=== PATIENT | female | born 1975 | race Caucasian/White ===

== ENCOUNTER → 2017-10-05 08:18 | Outpatient (CLI) | payer OTHER, SELFPAY ==
[2017-10-05 08:41] LABS: Basophils % 0.5 % (0.1-2.0); Eosinophils # 0.3 K/mm3 (0.0-0.4); Eosinophils % 3.7 % (0.1-12.0); Hematocrit 45.1 % (37.0-47.0); Hemoglobin 15.1 g/dL (12.2-16.2); Lymphocytes # 2.3 K/mm3 (0.7-4.5); Lymphocytes % 30.4 K/mm3 (10-50); Mean Corpuscular HGB Conc 33.4 g/dL (31.8-35.4); Mean Corpuscular Hemoglobin 30.3 pg (27.0-31.2); Mean Corpuscular Volume 90.8 fl (81-99); Mean Platelet Volume 7.3 fl (7.4-10.4); Monocytes # 0.3 K/mm3 (0.1-1.0); Neutrophils # 4.7 K/mm3 (1.8-7.8); Neutrophils % 61.3 % (37.0-80.0); Platelet Count 217 K/mm3 (142-424); Red Blood Count 4.97 M/mm3 (4.20-5.40); Red Cell Distribution Width 13.8 % (11.5-17.5); White Blood Count 7.6 K/mm3 (4.8-10.8)
[2017-10-05 09:25] LABS: Alanine Aminotransferase 24 U/L (12-78); Albumin Level 3.2 gm/dL (3.4-5.0); Alkaline Phosphatase 91 U/L (46-116); Anion Gap 8.2 mEq/L (5-15); Aspartate Amino Transferase 11 U/L (15-37); Bilirubin,Direct 0.1 mg/dL (0.0-0.2); Bilirubin,Indirect 0.3 mg/dL (0.0-0.9); Bilirubin,Total 0.4 mg/dL (0.2-1.0); Blood Urea Nitrogen 17 mg/dL (7-18); Calcium 8.4 mg/dL (8.5-10.1); Carbon Dioxide 30 mmol/L (21.0-32.0); Chloride 106 mmol/L (98-107); Chol/HDL Ratio 4.4 (1-3.5); Cholesterol 192 mg/dL (140-200); Creatinine,Serum 0.77 mg/dL (0.55-1.02); Estimated Glomerular Filt Rate 82 ml/min (>60); Free T4 (Free Thyroxine) 0.92 ng/dl (0.76-1.46); GFR (African American) 99 ML/MIN (>60); Glucose 83 mg/dL (74-106); HDL Cholesterol 44 mg/dL (29-89); LDL Cholesterol 134 mg/dL (0-130); Potassium 4.2 mmoL/L (3.5-5.1); Sodium 140 mmol/L (136-145); Thyroid Stimulating Hormone 6.02 uIU/ml (0.358-3.740); Total Protein,Serum 6.4 gm/dL (6.4-8.2); Triglycerides 72 mg/dL (30-200); VLDL Cholesterol 14 mg/dL (0-40)
== END ==
PROVIDERS: PCP Physician Assistant; Visit Provider Internal Medicine
DX: I25.10 Atherosclerotic heart disease of native coronary artery without angina pectoris (principal); R06.02 Shortness of breath; R07.9 Chest pain, unspecified
CPT/HCPCS: 36415; 80048; 80061; 80076; 84439; 84443; 85025

== ENCOUNTER → 2017-10-17 10:40 | Outpatient (CLI) | payer OTHER, SELFPAY ==
--- NOTE | 2017-10-17 10:42 | CA_ITS ---
PROCEDURE: 2-D M-mode and color Doppler study INDICATIONS FOR THE TEST: Chest pain + COPD Heart Murmur Tobacco Smoking+ Palpitations Fatigue+ Syncope Edema+ Hypertension+Diabetes Mellitus+ Rheumatic Fever SOB+DAVIDSON Obesity+Hyperlipidemia Family History HD Additional History PATIENT INFORMATION HEIGHT: 66 WEIGHT:352 GENDER: Female B/P:133/67 2-D/M-MODE INTERPRETATION: 2-D MEASUREMENTS OBSERVED VALUES IN CMS Right Ventricular Dimension (RVDd) 1.8 Interventricular Septum (Thickness)(IVsd) 1.1 Left Ventricular Internal Dimensions(LVIDd) 5.6 Left Ventricular Posterior Wall (Thickness)(LVPWd) 1.0 Aortic Root 3.1 Aortic Cusp Separation 2.0 Left Atrial Dimensions (LAD) 4.1 2D 1. Left atrium is mildly enlarged, left ventricle is normal size, there is mild concentric left ventricular hypertrophy, visually estimated ejection fraction 55% with no obvious regional wall motion abnormality. 2. The right atrium and right ventricle are mildly enlarged with normal contractility. 3. The aortic valve is minimally thickened and fibrosed. 4. The mitral and tricuspid valvular grossly normal. 5. The pulmonic valve is poorly visualized. 6. No significant pericardial effusion noted. DOPPLER INTERROGATION: Doppler interrogation of the aortic, mitral and tricuspid valvular presence of mild mitral and tricuspid regurgitation, calculated right ventricular systolic pressure is 37 mmHg consistent with mild pulmonary hypertension, grade 1 diastolic dysfunction seen with tissue Doppler evidence of raised left atrial pressure. CONCLUSION: 1. Mild biatrial enlargement, normal left ventricular size, mild concentric left ventricular hypertrophy, visually estimated ejection fraction 55% with no obvious regional wall motion abnormality, grade 1 diastolic dysfunction seen with tissue Doppler evidence of raised left atrial pressure. 2. Mildly enlarged right ventricle with normal contractility. 3. Mild mitral and tricuspid regurgitation, calculated right ventricular systolic pressure is 37 mmHg consistent with mild pulmonary hypertension. 4. No significant pericardial effusion noted.
--- NOTE | 2017-10-17 10:42 | NM_ITS ---
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 Resting blood pressure is 122/62. Stress blood pressure 119/65. FINDINGS: Ejection fraction is calculated to be 56. Stress images reveal mildly decreased activity in the anterior wall moderate to severely decreased activity in the inferior wall rest images reveal worsening activity in both the inferior and anterior wall. Gated images calculated ejection fraction of 56% with normal wall motion IMPRESSION: Abnormal high risk Myoview with reverse redistribution in both the anterior and inferior wall. Normal ejection fraction normal wall motion
--- NOTE | 2017-10-17 12:24 | HMH.ITSHM ---
ATORVASTATIN BISOPROLOL ASA NITRO
== END ==
PROVIDERS: PCP Physician Assistant; Visit Provider Internal Medicine
DX: I25.10 Atherosclerotic heart disease of native coronary artery without angina pectoris (principal); R06.02 Shortness of breath; R07.9 Chest pain, unspecified
CPT/HCPCS: 78452; 93017; 93306; 93325; A9502; J2785

== ENCOUNTER → 2018-04-05 11:16 | Outpatient (CLI) | payer OTHER, SELFPAY ==
--- NOTE | 2018-04-05 11:23 | XR_ITS ---
XR tibia fibula RT 2V CLINICAL INDICATION: ITS.REASON: RT KNEE AND ANKLE PAIN ORDERING PHYSICIAN: Hodan Villalba PATIENT AGE: 43 years Comparison: None FINDINGS: There are moderate osteoarthritic changes of the knee greater at the medial compartment. There is a bone plate overlying the distal fibula with a healed fracture of the distal fibula with good alignment. The bone plate has an unremarkable appearance. There are mild osteoarthritic changes of the ankle. IMPRESSION: Prior ORIF distal healed distal fibular fracture with good alignment.
--- NOTE | 2018-04-05 11:23 | XR_ITS ---
XR ankle RT min 3V HISTORY: ITS.REASON: RT KNEE AND ANKLE PAIN ORDERING PHYSICIAN: Hodan Villalba PATIENT AGE: 43 years Comparison: 04/24/2017 FINDINGS: There is a healed distal fibular fracture with a bone plate present. There has been interval removal of the distal most screw within the bone plate which also enters the distal tibia and there has been removal of the 2 screws within the medial malleoli region. There is good alignment with no acute fracture or dislocation. There is a rounded calcific density distal to the tip of the lateral malleolus consistent with an old fracture or accessory center of ossification. The ankle mortise is preserved and the talar dome has an unremarkable appearance. IMPRESSION: Good alignment status post ORIF distal fibula and removal of a distal bone plate screw and medial malleoli screws compared to the previous exam
--- NOTE | 2018-04-05 11:23 | XR_ITS ---
XR knee RT 3V HISTORY: ITS.REASON: RT KNEE AND ANKLE PAIN ORDERING PHYSICIAN: Hodan Villalba PATIENT AGE: 43 years COMPARISON: None FINDINGS: There are moderate tricompartmental osteoarthritic changes greatest at the medial compartment. Osteophytes are present at both medial lateral compartment and patellofemoral joint. No fracture or dislocation. No lytic or blastic change. IMPRESSION: Moderate osteoarthritis of the right knee greatest at the medial compartment
== END ==
PROVIDERS: PCP Nurse Practitioner Family; Visit Provider Nurse Practitioner Family
DX: M25.561 Pain in right knee (principal); M25.571 Pain in right ankle and joints of right foot; M79.661 Pain in right lower leg
CPT/HCPCS: 73562; 73590; 73610

== ENCOUNTER 2018-04-12 16:50 | Outpatient (RCR) | payer OTHER, SELFPAY | END 2018-05-15 12:12 | disposition home or self-care (01) | LOC: PT.CARL 16:50 | PROVIDERS: Visit Provider Nurse Practitioner Family | DX: M25.561 Pain in right knee (principal) | CPT/HCPCS: 97010; 97014; 97033; 97110; 97163; G0283 ==

== ENCOUNTER → 2018-05-17 09:45 | Outpatient (CLI) | payer OTHER, SELFPAY ==
--- NOTE | 2018-05-17 09:49 | XR_ITS ---
XR knee RT 4V HISTORY: Chronic knee pain ITS.REASON: Ap, Lateral, [place], [place] weight bearing ORDERING PHYSICIAN: Val Arroyo MD PATIENT AGE: 43 years COMPARISON: None COMPARISON: 04/05/2018 FINDINGS: There are moderate to severe osteoarthritic changes of the medial compartment and mild osteoarthritis of the lateral compartment and patellofemoral joint. No fracture or dislocation evident. Spurring is present in medial lateral compartments and at the intercondylar region and an interspinous area of the tibia. No fracture or dislocation. No lytic or blastic change. No significant change from 04/05/2018 given the difference in technique. IMPRESSION: Moderate to severe osteoarthritis of the right knee
== END ==
PROVIDERS: PCP Physician Assistant; Visit Provider Orthopaedic Surgery
DX: M25.561 Pain in right knee (principal)
CPT/HCPCS: 73564

== ENCOUNTER → 2018-10-25 07:50 | Outpatient (CLI) | payer OTHER, SELFPAY ==
[2018-10-25 08:35] LABS: Basophils % 0.4 % (0.1-2.0); Eosinophils # 0.2 K/mm3 (0.0-0.4); Eosinophils % 2.5 % (0.1-12.0); Hematocrit 47.2 % (37.0-47.0); Hemoglobin 15.7 g/dL (12.2-16.2); Lymphocytes # 2.4 K/mm3 (0.7-4.5); Lymphocytes % 29.5 % (10-50); Mean Corpuscular HGB Conc 33.2 g/dL (31.8-35.4); Mean Corpuscular Hemoglobin 30.1 pg (27.0-31.2); Mean Corpuscular Volume 90.7 fl (81-99); Mean Platelet Volume 7.2 fl (7.4-10.4); Monocytes # 0.5 K/mm3 (0.1-1.0); Monocytes % 6.2 % (1.7-9.3); Neutrophils # 4.9 K/mm3 (1.8-7.8); Neutrophils % 61.4 % (37.0-80.0); Platelet Count 253 K/mm3 (142-424); Red Cell Distribution Width 13.4 % (11.5-17.5)
[2018-10-25 11:01] LABS: Alanine Aminotransferase 24 U/L (12-78); Albumin Level 3.3 gm/dL (3.4-5.0); Alkaline Phosphatase 84 U/L (46-116); Anion Gap 9.6 mEq/L (5-15); Aspartate Amino Transferase 16 U/L (15-37); Bilirubin,Direct 0.1 mg/dL (0.0-0.2); Bilirubin,Indirect 0.5 mg/dL (0.0-0.9); Bilirubin,Total 0.6 mg/dL (0.2-1.0); Blood Urea Nitrogen 12 mg/dL (7-18); Calcium 8.8 mg/dL (8.5-10.1); Carbon Dioxide 33 mmol/L (21.0-32.0); Chloride 103 mmol/L (98-107); Chol/HDL Ratio 4.6 (1-3.5); Cholesterol 167 mg/dL (140-200); Creatinine,Serum 0.78 mg/dL (0.55-1.02); Estimated Glomerular Filt Rate 81 ml/min (>60); GFR (African American) 98 ML/MIN (>60); Glucose 78 mg/dL (74-106); HDL Cholesterol 36 mg/dL (29-89); LDL Cholesterol 112 mg/dL (0-130); Potassium 4.6 mmoL/L (3.5-5.1); Sodium 141 mmol/L (136-145); Thyroid Stimulating Hormone 5.91 uIU/ml (0.358-3.740); Total Protein,Serum 6.5 gm/dL (6.4-8.2); Triglycerides 95 mg/dL (30-200); Triiodothryronine (T3) Uptake 33 % (31-39); VLDL Cholesterol 19 mg/dL (0-40)
== END ==
PROVIDERS: Visit Provider Physician Assistant
DX: E78.49 Other hyperlipidemia (principal); I10 Essential (primary) hypertension; I73.9 Peripheral vascular disease, unspecified; R07.9 Chest pain, unspecified; R60.9 Edema, unspecified; Z72.0 Tobacco use; I70.1 Atherosclerosis of renal artery; G47.33 Obstructive sleep apnea (adult) (pediatric); I27.20 Pulmonary hypertension, unspecified; I51.89 Other ill-defined heart diseases
CPT/HCPCS: 36415; 80048; 80061; 80076; 84436; 84443; 84479; 85025

== ENCOUNTER 2019-06-27 09:57 | Emergency (ER) | payer OTHER, SELFPAY ==
[2019-06-27 10:06] VITALS: BP 117/85; PULSE 85; RESP 16; TEMP 36.5; O2SAT 98; BMI 57.7
[2019-06-27 10:10] VITALS: BMI 57.7
--- NOTE | 2019-06-27 10:10 | XR_ITS ---
PROCEDURE: XR CHEST 2V CLINICAL HISTORY: weakness Smoker COMPARISON: CXR CHEST(2 VIEWS-NOT PORTABLE) from 10/12/2013 CXR CHEST(2 VIEWS-NOT PORTABLE) from 08/14/2014 CXR2V XR chest 2V from 11/02/2017 FINDINGS: The cardiomediastinal silhouette and pulmonary vascularity are within normal limits. The lungs are clear without infiltrates, suspicious nodules, or pleural effusions. No acute bony abnormalities. IMPRESSION: No acute findings. Dictated by: Dilshad Singh MD 06/27/2019 11:07 Electronically signed by Dilshad Singh MD in [place] 06/27/2019 11:07
[2019-06-27 10:21] LABS: Basophils # 0.2 K/mm3 (0-0.2); Basophils % 1.8 % (0.1-2.0); Eosinophils # 0.3 K/mm3 (0.0-0.4); Eosinophils % 3.7 % (0.1-12.0); Hematocrit 43.5 % (37.0-47.0); Hemoglobin 14.3 g/dL (12.2-16.2); Lymphocytes # 2.8 K/mm3 (0.7-4.5); Lymphocytes % 31.3 % (10-50); Mean Corpuscular HGB Conc 32.8 g/dL (31.8-35.4); Mean Corpuscular Hemoglobin 30.1 pg (27.0-31.2); Mean Platelet Volume 7.8 fl (7.4-10.4); Monocytes # 0.3 K/mm3 (0.1-1.0); Monocytes % 3.5 % (1.7-9.3); Neutrophils # 5.4 K/mm3 (1.8-7.8); Neutrophils % 59.8 % (37.0-80.0); Platelet Count 231 K/mm3 (142-424); Red Blood Count 4.73 M/mm3 (4.20-5.40)
[2019-06-27 10:39] LABS: Microscopic, Urine URINE MICROSCOPIC (MICROSCOPIC)
[2019-06-27 10:40] LABS: Anion Gap 5.9 mEq/L (5-15); Blood Urea Nitrogen 15 mg/dl (7-17); Calcium 8.7 mg/dl (8.4-10.2); Carbon Dioxide 31 mmol/L (22.0-30.0); Chloride 102 mmol/L (98-107); Creatinine Clearance Estimated 96 mL/min (50-200); Estimated Glomerular Filt Rate 91 ml/min (>60); GFR (African American) 110 ML/MIN (>60); Glucose 136 mg/dl (74-100); Potassium 3.9 mmoL/L (3.5-5.1); Sodium 135 mmol/L (136-145)
--- NOTE | 2019-06-27 10:45 | ECG_ITS ---
APPROVED REPORT Exam: Resting ECG HR:78 bpm ECG Measurements Heart Rate 78 AXES DC 156 P 70 QRSd 102 QRS 24 QT 390 T 57 QTc 444 <Conclusion> Normal sinus rhythm Incomplete right bundle branch block Borderline ECG Electronically signed by : Tc Israel, 06/28/2019 21:41:13
[2019-06-27 10:54] LABS: Troponin I < 0.01 ng/ml (0.00-0.034)
[2019-06-27 10:55] LABS: Appearance,Urine CLEAR (Clear); Bilirubin,Urine Negative (Negative); Blood, Urine Negative (Negative); Color,Urine DK YELLOW (Yellow); Glucose,Urine (UA) Negative (Negative); Ketones,Urine Negative (Negative); Leukocyte Esterase,Urine TRACE (Negative); Nitrate,Urine Negative (Negative); PH,Urine 5.5 (5.0-8.5); Protein,Urine Negative (Negative); Specific Gravity, Urine >= 1.030 (1.005-1.030); Urobilinogen,Urine 0.2 EU/dl (0.2)
[2019-06-27 11:02] LABS: Bacteria,Urine 1+ /lpf
--- NOTE | 2019-06-27 11:27 | HMH.EDDIZZ ---
ED Disposition Clinical Impression: UTI (urinary tract infection), Dizziness Disposition: Home, Self-Care Condition on Discharge: Good Instructions: Dizziness, Nonvertigo Prescriptions: Sulfamethoxazole/Trimethoprim [Bactrim DS tablet] 1 each PO BID 10 Days #20 tab Transmission Status: Pending to [id number] Meclizine HCl [Meclizine 25mg Tab] 25 mg PO TID 10 Days #30 tab Transmission Status: Pending to [id number] Referrals: Sharee Patrick APRN [Primary Care Provider] - - Critical Care Critical Care Time: No Attestation: On 06/27/19, the high probability of a clinically significant, sudden or life threatening deterioration of the following system(s) required my full and direct attention, intervention and personal management. The time I documented below is in addition to time spent performing reported procedures but includes the following listed in this critical care notation. Medical Decision Making - Medical Records Medical records reviewed: Yes: I reviewed the patient's medical records. - Jimmie Inquiry Pt receiving controlled substance: No Vital Signs: 06/27/19 10:06 Temperature 97.7 F Temperature Source Oral Pulse Rate [Left Radial] 85 Respiratory Rate 16 Blood Pressure [Right Arm] 117/85 Blood Pressure Mean [Right Arm] 95 Blood Pressure Position [Right Arm] Sitting 02 Sat by Pulse Oximetry 98 Oxygen Delivery Method Room Air - Lab Data Lab results reviewed: Yes: I reviewed the patient's lab results. Lab Results 06/27/19 10:12: WBC 9.0, RBC 4.73, Hgb 14.3, Hct 43.5, MCV 92.0, MCH 30.1, MCHC 32.8, RDW 14.0, Plt Count 231, MPV 7.8, Neut % (Auto) 59.8, Lymph % (Auto) 31.3, Merrick % (Auto) 3.5, Eos % (Auto) 3.7, Baso % (Auto) 1.8, Neut # (Auto) 5.4, Lymph # (Auto) 2.8, Merrick # (Auto) 0.3, Eos # (Auto) 0.3, Baso # (Auto) 0.2 06/27/19 10:20: Sodium 135 L, Potassium 3.9, Chloride 102, Carbon Dioxide 31 H, Anion Gap 5.9, BUN 15, Creatinine 0.70, Estimated Creat Clear 96, Estimated GFR 91, Est GFR ( Amer) 110, Glucose 136 H, Calcium 8.7, Troponin I < 0.01 06/27/19 10:25: Urine Color Dk yellow, Urine Appearance Clear, Urine pH 5.5, Ur Specific Clementon >= 1.030, Urine Protein Negative, Urine Glucose (UA) Negative, Urine Ketones Negative, Urine Blood Negative, Urine Nitrate Negative, Urine Bilirubin Negative, Urine Urobilinogen 0.2, Ur Leukocyte Esterase Trace, Urine RBC 5-10, Urine WBC 10-20, Ur Squamous Epith Cells 5-10, Urine Bacteria 1+ Result diagrams: 06/27/19 10:12 06/27/19 10:20 Orders (Tests/Meds): ED MEDICATIONS Generic Name Dose Route Start Last Admin Trade Name Freq PRN Reason Stop Dose Admin Sodium Chloride 1,000 mls @ 999 mls/hr 06/27/19 11:15 06/27/19 11:11 Sod Chlor 0.9% 1000ml Bag IV 06/27/19 12:15 999 mls/hr .Q1H1M TERRY Administration ORDERS Category Date Time Status Troponin I Q3H Lab 06/27/19 13:15 Ordered Troponin I Q3H Lab 06/27/19 16:15 Ordered Urine Culture Stat Micro 06/27/19 10:25 Received Dizzy HPI - General Chief Complaint: Dizziness Stated Complaint: lightheaded,dizzy,no energy Time Seen by Provider: 06/27/19 11:27 Mode of Arrival: Ambulatory Source of Information: Patient Limitations: No Limitations Description of Symptoms (Recalled from ER Triage Doc. by RN): to ed per pvt car with c/o dizziness, lightheaded and fatique starting this am. pt states took BS and reading was 158. pt denies any chest pain, sob, fever, cough or extremity weakness. - History of Present Illness HPI Narrative: 44-year-old female presents the ED with fatigue and dysuria. Patient denies any fever or shortness of breath or cough. She states this started today. MD complaint: dizziness, lightheadedness Onset (ago): hour(s) Timing: sudden onset Description: room spinning History of similar episodes: Yes History of trauma: No Severity: mild Relieving factors: nothing Exacerbating factors: nothing - Related Data Home Medications
[2019-06-27 11:46] VITALS: BP 115/74; PULSE 87; RESP 16; TEMP 36.6; O2SAT 98
== END 2019-06-27 11:47 | disposition home or self-care (01) ==
PROVIDERS: Emergency Provider Family Medicine; PCP Nurse Practitioner Family
DX: N39.0 Urinary tract infection, site not specified (principal); E03.9 Hypothyroidism, unspecified; I25.10 Atherosclerotic heart disease of native coronary artery without angina pectoris; F41.8 Other specified anxiety disorders; E11.9 Type 2 diabetes mellitus without complications; I10 Essential (primary) hypertension; Z90.49 Acquired absence of other specified parts of digestive tract
CPT/HCPCS: 71046; 80048; 81001; 84484; 85025; 87086; 93005; 96365; 99284

== ENCOUNTER 2019-07-18 09:54 | Emergency (ER) | payer OTHER, SELFPAY ==
[2019-07-18 10:02] VITALS: BP 136/75; PULSE 86; RESP 18; TEMP 36.5; O2SAT 99; BMI 59.7
--- NOTE | 2019-07-18 10:14 | XR_ITS ---
PROCEDURE: XR KNEE LT 3V CLINICAL INDICATION: pain, no injury COMPARISON: [id number] XR knee RT 3V from 04/05/2018 [id number] XR knee RT 4V from 05/17/2018 XR KNEE RT 3V from 03/12/2019 XR KNEE LT 3V from 03/12/2019 FINDINGS: There are tricompartmental osteoarthritic changes. This is most severe at the medial compartment. No acute fracture or dislocation. No lytic or blastic change. IMPRESSION: Moderate to severe osteoarthritic change probably overall not significantly changed considering some difference in technique Dictated by: Dilshad Singh MD 07/18/2019 10:47 Electronically signed by Dilshad Singh MD in [place] 07/18/2019 10:47
--- NOTE | 2019-07-18 10:14 | XR_ITS ---
PROCEDURE: XR ANKLE LT MIN 3V CLINICAL INDICATION: pain, no injury COMPARISON: No exams were available for comparison FINDINGS: No fracture, dislocation, lytic change, or blastic change evident. No significant degenerative change There is moderate soft tissue swelling along the lateral aspect of the ankle. There is some faint soft tissue calcification medially and laterally. The talar dome has an unremarkable appearance and the ankle mortise is preserved. IMPRESSION: Soft tissue swelling otherwise negative Dictated by: Dilshad Singh MD 07/18/2019 10:52 Electronically signed by Dilshad Singh MD in [place] 07/18/2019 10:52
--- NOTE | 2019-07-18 10:25 | HMH.EDGENADL ---
ED Disposition Clinical Impression: Knee pain Qualifiers: Chronicity: acute Laterality: left Qualified Code(s): M25.562 - Pain in left knee Disposition: Home, Self-Care Condition on Discharge: Good Instructions: DI for Acute Pain -- Adult Additional Instructions: see pcp for follow up Prescriptions: predniSONE [Prednisone 20mg Tab] 20 mg PO BID #10 tab Transmission Status: Pending to [facility] Referrals: Sharee Patrick APRN [Primary Care Provider] - - Critical Care Critical Care Time: No Attestation: On , the high probability of a clinically significant, sudden or life threatening deterioration of the following system(s) required my full and direct attention, intervention and personal management. The time I documented below is in addition to time spent performing reported procedures but includes the following listed in this critical care notation. Medical Decision Making - Medical Records Medical records reviewed: Yes: I reviewed the patient's medical records. - Jimmie Inquiry Pt receiving controlled substance: No Vital Signs: 07/18/19 10:02 Temperature 97.7 F Temperature Source Oral Pulse Rate [Left Radial] 86 Respiratory Rate 18 Blood Pressure [Left Arm] 136/75 Blood Pressure Mean [Left Arm] 95 Blood Pressure Source [Left Arm] Automatic Cuff Blood Pressure Position [Left Arm] Sitting 02 Sat by Pulse Oximetry 99 Oxygen Delivery Method Room Air - Lab Data Lab results reviewed: Yes: I reviewed the patient's lab results. Orders (Tests/Meds): ORDERS Category Date Time Status XR ankle LT min 3V Stat Exams 07/18/19 10:14 Taken XR knee LT 3V Stat Exams 07/18/19 10:14 Taken - Radiology Data #1 Image(s): Knee, Ankle Image Reviewed: Yes I reviewed the patient's radiology image Preliminary Findings: Abnormal, No Fracture Seen General Adult HPI - General Chief complaint: PAIN Stated complaint: left knee pain Time Seen by Provider: 07/18/19 10:25 Mode of Arrival: Wheelchair Source of Information: Patient, Medical Record Limitations: No Limitations Description of Symptoms (Recalled from ER Triage Doc. by RN): Pt c/o pain in L knee radiating down to L ankle. Pt also reports tightness in L calf. Pt states no known injury. Pt reports has chronic pain in kathleen knees but pain in LLE has worsened over the past week. - History of Present Illness HPI narrative: ongoing daily pain tim lt knee - feels unstable - has seen ortho - no trauma Onset (ago): day(s) Location: lower extremity Severity: moderate Associated symptoms: denies other symptoms Treatments prior to arrival: none - Related Data Home Medications Medication Instructions Recorded Confirmed gabapentin 800 mg tablet 800 mg PO TID tab MDD PAIN 11/01/17 07/18/19 hydrocodone 5 mg-acetaminophen 325 1 tab PO TID PRN 11/01/17 07/18/19 mg tablet tramadol 50 mg tablet 50 mg PO TID 11/01/17 07/18/19 levothyroxine 100 mcg tablet 100 mcg PO DAILY tab 02/05/19 07/18/19 methocarbamol 750 mg tablet 750 mg PO TID tab 07/13/19 07/18/19 Previous Rx's Medication Instructions Recorded amlodipine 5 mg tablet 5 mg PO DAILY #30 tab 07/13/19 atorvastatin 20 mg tablet 20 mg PO DAILY #30 tab 07/13/19 bisoprolol fumarate 10 mg tablet 10 mg PO DAILY #30 tab 07/13/19 losartan 50 mg tablet 50 mg PO DAILY #30 tab 07/13/19 torsemide 100 mg tablet 50 mg PO DAILY #30 tab 07/13/19 predniSONE [Prednisone 20mg 20 mg PO BID #10 tab 07/18/19 Tab] Allergies Allergy/AdvReac Type Severity Reaction Status Date / Time isosorbide AdvReac Mild Verified 07/13/19 11:10 [facility] History - Hepatitis A Screen Drug use history?: No High risk sexual behaviors?: No History of sexually transmitted infection?: No Currently employed?: No Childcare worker?: No Do you have indoor plumbing?: Yes Do you have electricity?: Yes Attestation statement:: This patient has been screened for Hepatitis A risk factors. I have r
[2019-07-18 11:08] VITALS: BP 112/69; PULSE 78; RESP 16; TEMP 36.6; O2SAT 98
== END 2019-07-18 11:10 | disposition home or self-care (01) ==
PROVIDERS: Emergency Provider Emergency Medicine; PCP Nurse Practitioner Family
DX: M25.562 Pain in left knee (principal); F41.8 Other specified anxiety disorders; I25.10 Atherosclerotic heart disease of native coronary artery without angina pectoris; E78.5 Hyperlipidemia, unspecified; I10 Essential (primary) hypertension; Z90.49 Acquired absence of other specified parts of digestive tract; F17.210 Nicotine dependence, cigarettes, uncomplicated
CPT/HCPCS: 73562; 73610; 99282

== ENCOUNTER → 2019-08-03 14:11 | Outpatient (CLI) | payer OTHER, SELFPAY | PROVIDERS: PCP Nurse Practitioner Family; Visit Provider Internal Medicine Cardiovascular Disease | DX: G47.33 Obstructive sleep apnea (adult) (pediatric) (principal) | CPT/HCPCS: G0399 ==

== ENCOUNTER 2020-10-11 15:56 | Emergency (ER) | payer BC, OTHER, SELFPAY ==
[2020-10-11 17:00] VITALS: BP 138/99; PULSE 73; RESP 18; TEMP 36.9; O2SAT 97; BMI 62.9
[2020-10-11 17:24] VITALS: BP 138/99; PULSE 73; RESP 18; TEMP 36.9; O2SAT 97
--- NOTE | 2020-10-11 17:38 | HMH.EDUTC ---
[facility] Disposition Clinical Impression: Exposure to COVID-19 virus Disposition: Home, Self-Care Condition on Discharge: Good Instructions: DI for COVID-19 (Suspected or Confirmed ), Preventing the Spread of Coronavirus Discharge Instructions Additional Instructions: *Monitor Temp, Over the counter Motrin or Tylenol as directed/as needed Tylenol every 4 hours and Motrin every 6 hours (as long as your family doctor has told you that you can take it) for fever or pain. and straight to ER if unable to lower temp less than 101.0 after medication given Follow up IMMEDIATELY for new or worsening symptoms or no Noticeable improvement over the next 48-72 hours. 911 for difficulty breathing or swallowing You were tested for today for COVID19 your test result should be back in the next 24-48 hours, You was given written instructions for [facility] portal you can see your results there when they come back you may check it often to see if they are done You was given a handout with instructions for Self Quarantine and Self isolation for while you wait on test results and what to do if they are positive If you are positive the Health Dept will be contacting you also Make sure to take your Vitamins Vit. C Vit D and Zinc if you can take them Referrals: Sharee Patrick APRN [Primary Care Provider] - As needed Forms: Work/School Release Time of Disposition: 17:47 Medical Decision Making - Jimmie Inquiry Pt receiving controlled substance: No Jimmie was queried for this patient: No Vital Signs: 10/11/20 17:00 10/11/20 17:24 Temperature 98.5 F 98.5 F Temperature Source Oral Pulse Rate 73 Pulse Rate [Right Brachial] 73 Respiratory Rate 18 18 Blood Pressure 138/99 H Blood Pressure [Right Arm] 138/99 H Blood Pressure Mean [Right Arm] 112 Blood Pressure Source [Right Arm] Automatic Cuff Blood Pressure Position [Right Arm] Sitting 02 Sat by Pulse Oximetry 97 Oxygen Delivery Method Room Air Orders (Tests/Meds): ORDERS Category Date Time Status Covid-19 Nasal PCR ([facility]) Routine Lab 10/11/20 17:46 Ordered [facility] HPI - General Stated complaint: covid TEST Time Seen by Provider: 10/11/20 17:38 Mode of Arrival: Ambulatory Source of Information: Patient Limitations: No Limitations Description of Symptoms (Recalled from Triage Doc. by RN): COVID TEST D/T EXPOSURE. C/O SOA AND HEADACHE HEENT Symptoms (Recalled from RN notes): No Resp Symptoms (Recalled from RN notes): Yes Skin Symptoms (Recalled from RN notes): No MS Symptoms (Recalled from RN notes): No Functional Status (Recalled from RN notes): WNL - History of Present Illness Provider Complaint: Patient states that her tested positive for COVID earlier today and she has been having headache and cough and thought it may have been where she smokes States that at time she has SOA but she does that all the time so never thought about COVID - Related Data Home Medications Medication Instructions Recorded Confirmed gabapentin 800 mg tablet 800 mg PO TID tab MDD PAIN 11/01/17 09/05/19 hydrocodone 5 mg-acetaminophen 325 1 tab PO TID PRN 11/01/17 09/05/19 mg tablet tramadol 50 mg tablet 50 mg PO TID 11/01/17 09/05/19 levothyroxine 100 mcg tablet 100 mcg PO DAILY tab 02/05/19 09/05/19 methocarbamol 750 mg tablet 750 mg PO TID tab 07/13/19 09/05/19 aspirin 81 mg tablet,delayed 81 mg PO DAILY 09/05/19 09/05/19 release Previous Rx's Medication Instructions Recorded atorvastatin 20 mg tablet 20 mg PO DAILY #30 tab 01/11/20 bisoprolol fumarate 10 mg tablet 10 mg PO DAILY #30 tab 01/11/20 spironolactone 100 mg tablet 100 mg PO DAILY #30 tab 01/11/20 omeprazole 40 mg capsule,delayed 40 mg PO QDAY #30 cap 04/18/20 release bupropion HCl 150 mg tablet,12 hr 150 mg PO BID #87 tab 07/11/20 sustained-release losartan 100 mg tablet 100 mg PO DAILY #30 tab 07/11/20 nicotine See Rx Instructions TRANSDERMA 07/11/20 21mg/24hr-14mg/24hr-7mg/24hr daily .COMP
--- NOTE | 2020-10-12 15:25 | PC.NURSE ---
PATIENT NOTIFIED OF POSITIVE COVID TEST AT THIS TIME
== END 2020-10-11 17:56 | disposition home or self-care (01) ==
PROVIDERS: Emergency Provider Nurse Practitioner; PCP Nurse Practitioner Family
DX: U07.1 COVID-19 (principal)
CPT/HCPCS: 99202; G0463; U0003

== ENCOUNTER 2020-10-16 11:23 | Emergency (ER) | payer BC, OTHER, SELFPAY ==
[2020-10-16 11:25] VITALS: BP 152/98; PULSE 88; RESP 20; TEMP 37.1; O2SAT 90; BMI 61.0
[2020-10-16 11:26] VITALS: O2SAT 92
--- NOTE | 2020-10-16 11:55 | XR_ITS ---
PROCEDURE: XR CHEST PORTABLE CLINICAL HISTORY: short of breath COMPARISON: CR CXR CHEST(2 VIEWS-NOT PORTABLE) from 08/14/2014 CR CXR2V XR chest 2V from 11/02/2017 CR XR CHEST 2V from 06/27/2019 FINDINGS: The cardiomediastinal silhouette and pulmonary vascularity are within normal limits. The lungs are clear without infiltrates, suspicious nodules, or pleural effusions. No acute bony abnormalities. IMPRESSION: No acute findings. Dictated by: Dilshad Singh MD 10/16/2020 12:42 Dilshad Singh MD in [place] 10/16/2020 12:42
--- NOTE | 2020-10-16 12:05 | HMH.EDGENADL ---
ED Disposition Clinical Impression: COVID-19 Disposition: Home, Self-Care Condition on Discharge: Fair Instructions: DI for COVID-19 (Suspected or Confirmed ) Additional Instructions: You have been evaluated for COVID-19. Please take Tylenol for pain and fever. Stay hydrated. Monitor your pulse ox at home. Return to the emergency department if your oxygen saturation drops below 92%. Return to the emergency department for any new or worsening symptoms. Prescriptions: predniSONE [Prednisone 20mg Tab] 20 mg PO DAILY #5 tab Transmission Status: Pending to [id number] Referrals: Sharee Patrick APRN [Primary Care Provider] - Time of Disposition: 14:15 - Critical Care Critical Care Time: No Attestation: On 10/16/20, the high probability of a clinically significant, sudden or life threatening deterioration of the following system(s) required my full and direct attention, intervention and personal management. The time I documented below is in addition to time spent performing reported procedures but includes the following listed in this critical care notation. Medical Decision Making - Medical Records Medical records reviewed: Yes: I reviewed the patient's medical records. - Jimmie Inquiry Pt receiving controlled substance: No Vital Signs: 10/16/20 11:25 10/16/20 11:26 10/16/20 12:54 Temperature 98.8 F Temperature Source Oral Pulse Rate 68 Pulse Rate [Left Radial] 88 Respiratory Rate 20 18 Blood Pressure 135/88 Blood Pressure [Right Arm] 152/98 H Blood Pressure Mean [Right Arm] 116 Blood Pressure Source [Right Arm] Automatic Cuff Blood Pressure Position [Right Arm] Sitting 02 Sat by Pulse Oximetry 90 L 92 L 95 Oxygen Delivery Method Room Air Nasal Cannula Room Air Oxygen Flow Rate (LPM) 3 10/16/20 14:12 Temperature Temperature Source Pulse Rate Pulse Rate [Left Radial] Respiratory Rate 22 Blood Pressure Blood Pressure [Right Arm] Blood Pressure Mean [Right Arm] Blood Pressure Source [Right Arm] Blood Pressure Position [Right Arm] 02 Sat by Pulse Oximetry 95 Oxygen Delivery Method Room Air Oxygen Flow Rate (LPM) - Lab Data Lab Results 10/16/20 11:50: WBC 3.8 L, RBC 4.69, Hgb 14.4, Hct 43.2, MCV 92.2, MCH 30.6, MCHC 33.2, RDW 14.7, Plt Count 158, MPV 8.4, Neut % (Auto) 53.7, Lymph % (Auto) 38.8, [place] % (Auto) 4.9, Eos % (Auto) 1.6, Baso % (Auto) 0.9, Neut # (Auto) 2.1, Lymph # (Auto) 1.5, [place] # (Auto) 0.2, Eos # (Auto) 0.1, Baso # (Auto) 0.0 10/16/20 11:50: Sodium 141, Potassium 3.7, Chloride 107, Carbon Dioxide 26, Anion Gap 11.7, BUN 5 L, Creatinine 0.70, Estimated Creat Clear 99, Estimated GFR 90, Est GFR ( Amer) 109, Glucose 92, Calcium 8.1 L, Total Bilirubin 0.5, AST 79 H, ALT 65, Alkaline Phosphatase 95, Total Protein 6.6, Albumin 3.5, Globulin 3.1, Albumin/Globulin Ratio 1.1 10/16/20 11:56: VBG pH 7.39, VBG pCO2 38.3, VBG pO2 80.7 H, VBG HCO3 22.6 L, VBG Total CO2 23.8, VBG O2 Saturation 95.7 H, VBG Base Excess -2.4 Result diagrams: 10/16/20 11:50 10/16/20 11:50 Orders (Tests/Meds): ED MEDICATIONS Discontinued Medications Generic Name Dose Route Start Last Admin Trade Name Freq PRN Reason Stop Dose Admin Dexamethasone Sodium Phosphate 8 mg 10/16/20 11:56 10/16/20 12:10 Dexamethasone 4mg/Ml 1ml Vial IV 10/16/20 11:57 8 mg ONCE ONE Administration Medical Decision Narrative: In summary this is a 45-year-old female presenting to the emergency department with body aches and worsening shortness of breath, after diagnosis of COVID-19. Patient clinically stable on arrival. Initial oxygen saturation is 89% on room air. She does not use home oxygen. Placed on 2 L by nasal cannula. Given 8mg dexamethasone. Will obtain CBC, CMP, chest x-ray Initial laboratory results are reassuring. No leukocytosis. No renal insufficiency. Chest x-ray shows no focal or multifocal pneumonia. On reassessment patient is adis
[2020-10-16 12:18] LABS: Basophils % 0.9 % (0.1-2.0); Eosinophils # 0.1 K/mm3 (0.0-0.4); Eosinophils % 1.6 % (0.1-12.0); Hematocrit 43.2 % (37.0-47.0); Hemoglobin 14.4 g/dL (12.2-16.2); Lymphocytes # 1.5 K/mm3 (0.7-4.5); Lymphocytes % 38.8 % (10-50); Mean Corpuscular HGB Conc 33.2 g/dL (31.8-35.4); Mean Corpuscular Hemoglobin 30.6 pg (27.0-31.2); Mean Corpuscular Volume 92.2 fl (81-99); Mean Platelet Volume 8.4 fl (7.4-10.4); Monocytes # 0.2 K/mm3 (0.1-1.0); Monocytes % 4.9 % (1.7-9.3); Neutrophils # 2.1 K/mm3 (1.8-7.8); Neutrophils % 53.7 % (37.0-80.0); Platelet Count 158 K/mm3 (142-424); Red Blood Count 4.69 M/mm3 (4.20-5.40); Red Cell Distribution Width 14.7 % (11.5-17.5); White Blood Count 3.8 K/mm3 (4.8-10.8)
[2020-10-16 12:23] LABS: VBG Base Excess -2.4 mmol/L (-2.4-2.3); VBG HCO3 22.6 mmol/L (23-30); VBG Oxygen Saturation 95.7 % (50-70); VBG PCO2 38.3 mmol/L (35-51); VBG PH 7.39 mmol/L (7.31-7.41); VBG PO2 80.7 mmol/L (28-40); VBG Total CO2 23.8 mmol/L (23-27)
[2020-10-16 12:28] LABS: Chloride 107 mmol/L (98-107); Potassium 3.7 mmoL/L (3.5-5.1); Sodium 141 mmol/L (136-145)
[2020-10-16 12:31] LABS: Alanine Aminotransferase 65 U/L (12-78); Albumin Level 3.5 g/dl (3.5-5.0); Albumin/Globulin Ratio 1.1 (1.1-1.8); Alkaline Phosphatase 95 U/L (38-126); Anion Gap 11.7 mEq/L (5-15); Aspartate Amino Transferase 79 U/L (14-36); Bilirubin,Total 0.5 mg/dl (0.2-1.3); Blood Urea Nitrogen 5 mg/dl (7-17); Carbon Dioxide 26 mmol/L (22.0-30.0); Creatinine Clearance Estimated 99 mL/min (50-200); Estimated Glomerular Filt Rate 90 ml/min (>60); GFR (African American) 109 ML/MIN (>60); Globulin 3.1 g/dL (1.3-3.2); Total Protein,Serum 6.6 g/dl (6.3-8.2)
[2020-10-16 12:32] LABS: Calcium 8.1 mg/dl (8.4-10.2); Glucose 92 mg/dl (74-100)
[2020-10-16 12:54] VITALS: BP 135/88; PULSE 68; RESP 18; O2SAT 95
[2020-10-16 14:12] VITALS: RESP 22; O2SAT 95
--- NOTE | 2020-10-16 14:12 | PC.NURSE ---
contacted care management to get home oxygen set up for pt, spoke with rachele coats, states she will get it arranged for pt.
--- NOTE | 2020-10-16 14:29 | SW/DCPLANNER ---
SET UP PATIENT WITH HOME 02 IN ED PRIOR TO DISCHARGING HOME.. PATIENT REQUESTED [facility] SINCE SHE ALREADY HAS A CPAP WITH THEM... IT WILL BE DELIVERED TO THE ER...
--- NOTE | 2020-10-16 16:06 | PC.NURSE ---
notified warehouse order selector of admission
[2020-10-16 16:59] VITALS: BP 135/88; PULSE 87; RESP 20; TEMP 37.1; O2SAT 95
== END 2020-10-16 17:45 | disposition home or self-care (01) ==
PROVIDERS: Emergency Provider Emergency Medicine; PCP Nurse Practitioner Family
DX: U07.1 COVID-19 (principal); R06.02 Shortness of breath; R05 Cough; F41.8 Other specified anxiety disorders; K21.9 Gastro-esophageal reflux disease without esophagitis; I10 Essential (primary) hypertension; E03.9 Hypothyroidism, unspecified; F17.210 Nicotine dependence, cigarettes, uncomplicated
CPT/HCPCS: 71045; 80053; 82803; 85025; 96374; 99283

== ENCOUNTER → 2020-12-09 13:34 | Outpatient (CLI) | payer OTHER, SELFPAY ==
--- NOTE | 2020-12-09 13:38 | CA_ITS ---
APPROVED REPORT EXAM: Comprehensive 2D, Doppler, and color-flow Echocardiogram Branch Employment Coordinator: Raina Brannon RT(R) Ht: 5 ft 6 in Wt: 384lbs BSA: 2.64 BP: 135/81 mmHg Indications: SOA, smoker, edema, HTN, hyperlipidemia, PHTN, CAPRI, Hx of COVID, asthma, GERD, CAD, home O2 2D Dimensions LVOT 2.43 cm (M/F) 1.5-2.5 LA Volume 20.60 mL LA Volume Index 7.80 mL/m2 (M/F) 16-34 M-Mode Dimensions RVDd 2.60 cm (0.9-2.6) LA Diam 2.78 cm (1.9-4.0) LVDd 5.45 cm (3.5-5.7) Ao Diam 3.11 cm (2.0-3.7) LVDs 4.12 cm (3.5-5.7) IVSd 0.80 cm (0.6-1.1) PWd 0.72 cm (0.6-1.1) EF (Teich) 48.00% FS 24.40% EDV (Teich) 144.40 mL ESV (Teich) 75.10 mL LV Diastology E Decel Time 173.00 (160-240 msec) E/A Ratio 0.9 MED E' 12.40 (< 7 cm/sec) E'/MED E' Ratio 5.77 (>14) LAT E' 11.00 (<10 cm/sec) E/LAT E' Ratio 6.51 (>14) Mitral Valve MV E Max Farhan. 72.00 (40-130 cm/s) MV A Velocity 78.00 (40-130 cm/s) E/A Ratio 0.92 MV Decel. Time 173.00 (160-240 ms) MV PHT 51.00 ms Tricuspid Valve TR P. Velocity 306.00 cm/s RAP Estimate 10.00 mmHg RVSP 47.50 mmHg Left Ventricle Left atrium is mildly enlarged, left ventricle is normal size, mild concentric left ventricular hypertrophy, visually estimated ejection fraction 55% with no regional wall motion abnormality, diastolic parameters are inconclusive. Right Ventricle Right atrium and right ventricle are mildly enlarged with normal contractility. Aortic Valve Aortic valve is minimally thickened and fibrosed, there is no aortic stenosis or aortic insufficiency. Mitral Valve Mitral valve is grossly normal, there is trace mitral regurgitation. Tricuspid Valve Tricuspid grossly normal, there is trace tricuspid regurgitation, calculated right ventricular systolic pressure 47 mmHg. Pulmonic Valve Pulmonic valve is poorly visualized. Great Vessels Aortic root is normal size. Inferior vena cava is normal size with normal inspiratory collapse. Pericardium No significant pericardial effusion noted. Conclusion 1. Mild biatrial enlargement, normal left ventricular size, mild concentric left ventricular hypertrophy, visually estimated ejection fraction 55% with no regional wall motion abnormality, diastolic parameters are inconclusive. 2. Mildly enlarged right ventricle with normal contractility. 3. Trace mitral and tricuspid regurgitation, calculated right ventricular systolic pressure 47 mmHg. 4. No significant pericardial effusion noted. 5. Inferior vena cava is normal size with normal inspiratory collapse. Electronically signed by : Nitesh Rubalcava MD 12/09/2020 20:01:31
== END ==
PROVIDERS: PCP Nurse Practitioner Family; Visit Provider Nurse Practitioner Family
DX: R06.02 Shortness of breath (principal)
CPT/HCPCS: 93306

== ENCOUNTER → 2021-03-19 12:01 | Outpatient (CLI) | payer OTHER, SELFPAY ==
[2021-03-19 13:27] LABS: Basophils # 0.1 K/mm3 (0-0.2); Eosinophils # 0.3 K/mm3 (0.0-0.4); Eosinophils % 2.6 % (0.1-12.0); Hematocrit 47.1 % (37.0-47.0); Hemoglobin 15.6 g/dL (12.2-16.2); Lymphocytes # 3.5 K/mm3 (0.7-4.5); Mean Corpuscular HGB Conc 33.2 g/dL (31.8-35.4); Mean Corpuscular Hemoglobin 30.3 pg (27.0-31.2); Mean Corpuscular Volume 91.3 fl (81-99); Mean Platelet Volume 8.1 fl (7.4-10.4); Monocytes # 0.6 K/mm3 (0.1-1.0); Monocytes % 4.8 % (1.7-9.3); Neutrophils # 6.9 K/mm3 (1.8-7.8); Neutrophils % 60.6 % (37.0-80.0); Platelet Count 304 K/mm3 (142-424); Red Blood Count 5.16 M/mm3 (4.20-5.40); Red Cell Distribution Width 14.6 % (11.5-17.5); White Blood Count 11.4 K/mm3 (4.8-10.8)
[2021-03-19 14:47] LABS: Alanine Aminotransferase 30 U/L (12-78); Alkaline Phosphatase 94 U/L (38-126); Anion Gap 12.2 mEq/L (5-15); Aspartate Amino Transferase 30 U/L (14-36); Bilirubin,Direct 0.1 mg/dl (0.0-0.4); Bilirubin,Indirect 0.8 mg/dL (0.0-0.9); Bilirubin,Total 0.9 mg/dl (0.2-1.3); Bilirubin,Unconjugated 0.8 mg/dL (0.0-1.1); Blood Urea Nitrogen 16 mg/dl (7-17); Calcium 8.6 mg/dl (8.4-10.2); Carbon Dioxide 33 mmol/L (22.0-30.0); Chloride 100 mmol/L (98-107); Chol/HDL Ratio 3.6 (1-3.5); Cholesterol 160 mg/dl (140-200); Estimated Glomerular Filt Rate 90 ml/min (>60); GFR (African American) 109 ML/MIN (>60); Glucose 77 mg/dl (74-100); HDL Cholesterol 44 mg/dl (40-60); Potassium 4.2 mmoL/L (3.5-5.1); Sodium 141 mmol/L (136-145); Total Protein,Serum 6.8 g/dl (6.3-8.2); Triglycerides 147 mg/dl (30-150); VLDL Cholesterol 29 mg/dL (0-40)
[2021-03-19 15:04] LABS: Free Thyroxine Index 3.3 ug/dL (5.93-13.13); Triiodothryronine (T3) Uptake 33 % (23.5-40.5)
[2021-03-19 15:18] LABS: Thyroid Stimulating Hormone 4.96 uIU/mL (0.465-4.68)
== END ==
PROVIDERS: PCP Nurse Practitioner Family; Visit Provider Urology
DX: R00.2 Palpitations (principal); I49.3 Ventricular premature depolarization; R06.00 Dyspnea, unspecified; I11.9 Hypertensive heart disease without heart failure; E78.2 Mixed hyperlipidemia; I70.1 Atherosclerosis of renal artery; I73.9 Peripheral vascular disease, unspecified; R60.1 Generalized edema; E11.9 Type 2 diabetes mellitus without complications; I63.9 Cerebral infarction, unspecified; Z72.0 Tobacco use
CPT/HCPCS: 36415; 80048; 80061; 80076; 84436; 84443; 84479; 85025; 93270

== ENCOUNTER 2021-06-22 19:16 | Emergency (ER) | payer OTHER, SELFPAY ==
--- NOTE | 2021-06-22 19:52 | XR_ITS ---
PROCEDURE INFORMATION: Exam: XR Chest Exam date and time: 06/22/2021 7:48 PM Age: 46 years old Clinical indication: Shortness of breath; Additional info: SOB TECHNIQUE: Imaging protocol: XR of the chest. Views: 2 views. COMPARISON: CR XR CHEST PORTABLE 10/16/2020 12:12 PM FINDINGS: Lungs: Unremarkable. No consolidation. Pleural spaces: Unremarkable. No pleural effusion. No pneumothorax. Heart/Mediastinum: Unremarkable. No cardiomegaly. Bones/joints: Unremarkable. IMPRESSION: No acute findings.
[2021-06-22 20:10] VITALS: BP 125/69; PULSE 113; RESP 21; TEMP 36.4; O2SAT 92; BMI 57.2
--- NOTE | 2021-06-22 20:34 | HMH.EDUTC ---
[facility] [place] Disposition Clinical Impression: COPD exacerbation Disposition: Home, Self-Care Condition on Discharge: Good Instructions: DI for Chronic Obstructive Pulmonary Disease Additional Instructions: Drink plenty of fluids. Take tylenol or ibuprofen for pain or fever. Take the medications as directed. Follow up with your regular doctor. GO TO THE ER FOR ANY WORSENING SYMPTOMS Don't start the oral steroids (prednisone) until tomorrow, since you had the shot here today. The cough medication (promethazine dm) will make you drowsy, so don't drive or operate heavy machinery after taking it. Prescriptions: Albuterol Sulfate [Albuterol Sulfate Hfa] 2 puffs IH Q6HP PRN 30 Days #1 each PRN Reason: Shortness Of Breath Transmission Status: Pending to [facility] Promethazine/Dextromethorphan [Promethazine-Dm Syrup] 5 ml PO Q6HP PRN #240 ml PRN Reason: Cough Transmission Status: Pending to [facility] 493 Amoxicillin/Potassium Clav [Amox-Clav 875-125 mg Tablet] 1 tab PO BID #20 tab Transmission Status: Pending to [facility] 493 predniSONE [Deltasone 10mg tablet] 10 mg PO DAILY 9 Days #21 tab Transmission Status: Pending to [facility] Referrals: Sharee Patrick APRN [Primary Care Provider] - Time of Disposition: 21:00 Medical Decision Making - Medical Records Medical records reviewed: No: I reviewed the patient's medical records. - Jimmie Inquiry Pt receiving controlled substance: No Vital Signs: 06/22/21 20:10 Temperature 97.6 F Temperature Source Oral Pulse Rate [Left Radial] 113 H Respiratory Rate 21 Blood Pressure [Right Arm] 125/69 Blood Pressure Mean [Right Arm] 87 02 Sat by Pulse Oximetry 92 L - Lab Data Lab results reviewed: Yes: I reviewed the patient's lab results. Orders (Tests/Meds): ED MEDICATIONS Discontinued Medications Generic Name Dose Route Start Last Admin Trade Name Freq PRN Reason Stop Dose Admin Ceftriaxone Sodium 1 gm 06/22/21 20:43 06/22/21 20:52 Ceftriaxone 1gm Vial IM 06/22/21 20:44 1 gm ONCE ONE Administration Lidocaine HCl 0 ml 06/22/21 20:43 06/22/21 20:53 Lidocaine 1% 5ml Pf Vial IM 06/22/21 20:44 2 ml ONCE ONE Administration Methylprednisolone Sodium Succinate 125 mg 06/22/21 20:43 06/22/21 20:53 Methylprednisolone Sod Succ 125mg Vial IM 06/22/21 20:44 125 mg ONCE ONE Administration [facility] [place] HPI - General Stated complaint: Cough SOB Time Seen by Provider: 06/22/21 20:34 Mode of Arrival: Ambulatory Source of Information: Patient Limitations: No Limitations Description of Symptoms (Recalled from Triage Doc. by RN): pt here for a cough that she has not been able to get rid of. she had covid in october, she was put on oxygen. but now is unable to afford the oxygen. HEENT Symptoms (Recalled from RN notes): No Resp Symptoms (Recalled from RN notes): Yes Skin Symptoms (Recalled from RN notes): No MS Symptoms (Recalled from RN notes): No Functional Status (Recalled from RN notes): wnl - History of Present Illness Provider Complaint: She has had a chronic cough since she had covid-19 around 6 months ago. She has a history of copd also. She denies any recent fever or chills. She does have pleuritic chest pain when she coughs a lot. - Related Data Home Medications Medication Instructions Recorded Confirmed gabapentin 800 mg tablet 800 mg PO TID tab MDD PAIN 11/01/17 04/08/21 tramadol 50 mg tablet 50 mg PO TID 11/01/17 04/08/21 methocarbamol 750 mg tablet 750 mg PO TID tab 07/13/19 04/08/21 aspirin 81 mg tablet,delayed 81 mg PO DAILY 09/05/19 04/08/21 release hydrocodone 5 mg-acetaminophen 325 1 tab PO TID PRN tab 03/19/21 04/08/21 mg tablet levothyroxine 50 mcg tablet 50 mcg PO DAILY tab 04/08/21 04/08/21 Previous Rx's Medication Instructions Recorded spironolactone 100 mg tablet 100 mg PO DAILY #30 tab 01/11/20 losartan 100 mg tablet 100 mg PO DAILY #3
[2021-06-22 21:03] VITALS: BP 125/69; PULSE 95; RESP 19; TEMP 36.4
== END 2021-06-22 21:04 | disposition home or self-care (01) ==
PROVIDERS: Emergency Provider Nurse Practitioner Family; PCP Nurse Practitioner Family
DX: J44.1 Chronic obstructive pulmonary disease with (acute) exacerbation (principal); I11.0 Hypertensive heart disease with heart failure; I50.9 Heart failure, unspecified; K21.9 Gastro-esophageal reflux disease without esophagitis; E78.5 Hyperlipidemia, unspecified; E03.9 Hypothyroidism, unspecified; M79.7 Fibromyalgia; G43.909 Migraine, unspecified, not intractable, without status migrainosus; F32.A Depression, unspecified; F41.9 Anxiety disorder, unspecified; F17.210 Nicotine dependence, cigarettes, uncomplicated; Z79.1 Long term (current) use of non-steroidal anti-inflammatories (NSAID); Z79.82 Long term (current) use of aspirin; Z79.51 Long term (current) use of inhaled steroids; Z79.899 Other long term (current) drug therapy; Z88.8 Allergy status to other drugs, medicaments and biological substances; Z82.49 Family history of ischemic heart disease and other diseases of the circulatory system
CPT/HCPCS: 71046; 96372; 99213; G0463; J0696

== ENCOUNTER 2021-09-22 09:15 | Emergency (ER) | payer OTHER, SELFPAY ==
[2021-09-22 10:10] VITALS: BP 110/72; PULSE 69; RESP 19; TEMP 36.7; O2SAT 97; BMI 59.3
--- NOTE | 2021-09-22 10:44 | HMH.EDUTC ---
[facility] [place] Impression: COPD exacerbation Disposition: Home, Self-Care Condition on Discharge: Good Instructions: Chronic Obstructive Pulmonary Disease (Alternative Therapy), Physical Activity for People with COPD Additional Instructions: ? Start antibiotic today. Be sure to complete entire prescription even if feeling better ? Monitor temp. Tylenol every 4 hours as needed and / or ibuprofen every 6 hours as needed ( As long as your primary care physician has told you that it ok to take both. For fever/aches/pains ER if no less than 101 despite Tylenol or Motrin ? Humidifier/vaporizer or hot steamy shower ? Inhaler every 4-6 hours as needed like we discussed. If unsure how to use it, ask pharmacist to demonstrate how. Should help open airways and improve cough, wheezing, and shortness of breath *Promethazine DM cough syrup will cause drowsiness. Use only at night. No driving, operating machinery or caring for small children after taking it *Start steroid today. Helps with inflammation therefore, cough and wheezing. Follow directions on the package. Reviewed side effects. Patient reports taking them before. Follow up IMMEDIATELY for new or worsening of symptoms OR no noticeable improvement over the next 48-72 hours. 911 immediately for any life threatening symptoms such as chest pain or difficulty breathing Prescriptions: Cefdinir [Omnicef 300mg Capsule] 300 mg PO BID #20 cap Transmission Status: Received by [facility] predniSONE [Prednisone 20mg Tab] 20 mg PO BID 5 Days #10 tab Transmission Status: Received by [facility] Promethazine/Dextromethorphan [Promethazine-Dm Syrup] 2.5 - 5 ml PO Q6H PRN #150 ml PRN Reason: Cough Transmission Status: Received by [facility] Referrals: Provider,Referral, [Primary Care Provider] - As needed Time of Disposition: 10:51 Medical Decision Making - Jimmie Inquiry Pt receiving controlled substance: No Jimmie was queried for this patient: No Vital Signs: 09/22/21 10:10 09/22/21 10:45 Temperature 98.1 F 98.1 F Temperature Source Oral Pulse Rate 69 Pulse Rate [Right Brachial] 69 Respiratory Rate 19 19 Blood Pressure 110/72 Blood Pressure [Right Arm] 110/72 Blood Pressure Mean [Right Arm] 84 Blood Pressure Source [Right Arm] Automatic Cuff Blood Pressure Position [Right Arm] Sitting 02 Sat by Pulse Oximetry 97 Oxygen Delivery Method Room Air Orders (Tests/Meds): ORDERS Category Date Time Status Covid-19 Nasal PCR ([facility]) Routine Lab 09/22/21 10:10 Re[place] [facility] [place] - General Stated complaint: SOA, chest congestion Time Seen by Provider: 09/22/21 10:44 Mode of Arrival: Ambulatory Source of Information: Patient Limitations: No Limitations Description of Symptoms (Recalled from Triage Doc. by RN): PATIENT C/O CHEST CONGESTION, COUGH X 2 DAYS. REQUESTING COVID TEST HEENT Symptoms (Recalled from RN notes): No Resp Symptoms (Recalled from RN notes): Yes Skin Symptoms (Recalled from RN notes): No MS Symptoms (Recalled from RN notes): No Functional Status (Recalled from RN notes): WNL - History of Present Illness Provider Complaint: Patient states she has history of COPD States that she has been having cough and chest congestion States that she has been around someone that she suspects may have had COVID but not sure States that she wanted to come in and get treatment before it got too bad - Related Data Home Medications Medication Instructions Recorded Confirmed gabapentin 800 mg tablet 800 mg PO TID tab MDD PAIN 11/01/17 04/08/21 tramadol 50 mg tablet 50 mg PO TID 11/01/17 04/08/21 methocarbamol 750 mg tablet 750 mg PO TID tab 07/13/19 04/08/21 aspirin 81 mg tablet,delayed 81 mg PO DAILY 09/05/19 04/08/21 release hydrocodone 5 mg-acetaminophen 325 1 tab PO TID PRN tab 03/19/21 04/08/21 mg tablet levothyroxine 50 mcg tablet 50 mcg PO DAILY tab 04/08/21 04/08/21 Previous Rx's Medication
[2021-09-22 10:45] VITALS: BP 110/72; PULSE 69; RESP 19; TEMP 36.7; O2SAT 97
== END 2021-09-22 11:02 | disposition home or self-care (01) ==
PROVIDERS: Emergency Provider Nurse Practitioner
DX: J44.1 Chronic obstructive pulmonary disease with (acute) exacerbation (principal)
CPT/HCPCS: 99212; C9803; G0463; U0003; U0005

== ENCOUNTER → 2022-03-05 11:00 | Outpatient (CLI) | payer OTHER, SELFPAY ==
[2022-03-05 16:52] LABS: Basophils # 0.1 K/mm3 (0-0.2); Basophils % 1.3 % (0.1-2.0); Eosinophils # 0.2 K/mm3 (0.0-0.4); Eosinophils % 2.7 % (0.1-12.0); Hematocrit 48.9 % (37.0-47.0); Hemoglobin 16.3 g/dL (12.2-16.2); Mean Corpuscular HGB Conc 33.3 g/dL (31.8-35.4); Mean Corpuscular Hemoglobin 31.3 pg (27.0-31.2); Mean Corpuscular Volume 93.8 fl (81-99); Mean Platelet Volume 9.3 fl (7.4-10.4); Monocytes # 0.3 K/mm3 (0.1-1.0); Monocytes % 3.7 % (1.7-9.3); Neutrophils # 4.7 K/mm3 (1.8-7.8); Neutrophils % 56.3 % (37.0-80.0); Platelet Count 318 K/mm3 (142-424); Red Blood Count 5.22 M/mm3 (4.20-5.40); Red Cell Distribution Width 14.7 % (11.5-17.5); White Blood Count 8.3 K/mm3 (4.8-10.8)
[2022-03-05 17:00] LABS: Alanine Aminotransferase 24 U/L (12-78); Albumin Level 3.6 g/dl (3.5-5.0); Albumin/Globulin Ratio 1.3 (1.1-1.8); Alkaline Phosphatase 114 U/L (38-126); Anion Gap 8.4 mEq/L (5-15); Aspartate Amino Transferase 25 U/L (14-36); Bilirubin,Total 0.7 mg/dl (0.2-1.3); Blood Urea Nitrogen 11 mg/dl (7-17); Calcium 8.2 mg/dl (8.4-10.2); Carbon Dioxide 30 mmol/L (22.0-30.0); Chloride 103 mmol/L (98-107); Chol/HDL Ratio 5.6 (1-3.5); Cholesterol 191 mg/dl (140-200); Estimated Glomerular Filt Rate 107 ml/min (>60); GFR (African American) 130 ML/MIN (>60); Globulin 2.8 g/dL (1.3-3.2); Glucose 94 mg/dl (74-100); HDL Cholesterol 34 mg/dl (40-60); Potassium 4.4 mmoL/L (3.5-5.1); Sodium 137 mmol/L (136-145); Total Protein,Serum 6.4 g/dl (6.3-8.2); Triglycerides 195 mg/dl (30-150); VLDL Cholesterol 39 mg/dL (0-40)
[2022-03-05 17:11] LABS: Direct LDL Cholesterol 125.84 mg/dL (100-129)
[2022-03-05 17:17] LABS: Free Thyroxine Index 2.6 ug/dL (5.93-13.13); T4 (Thyroxine) 8.8 ug/dl (5.53-11.0); Triiodothryronine (T3) Uptake 29 % (23.5-40.5)
[2022-03-05 17:31] LABS: Thyroid Stimulating Hormone 7.99 uIU/mL (0.465-4.68)
== END ==
PROVIDERS: PCP Nurse Practitioner Family; Visit Provider Nurse Practitioner Family
DX: I10 Essential (primary) hypertension (principal); R53.83 Other fatigue; E78.5 Hyperlipidemia, unspecified
CPT/HCPCS: 80053; 80061; 84436; 84443; 84479; 85025

== ENCOUNTER → 2022-04-06 14:18 | Outpatient (CLI) | payer OTHER, SELFPAY ==
--- NOTE | 2022-04-06 14:18 | MM_ITS ---
PROCEDURE INFORMATION: Exam: MG Bilateral Screening 3D Mammography Exam date and time: 04/06/2022 2:18 PM Age: 47 years old Clinical indication: Screening examination. Her maternal great grandmother had breast cancer. TECHNIQUE: Imaging protocol: Bilateral Screening tomosynthesis and 2D mammography including computer-aided detection (CAD) when performed. COMPARISON: 1. MG DMSB DIG MAMM-SCREEN MARCEL W/CAD 12/24/2016 4:05 PM 2. MG DMSB DIG MAMM-SCREEN MARCEL 12/03/2015 9:33 AM FINDINGS: MAMMOGRAPHY: Breast composition: The breasts are almost entirely fatty. Mass: None. Architectural distortion: None. Calcifications: No suspicious calcifications. Asymmetric density: None. Skin thickening: None. Axillary adenopathy: None. IMPRESSION: No mammographic evidence of malignancy. Annual screening is recommended unless otherwise clinically indicated. ASSESSMENT: BI-RADS Category 1: Negative
== END ==
PROVIDERS: PCP Nurse Practitioner Family; Visit Provider Nurse Practitioner Family
DX: Z12.31 Encounter for screening mammogram for malignant neoplasm of breast (principal)
CPT/HCPCS: 77063; 77067

== ENCOUNTER → 2022-04-14 13:17 | Outpatient (CLI) | payer OTHER, SELFPAY | PROVIDERS: PCP Nurse Practitioner Family; Visit Provider Physician Assistant | DX: R06.02 Shortness of breath (principal) | CPT/HCPCS: 93306 ==

== ENCOUNTER 2022-06-20 19:01 | Observation (INO) | payer OTHER, SELFPAY ==
[2022-06-20] VITALS (11 sets, daily range): BP systolic 137–149; BP diastolic 72–103; PULSE 79–97; RESP 18–22; TEMP 36.7–37.1; O2SAT 87–94; BMI 57.2; BMI 57.9
--- NOTE | 2022-06-20 19:18 | XR_ITS ---
PROCEDURE INFORMATION: Exam: XR Chest Exam date and time: 06/20/2022 7:28 PM Age: 47 years old Clinical indication: Shortness of breath; Additional info: Concern for pneumonia TECHNIQUE: Imaging protocol: Radiologic exam of the chest. Views: 2 views. COMPARISON: CR XR CHEST 2V 06/22/2021 7:48 PM FINDINGS: Lungs: The lungs are adequately inflated. No focal consolidation. Pleural spaces: No pneumothorax or pleural effusion. Heart/Mediastinum: The cardiomediastinal silhouette has normal size and contour. Bones/joints: No displaced fracture. Intraperitoneal space: The visualized abdomen is unremarkable. IMPRESSION: No acute cardiopulmonary disease.
--- NOTE | 2022-06-20 19:31 | HMH.EDGENADL ---
Discharge Plan Disposition Patient Disposition: Admitted As Inpatient Condition: Fair Prescriptions Prescriptions: No Action gabapentin 800 mg tablet 800 mg PO TID MDD PAIN tramadol 50 mg tablet 50 mg PO TID hydrocodone-acetaminophen [[place]] 5-325 mg tablet 1 tab PO TID PRN (Reason: PAIN) aspirin [Adult Low Dose Aspirin] 81 mg tablet,delayed release (DR/EC) 81 mg PO DAILY spironolactone [Aldactone] 100 mg tablet 100 mg PO DAILY Qty: 30 5RF albuterol sulfate 90 mcg/actuation HFA aerosol inhaler 2 puff IH Q6HP PRN (Reason: Shortness Of Breath) 30 Days Qty: 1 5RF triamcinolone acetonide [Nasacort Allergy] 55 mcg aerosol,spray 2 spray intranasal DAILY Rx Instructions: administer into each nostril ergocalciferol (vitamin D2) [Vitamin D2] 1,250 mcg (50,000 unit) capsule 1,250 mcg PO WEEKLY epinephrine [EpiPen] 0.3 mg/0.3 mL auto-injector 0.3 mg IM Q5-15M PRN Rx Instructions: do not exceed 3 doses per episode Zyrtec 10 mg capsule 10 mg PO DAILY PRN Breztri Aerosphere 160-9-4.8 mcg/actuation HFA aerosol inhaler 2 inh inhalation BID montelukast 10 mg tablet 10 mg PO DAILY azelastine 137 mcg (0.1 %) aerosol,spray 2 spray intranasal BID nystatin-triamcinolone 100,000-0.1 unit/gram-% ointment 1 applic topical BID Qty: 60 0RF Rx Instructions: apply under breasts and skin folds levothyroxine 25 mcg capsule 25 mcg PO DAILY Qty: 30 1RF atorvastatin 20 mg tablet 20 mg PO DAILY Qty: 30 5RF bisoprolol fumarate 10 mg tablet 10 mg PO DAILY Qty: 30 5RF furosemide [Lasix] 40 mg tablet 40 mg PO .M, W, F Qty: 15 2RF losartan 100 mg tablet 100 mg PO DAILY Qty: 30 5RF omeprazole 40 mg capsule,delayed release(DR/EC) 40 mg PO QDAY Qty: 30 5RF Rx Instructions: swallow whole; do not crush, chew, dissolve, or cut/break hydrocortisone 2.5 % cream 1 applic topical BID Qty: 30 2RF Referrals Follow up/Referrals: Marlo López MD [Primary Care Provider] - See instructions Clinical Impressions Clinical Impression: COPD exacerbation Discharge ED Provider: Mike [facility] HPI General Chief complaint: Shortness of Breath/Dyspnea Stated complaint: SOA Time Seen by Provider: 06/20/22 19:15 History of Present Illness HPI narrative: Patient is a 47-year-old female with past medical history of COPD, pulmonary hypertension, peripheral artery disease, hyperlipidemia, hypertension who presents with concern for shortness of breath. She states that other family members in her house have recently been sick with a viral illness. She states that she started to get sick a few days ago but notes that she started the cough up quite a bit of sputum. She has been having fever and chills. Increased cough. Has been having some chest pain with coughing. No pain with deep inspiration. Denies any abdominal pain. Related Data Home Medications Medication Instructions Recorded Confirmed gabapentin 800 mg tablet 800 mg PO TID Pain 11/01/17 06/16/22 tramadol 50 mg tablet 50 mg PO TID Pain 11/01/17 06/16/22 aspirin 81 mg tablet,delayed 81 mg PO DAILY 09/05/19 06/16/22 release (Adult Low Dose Aspirin) hydrocodone 5 mg-acetaminophen 325 1 tab PO TID PRN PAIN 03/19/21 06/16/22 mg tablet ([place]) budesonide 160 mcg-glycopyr 9 2 inh inhalation BID 03/30/22 06/16/22 mcg-formot 4.8 mcg/actuation HFA inhaler (Breztri Aerosphere) cetirizine 10 mg capsule (Zyrtec) 10 mg PO DAILY PRN 03/30/22 06/16/22 epinephrine 0.3 mg/0.3 mL 0.3 mg IM Q5-15M PRN 03/30/22 06/16/22 injection, auto-injector (EpiPen) ergocalciferol (vitamin D2) 1,250 1,250 mcg PO WEEKLY 03/30/22 06/16/22 mcg (50,000 unit) capsule (Vitamin D2) triamcinolone acetonide 55 mcg 2 spray intranasal DAILY 03/30/22 06/16/22 nasal spray aerosol (Nasacort Allergy) azelastine 137 mcg (0.1 %) nasal 2 spray intranasal BID 0
--- NOTE | 2022-06-20 19:33 | PC.NURSE ---
Notified lab that RT would need a green top for a VBG
--- NOTE | 2022-06-20 19:34 | PC.NURSE ---
Notified RT of breathing treatment and VBG order
[2022-06-20 19:38] LABS: Coronavirus 19, PCR Not Detected (NotDetected); Influenza A, PCR Not Detected (NotDetected); Influenza B, PCR Not Detected (NotDetected)
[2022-06-20 19:40] LABS: VBG Base Excess 4.3 mmol/L (-2.4-2.3); VBG HCO3 30.6 mmol/L (23-30); VBG Oxygen Saturation 79.9 % (50-70); VBG PH 7.31 mmol/L (7.31-7.41); VBG PO2 46.7 mmol/L (28-40); VBG Total CO2 32.5 mmol/L (23-27)
[2022-06-20 19:41] LABS: VBG PCO2 61.8 mmol/L (35-51)
[2022-06-20 19:52] LABS: Basophils # 0.1 K/mm3 (0-0.2); Basophils % 0.4 % (0.1-2.0); Eosinophils # 0.4 K/mm3 (0.0-0.4); Eosinophils % 3.8 % (0.1-12.0); Hematocrit 46.9 % (37.0-47.0); Hemoglobin 15.5 g/dL (12.2-16.2); Lymphocytes # 3.6 K/mm3 (0.7-4.5); Lymphocytes % 32.2 % (10-50); Mean Corpuscular HGB Conc 33.1 g/dL (31.8-35.4); Mean Corpuscular Hemoglobin 30.7 pg (27.0-31.2); Mean Corpuscular Volume 92.7 fl (81-99); Monocytes # 0.5 K/mm3 (0.1-1.0); Monocytes % 4.1 % (1.7-9.3); Neutrophils # 6.6 K/mm3 (1.8-7.8); Neutrophils % 59.6 % (37.0-80.0); Platelet Count 239 K/mm3 (142-424); Red Blood Count 5.05 M/mm3 (4.20-5.40); Red Cell Distribution Width 14.6 % (11.5-17.5); White Blood Count 11.1 K/mm3 (4.8-10.8)
--- NOTE | 2022-06-20 20:00 | PC.NURSE ---
Sputum was collected on pt. Dr. Mckeon did not want an order at this time.
[2022-06-20 20:07] LABS: Alanine Aminotransferase 28 U/L (12-78); Albumin Level 3.7 g/dl (3.5-5.0); Albumin/Globulin Ratio 1.1 (1.1-1.8); Alkaline Phosphatase 116 U/L (38-126); Anion Gap 12.6 mEq/L (5-15); Aspartate Amino Transferase 31 U/L (14-36); Bilirubin,Total 0.8 mg/dl (0.2-1.3); Blood Urea Nitrogen 12 mg/dl (7-17); Calcium 8.5 mg/dl (8.4-10.2); Carbon Dioxide 35 mmol/L (22.0-30.0); Chloride 97 mmol/L (98-107); Creatinine Clearance Estimated 113 mL/min (50-200); Estimated Glomerular Filt Rate 107 ml/min (>60); GFR (African American) 130 ML/MIN (>60); Globulin 3.4 g/dL (1.3-3.2); Glucose 72 mg/dl (74-100); Potassium 3.6 mmoL/L (3.5-5.1); Sodium 141 mmol/L (136-145); Total Protein,Serum 7.1 g/dl (6.3-8.2)
[2022-06-20 20:18] LABS: NT Pro Brain Natriuretic Pep. 125 pg/mL (0-125)
--- NOTE | 2022-06-20 20:18 | ECG_ITS ---
APPROVED REPORT Exam: Resting ECG HR:92 bpm ECG Measurements Heart Rate 92 AXES NH 157 P 62 QRSd 113 QRS 28 QT 367 T 41 QTc 417 Conclusion SINUS RHYTHM WITH OCCASIONAL VENTRICULAR PREMATURE COMPLEXES MODERATE INTRAVENTRICULAR CONDUCTION DELAY [110+ ms QRS DURATION] BORDERLINE ECG UNCONFIRMED REPORT Electronically signed by : Tc Israel MD 06/21/2022 21:16:25
[2022-06-20 20:26] LABS: Procalcitonin 0.054 ng/mL (0.0-2.0)
--- NOTE | 2022-06-20 20:27 | PC.NURSE ---
pt room air challange 95 o2
--- NOTE | 2022-06-20 20:49 | PC.NURSE ---
Pt O2: 85. MD notified.
--- NOTE | 2022-06-20 20:51 | PC.NURSE ---
Dr. Gibson at [facility]
--- NOTE | 2022-06-20 20:58 | PC.NURSE ---
Notified House of pt admission
--- NOTE | 2022-06-20 21:00 | PC.NURSE ---
PATIENT ADMITTED OBSERVATION TO 200 WITH ACUTE HYPOXIC RESP FAILURE TO SERVICE OF DR. AHN.
--- NOTE | 2022-06-20 21:12 | EXP.HP ---
History of Present Illness *Admission Date: 06/20/22 *Reason for visit:: Dyspnea *History of present illness: This is a 47-year-old female that presents to [facility] emergency department with concerns of shortness of air. Her past medical history is significant for Heart failure with preserved ejection fraction, pulmonary hypertension, BMI 57, OHS, CAPRI, peripheral vascular disease and tobacco dependence. She describes approximately 1 week of nasal congestion with associated postnasal drip with identified sick contacts at home. Several family members have upper respiratory infections. She reports an increased cough over the past few days that has crescendoed. She describes some sputum production but no associated hemoptysis. She started to experience some shortness of air at rest. She denies associated chest pain, palpitations, syncope or confusion. In the ED her room air pulse ox is diminished and improved with oxygen supplementation. Her chest x-ray identifies no acute disease. Her VBG identifies CO2 retention. [facility] Medical History (Updated 06/20/22 @ 21:19 by Michele Urban MD) Heart failure with preserved ejection fraction HTN (hypertension) Morbid obesity with BMI of 50.0-59.9, adult Obesity hypoventilation syndrome PAD (peripheral artery disease) Pulmonary HTN Tobacco dependence Surgical History H/O hernia repair H/O tubal ligation History of ankle surgery History of History of endometrial ablation Hx of cardiac cath Family History Father Cancer Coronary artery disease Hypertension Thyroid disorder Diabetes Mother Coronary artery disease Hypertension Thyroid disorder Diabetes Grandmother Diabetes Social History Smoking Status: Current some day smoker tobacco type: cigarettes packs per day: 27 second hand exposure: No alcohol intake: never substance use type: denies use current occupational status: other Travel in the last 8 weeks: None household members: spouse and children housing: house current occupational exposures/hazards: No caffeine: Yes Review of Systems Review of Systems Review of systems:: pertinent systems reviewed and negative unless documented below Constitutional Constitutional: Reports chills and Denies fever(s) ENT Ears, Nose, Mouth, and Throat: Reports nasal congestion *Cardiovascular Cardiovascular: Denies chest pain, Denies chest pain at rest, Reports dyspnea, Reports dyspnea on exertion and Denies palpitations *Respiratory Respiratory: Reports change in phlegm color, Reports cough, Reports dyspnea, Reports dyspnea on exertion and Denies hemoptysis *Gastrointestinal Gastrointestinal: Denies hematemesis, Denies loose stools, Reports nausea and Denies vomiting *Genitourinary Genitourinary: Denies dysuria *Musculoskeletal Musculoskeletal: Reports myalgias Endocrine Endocrine: Denies palpitations Meds Home Medications and Allergies Home Medications Medication Instructions Recorded Confirmed Type gabapentin 800 mg tablet 800 mg PO TID Pain 11/01/17 06/16/22 History tramadol 50 mg tablet 50 mg PO TID Pain 11/01/17 06/16/22 History aspirin 81 mg tablet,delayed 81 mg PO DAILY 09/05/19 06/16/22 History release (Adult Low Dose Aspirin) hydrocodone 5 mg-acetaminophen 325 1 tab PO TID PRN PAIN 03/19/21 06/16/22 History mg tablet ([place]) spironolactone 100 mg tablet 100 mg PO DAILY #30 tabs 10/08/21 06/16/22 Rx (Aldactone) albuterol sulfate 90 mcg/actuation 2 puff inhalation Q6HP PRN 01/26/22 06/16/22 Rx aerosol inhaler Shortness Of Breath 30 days #1 ea levothyroxine 25 mcg capsule 25 mcg PO DAILY #30 caps 03/11/22 06/16/22 Rx budesonide 160 mcg-glycopyr 9 2 inh inhalation BID 03/30/22 06/16/22 History mcg-formot 4.8 mcg/actuation HFA inhaler ([employer])
[2022-06-20 21:23] LABS: POC Glucose,Bedside 124 (70-110)
--- NOTE | 2022-06-20 21:38 | PC.NURSE ---
report called to Felix ALBA
--- NOTE | 2022-06-20 21:56 | PC.NURSE ---
Pt asking for time frame on being taken to 2nd floor. Checked with Med/Surg and they are moving beds and will be down shortly.
--- NOTE | 2022-06-20 22:08 | PC.NURSE ---
PT ARRIVED TO [facility] AT THIS TIME.
[2022-06-20 22:09] LABS: Hemoglobin A1C 5.6 % (4.0-6.0)
[2022-06-21] VITALS (10 sets, daily range): BP systolic 105–154; BP diastolic 40–114; PULSE 57–95; RESP 18–20; TEMP 36.4–36.9; O2SAT 92–98; BMI 57.9; BMI 57.7
--- NOTE | 2022-06-21 04:13 | PC.NURSE ---
Pt is aox 4, 93% on 02-3L NC, up adlib, 18g R AC SL, no changes noted over night.
--- NOTE | 2022-06-21 04:17 | PC.NURSE ---
RT called about . order for BIPAP at .
[2022-06-21 08:11] LABS: Basophils % 0.2 % (0.1-2.0); Eosinophils # 0.2 K/mm3 (0.0-0.4); Eosinophils % 1.3 % (0.1-12.0); Hematocrit 49.9 % (37.0-47.0); Hemoglobin 16.2 g/dL (12.2-16.2); Lymphocytes # 1.1 K/mm3 (0.7-4.5); Lymphocytes % 9.2 % (10-50); Mean Corpuscular HGB Conc 32.5 g/dL (31.8-35.4); Mean Corpuscular Hemoglobin 30.3 pg (27.0-31.2); Mean Corpuscular Volume 93.4 fl (81-99); Mean Platelet Volume 7.8 fl (7.4-10.4); Monocytes # 0.1 K/mm3 (0.1-1.0); Monocytes % 0.8 % (1.7-9.3); Neutrophils # 10.8 K/mm3 (1.8-7.8); Neutrophils % 88.6 % (37.0-80.0); Platelet Count 205 K/mm3 (142-424); Red Blood Count 5.35 M/mm3 (4.20-5.40); Red Cell Distribution Width 14.4 % (11.5-17.5); White Blood Count 12.1 K/mm3 (4.8-10.8)
[2022-06-21 08:16] LABS: MANUAL DIFFERENTIAL MANUAL DIFFERENTIAL (MANUAL DIFF)
--- NOTE | 2022-06-21 08:44 | HMH.PHAINT1 ---
Pharmacy Intervention Comments: HOME MEDICATIONS VERIFIED BY LIST FROM OUTSIDE PHARMACY AND DISCUSSION WITH THE PATIENT.
[2022-06-21 08:47] LABS: Hemoglobin A1C 5.5 % (4.0-6.0)
[2022-06-21 08:50] LABS: Chloride 96 mmol/L (98-107); Potassium 3.8 mmoL/L (3.5-5.1); Sodium 137 mmol/L (136-145)
[2022-06-21 08:53] LABS: Anion Gap 19.8 mEq/L (5-15); Blood Urea Nitrogen 10 mg/dl (7-17); Calcium 8.9 mg/dl (8.4-10.2); Carbon Dioxide 25 mmol/L (22.0-30.0); Creatinine Clearance Estimated 130 mL/min (50-200); Estimated Glomerular Filt Rate 132 ml/min (>60); GFR (African American) 160 ML/MIN (>60); Glucose 262 mg/dl (74-100)
[2022-06-21 08:54] LABS: Magnesium 2.1 mg/dl (1.6-2.3)
[2022-06-21 09:17] LABS: Lymphocytes % 12 % (10-50); Monocytes % 1 % (2-9); Neutrophils % 87 % (42-76); Platelet Estimate Normal; RBC Morphology Normal; Total Cells Counted 100
--- NOTE | 2022-06-21 09:42 | EXP.PULM.CON ---
History of Present Illness History of present illness: Ms. Pierce is a 47-year-old female current smoker greater than [id number] smoking used to smoke 3 packs a day currently down to half pack a day, carries a prior diagnosis of asthma and COPD not having any significant respiratory complaints diagnosed with COVID-19 pneumonia in 2020 since then needing oxygen appointments as per the patient presented to the hospital with worsening respiratory distress. Home medications include Breztri inhaler along with albuterol on as-needed basis other significant medical history include eart failure preserved EF, obesity, CAPRI (Mild AHI 6) peripheral vascular disease and tobacco dependence. [facility] Disclaimer: The information contained in this section may have been updated after the patient was seen, as this information can be updated by other users. Medical History (Updated 06/20/22 @ 21:19 by Michele Urban MD) Heart failure with preserved ejection fraction HTN (hypertension) Morbid obesity with BMI of 50.0-59.9, adult Obesity hypoventilation syndrome PAD (peripheral artery disease) Pulmonary HTN Tobacco dependence Surgical History H/O hernia repair H/O tubal ligation History of ankle surgery History of History of endometrial ablation Hx of cardiac cath Family History Father Cancer Coronary artery disease Hypertension Thyroid disorder Diabetes Mother Coronary artery disease Hypertension Thyroid disorder Diabetes Grandmother Diabetes Social History (Updated 06/20/22 @ 23:30 by Jeff White RN) Smoking Status: Current some day smoker tobacco type: cigarettes packs per day: 27 second hand exposure: No alcohol intake: never substance use type: denies use current occupational status: other Travel in the last 8 weeks: None household members: spouse and children housing: house current occupational exposures/hazards: No caffeine: Yes Review of Systems Constitutional Constitutional: Reports anorexia, Reports body ache(s) and Reports fatigue Eyes Eyes: Denies eye discharge, Denies dry eyes, Denies irritation and Denies itchy eyes ENT Ears, Nose, Mouth, and Throat: Denies epistaxis, Denies facial pain, Denies lip swelling and Denies throat swelling *Cardiovascular Cardiovascular: Reports dyspnea, Reports dyspnea on exertion and Reports leg edema *Respiratory Respiratory: Reports chest congestion, Reports cough, Reports dyspnea, Reports dyspnea on exertion, Reports excessive phlegm production and Reports wheezing *Gastrointestinal Gastrointestinal: Denies abdominal pain, Denies belching and Denies cramping *Musculoskeletal Musculoskeletal: Reports back pain, Reports myalgias and Reports other (No small joint swelling or Pain) Psychiatric Psychiatric: Denies homicidal ideation and Denies suicidal ideation Endocrine Endocrine: Reports fatigue and Denies heat intolerance Hematologic/Lymphatic Hematologic/Lymphatic: Denies easy bleeding and Denies lymphadenopathy Allergic/Immunologic Allergic/Immunologic: Denies itchy eyes, Denies lip swelling, Denies throat swelling and Reports wheezing Pulmonology Exam Inpatient Vital signs and Labs for Last 24 Hours: Temp Pulse Resp BP Pulse Ox FiO2 98.4 F 95 H 18 154/114 H 96 28 06/21/22 07:17 06/21/22 07:17 06/21/22 07:17 06/21/22 07:17 06/21/22 07:17 06/20/22 23:17 Laboratory Results - last 24 hr 06/20/22 19:14: SARS-CoV-2 (PCR) Not detected, Influenza A Untype (PCR) Not detected, Influenza Type B (PCR) Not detected 06/20/22 19:18: VBG pH 7.31, VBG pCO2 61.8 H, VBG pO2 46.7 H, VBG HCO3 30.6 H, VBG Total CO2 32.5 H, VBG O2 Saturation 79.9 H, VBG Base Excess 4.3 H 06/20/22 19:28: WBC 11.1 H, RBC 5.05, Hgb 15.5, Hct 46.9, MCV 92.7, MCH 30.7, MCHC 33.1, RDW 14.6, Plt Count 239, MPV 8.0, Neut % (Auto) 59.6, Lymph % (Auto) 32.2, [place] %
[2022-06-21 11:40] LABS: ABG Base Excess -1.3 mmol/L (-2.4-2.3); ABG HCO3 23.9 mmhg (22.0-26.0); ABG Oxygen Saturation 94 % (90-100); ABG PCO2 41.4 mmhg (35.0-45.0); ABG PH 7.38 mmol/L (7.35-7.45); ABG PO2 71.5 mmhg (80-100); ABG TCO2 25.2 mmhg (23-27)
[2022-06-21 11:42] LABS: Allen's Test Acceptable; Source Right Radial
[2022-06-21 12:20] LABS: POC Glucose,Bedside 184 (70-110)
--- NOTE | 2022-06-21 13:35 | EXP.ACUTE.PN ---
Subjective *Date: 06/21/22 *Time: 17:10 Interval history: Patient states she feels better this morning. Afebrile overnight. Tolerating nasal cannula oxygen at 3 L. Satting in the mid 90s. Chart review shows echo from 04/29 with preserved ejection fraction and RVSP of 32. Medical Exam Vital signs and Labs for Last 24 Hours: Vital Signs Temp Pulse Pulse Resp BP BP Pulse Ox 06/21/22 11:39 62 06/21/22 11:39 59 L 06/21/22 10:48 97.5 F L 74 18 105/40 L 93 L 06/21/22 07:17 98.4 F 95 H 18 154/114 H 96 06/21/22 06:17 94 H 06/21/22 06:17 94 H 06/21/22 06:17 92 L 06/21/22 04:00 98.0 F 87 20 127/55 L 94 L 06/21/22 01:15 98 06/20/22 23:59 98.1 F 97 H 18 139/94 H 87 L 06/20/22 23:17 06/20/22 23:15 80 06/20/22 23:15 79 06/20/22 22:24 98.2 F 92 H 20 149/103 H 87 L 06/20/22 21:31 92 H 145/88 H 94 L 06/20/22 21:28 98.1 F 97 H 22 137/72 06/20/22 21:00 91 H 137/72 93 L 06/20/22 20:30 93 H 146/80 H 92 L 06/20/22 20:06 83 06/20/22 20:06 81 06/20/22 20:00 89 138/89 93 L 06/20/22 19:30 86 141/93 H 93 L 06/20/22 19:03 98.7 F 89 18 138/87 93 L FiO2 06/21/22 11:39 06/21/22 11:39 06/21/22 10:48 06/21/22 07:17 06/21/22 06:17 06/21/22 06:17 06/21/22 06:17 06/21/22 04:00 06/21/22 01:15 06/20/22 23:59 06/20/22 23:17 28 06/20/22 23:15 06/20/22 23:15 06/20/22 22:24 06/20/22 21:31 06/20/22 21:28 06/20/22 21:00 06/20/22 20:30 06/20/22 20:06 06/20/22 20:06 06/20/22 20:00 06/20/22 19:30 06/20/22 19:03 Intake and Output 06/20/22 06/21/22 06/21/22 23:59 07:59 15:59 Intake Total 360 / 915 555 / 915 Output Total 0 / 0 0 / 0 Balance 360 / 915 555 / 915 Intake: Intake, Oral Amount 360 / 915 555 / 915 Output: Output, Urine Amount 0 / 0 0 / 0 Other: Number of Unmeasured Voids 1 1 Weight 167.4 kg 167.4 kg 167 kg Patient Weight 06/21/22 23:59 Weight 167 kg Laboratory Results - last 24 hr 06/20/22 19:14: SARS-CoV-2 (PCR) Not detected, Influenza A Untype (PCR) Not detected, Influenza Type B (PCR) Not detected 06/20/22 19:18: VBG pH 7.31, VBG pCO2 61.8 H, VBG pO2 46.7 H, VBG HCO3 30.6 H, VBG Total CO2 32.5 H, VBG O2 Saturation 79.9 H, VBG Base Excess 4.3 H 06/20/22 19:28: WBC 11.1 H, RBC 5.05, Hgb 15.5, Hct 46.9, MCV 92.7, MCH 30.7, MCHC 33.1, RDW 14.6, Plt Count 239, MPV 8.0, Neut % (Auto) 59.6, Lymph % (Auto) 32.2, [place] % (Auto) 4.1, Eos % (Auto) 3.8, Baso % (Auto) 0.4, Neut # (Auto) 6.6, Lymph # (Auto) 3.6, [place] # (Auto) 0.5, Eos # (Auto) 0.4, Baso # (Auto) 0.1 06/20/22 19:28: Sodium 141, Potassium 3.6, Chloride 97 L, Carbon Dioxide 35 H, Anion Gap 12.6, BUN 12, Creatinine 0.60, Estimated Creat Clear 113, Estimated GFR 107, Est GFR ( Amer) 130, Glucose 72 L, Calcium 8.5, Total Bilirubin 0.8, AST 31, ALT 28, Alkaline Phosphatase 116, C-Reactive Protein 46.0 H, NT-Pro-B Natriuret Pep 125, Total Protein 7.1, Albumin 3.7, Globulin 3.4 H, Albumin/Globulin Ratio 1.1, Procalcitonin 0.054 06/20/22 19:28: Hemoglobin A1c 5.6 06/20/22 21:16: POC Glucose 124 H 06/21/22 07:58: WBC 12.1 H, RBC 5.35, Hgb 16.2, Hct 49.9 H, MCV 93.4, MCH 30.3, MCHC 32.5, RDW 14.4, Plt Count 205, MPV 7.8, Neut % (Auto) 88.6 H, Lymph % (Auto) 9.2 L, [place] % (Auto) 0.8 L, Eos % (Auto) 1.3, Baso % (Auto) 0.2, Neut # (Auto) 10.8 H, Lymph # (Auto) 1.1, [place] # (Auto) 0.1, Eos # (Auto) 0.2, Baso # (Auto) 0.0, Total Counted 100, Neutrophils % (Manual) 87 H, Lymphocytes % (Manual) 12, Monocytes % (Manual) 1 L, Platelet Estimate Normal, RBC Morphology Normal 06/21/22 07:58: Sodium 137, Potassium 3.8, Chloride 96 L, Carbon Dioxide 25, Anion Gap 19.8 H, BUN 10, Creatinine 0.50 L, Estimated Creat Clear 130, Estimated GFR 132, Est GFR ( Amer) 160 D, Glucose 262 H D, Calcium 8.9, Magnesium 2.1 06/21/22 07:58: Hemoglobin A1c 5.5 06/21/22 10:55
--- NOTE | 2022-06-21 16:01 | PC.NURSE ---
pt alert and oriented t/o shift. pt has been up to chair this shift and ambulates around room per self. pt did get up and take a shower today. family has visited. LS dimished t/o with left sided rhonci. abdomen soft, nontender, bs active. pt was seen today by Dr. Velez. pt has a nicotine patch to left arm.
[2022-06-21 16:37] LABS: POC Glucose,Bedside 120 (70-110)
[2022-06-21 20:41] LABS: POC Glucose,Bedside 317 (70-110)
--- NOTE | 2022-06-21 22:38 | PC.NURSE ---
Addendum entered by Jeff White RN 06/21/22 22:40: Arturo Cárdenas called and is aware. Original Note: pt's iv came out and she refused to have another one placed. explained the reasoning behind having the iv and the risks of not having one.
[2022-06-22] VITALS: BP 146/75; PULSE 70; RESP 19; TEMP 36.6; O2SAT 93
[2022-06-22 03:57] VITALS: BP 115/60; PULSE 90; RESP 20; TEMP 36.5; O2SAT 98; BMI 57.2
--- NOTE | 2022-06-22 04:00 | PC.NURSE ---
pt. had Tylenol for a headache and slept in her chair most of the night.
[2022-06-22 05:30] LABS: POC Glucose,Bedside 207 (70-110)
[2022-06-22 05:56] VITALS: PULSE 89; PULSE 93; O2SAT 98
[2022-06-22 06:55] LABS: Basophils % 0.2 % (0.1-2.0); Eosinophils # 0.1 K/mm3 (0.0-0.4); Eosinophils % 0.3 % (0.1-12.0); Hematocrit 44.9 % (37.0-47.0); Hemoglobin 14.7 g/dL (12.2-16.2); Lymphocytes # 3.4 K/mm3 (0.7-4.5); Lymphocytes % 18.9 % (10-50); Mean Corpuscular HGB Conc 32.8 g/dL (31.8-35.4); Mean Corpuscular Hemoglobin 30.6 pg (27.0-31.2); Mean Corpuscular Volume 93.3 fl (81-99); Mean Platelet Volume 8.2 fl (7.4-10.4); Monocytes # 0.7 K/mm3 (0.1-1.0); Monocytes % 3.7 % (1.7-9.3); Neutrophils % 76.9 % (37.0-80.0); Platelet Count 258 K/mm3 (142-424); Red Blood Count 4.81 M/mm3 (4.20-5.40); Red Cell Distribution Width 14.6 % (11.5-17.5); White Blood Count 18.2 K/mm3 (4.8-10.8)
[2022-06-22 07:00] LABS: MANUAL DIFFERENTIAL MANUAL DIFFERENTIAL (MANUAL DIFF)
[2022-06-22 07:04] LABS: Alanine Aminotransferase 25 U/L (12-78); Albumin Level 3.5 g/dl (3.5-5.0); Albumin/Globulin Ratio 1.2 (1.1-1.8); Alkaline Phosphatase 105 U/L (38-126); Anion Gap 12.9 mEq/L (5-15); Aspartate Amino Transferase 27 U/L (14-36); Bilirubin,Total 0.3 mg/dl (0.2-1.3); Blood Urea Nitrogen 16 mg/dl (7-17); Calcium 8.4 mg/dl (8.4-10.2); Carbon Dioxide 34 mmol/L (22.0-30.0); Chloride 97 mmol/L (98-107); Creatinine Clearance Estimated 93 mL/min (50-200); Estimated Glomerular Filt Rate 90 ml/min (>60); GFR (African American) 109 ML/MIN (>60); Glucose 121 mg/dl (74-100); Magnesium 2.2 mg/dl (1.6-2.3); Potassium 3.9 mmoL/L (3.5-5.1); Sodium 140 mmol/L (136-145); Total Protein,Serum 6.5 g/dl (6.3-8.2)
[2022-06-22 07:07] VITALS: BP 137/68; PULSE 70; RESP 17; TEMP 36.9; O2SAT 96
[2022-06-22 07:36] LABS: Lymphocytes % 21 % (10-50); Monocytes % 3 % (2-9); Neutrophils % 76 % (42-76); Total Cells Counted 100
[2022-06-22 07:37] LABS: Platelet Estimate Normal; RBC Morphology Normal
--- NOTE | 2022-06-22 09:12 | EXP.DC.SUM ---
General Admission date:: 06/20/22 Discharge date: 06/22/22 HPI HPI HPI: This is a 47-year-old female that presents to [facility] emergency department with concerns of shortness of air. Her past medical history is significant for Heart failure with preserved ejection fraction, pulmonary hypertension, BMI 57, OHS, CAPRI, peripheral vascular disease and tobacco dependence. She describes approximately 1 week of nasal congestion with associated postnasal drip with identified sick contacts at home. Several family members have upper respiratory infections. She reports an increased cough over the past few days that has crescendoed. She describes some sputum production but no associated hemoptysis. She started to experience some shortness of air at rest. She denies associated chest pain, palpitations, syncope or confusion. In the ED her room air pulse ox is diminished and improved with oxygen supplementation. Her chest x-ray identifies no acute disease. Her VBG identifies CO2 retention. Hospital Course Hospital Course Hospital Course: 47-year-old female who presents to the emergency department with dyspnea.? She has been assessed with OHS/CAPRI but does not use NIPPV therapy at home.? She identified sick contacts and now is experiencing cough and dyspnea.? Problems addressed as follows: Acute respiratory failure with hypoxia and hypercapnia OHS/CAPRI - Pulmonology consulted, appreciate their recommendations. Patient treated with DuoNebs, budesonide, started on antibiotics with levofloxacin. Has done well during admission. Initially on supplemental oxygen, weaned to 3 L yesterday. Has weaned off of supplemental oxygen by this morning. Saturations mid 90s on room air even with exertion. No oxygen requirement at discharge. Plan to continue antibiotics with levofloxacin x5 days. Medically stable for discharge home. Will have follow-up with pulmonology for further management and work-up including PFTs, 6-minute walk test, and possible sleep study. Acute on chronic HFpEF April 2022 echo reviewed with EF 55% and RVSP of 32, improved from echo in 2020. Continued home Lasix 40 mg daily and spironolactone daily. Continued home bisoprolol and resume valsartan at discharge. Tobacco dependence Tobacco cessation education. Nicotine replacement therapy Hypothyroidism Continue home levothyroxine 25 mcg daily Stable for discharge home. Close follow-up with pulmonology. Further work-up as an outpatient Exam Data for Last 24 hours Vital signs and Labs for Last 24 Hours: Temp Pulse Resp BP Pulse Ox FiO2 98.4 F 70 17 137/68 96 28 06/22/22 07:07 06/22/22 07:07 06/22/22 07:07 06/22/22 07:07 06/22/22 07:07 06/20/22 23:17 Laboratory Results - last 24 hr 06/21/22 07:58: Total Counted 100, Neutrophils % (Manual) 87 H, Lymphocytes % (Manual) 12, Monocytes % (Manual) 1 L, Platelet Estimate Normal, RBC Morphology Normal 06/21/22 10:55: Specimen Source Right radial, O2 % 3l nc, ABG pH 7.38, ABG pCO2 41.4, ABG pO2 71.5 L, ABG HCO3 23.9, ABG Total CO2 25.2, ABG O2 Saturation 94, ABG Base Excess -1.3, Dilshad Test Acceptable 06/21/22 11:40: POC Glucose 184 H 06/21/22 16:29: POC Glucose 120 H 06/21/22 20:34: POC Glucose 317 H* 06/22/22 05:22: POC Glucose 207 H 06/22/22 06:03: WBC 18.2 H D, RBC 4.81, Hgb 14.7, Hct 44.9, MCV 93.3, MCH 30.6, MCHC 32.8, RDW 14.6, Plt Count 258 D, MPV 8.2, Neut % (Auto) 76.9, Lymph % (Auto) 18.9, [place] % (Auto) 3.7, Eos % (Auto) 0.3, Baso % (Auto) 0.2, Neut # (Auto) 14.0 H, Lymph # (Auto) 3.4, [place] # (Auto) 0.7, Eos # (Auto) 0.1, Baso # (Auto) 0.0, Total Counted 100, Neutrophils % (Manual) 76, Lymphocytes % (Manual) 21, Monocytes % (Manual) 3, Platelet Estimate Normal, RBC Morphology Normal 06/22/22 06:03: Sodium 140, Potassium 3.9, Chloride 97 L, Carbon Dioxide 34 H, Anion Gap 12.9, BUN 16 D, Creatinine 0.70 D, Estimated Creat Clear 93, Estimated GFR 90, Est GFR ( Amer) 109 D, Glucose 121 H D, Calcium
--- NOTE | 2022-06-22 09:46 | PC.NURSE ---
pt on RA at 0915 stating 98-99%. at 0945 pt on RA stating 94% after ambulation
--- NOTE | 2022-06-22 09:49 | DIET.NUTRFU ---
RD reviewed and provided multiple handouts on weight loss, low carb high protein diet with desire to loose weight
--- NOTE | 2022-06-22 09:59 | EXP.PULM.PN ---
Subjective *Date: 06/22/22 *Time: 10:43 Interval history: No acute respiratory vents overnight. Patient admits continued improvement in her respiratory symptoms Pulmonology Exam Inpatient Vital signs and Labs for Last 24 Hours: Temp Pulse Resp BP Pulse Ox FiO2 98.4 F 70 17 137/68 96 28 06/22/22 07:07 06/22/22 07:07 06/22/22 07:07 06/22/22 07:07 06/22/22 07:07 06/20/22 23:17 Laboratory Results - last 24 hr 06/21/22 10:55: Specimen Source Right radial, O2 % 3l nc, ABG pH 7.38, ABG pCO2 41.4, ABG pO2 71.5 L, ABG HCO3 23.9, ABG Total CO2 25.2, ABG O2 Saturation 94, ABG Base Excess -1.3, Dilshad Test Acceptable 06/21/22 11:40: POC Glucose 184 H 06/21/22 16:29: POC Glucose 120 H 06/21/22 20:34: POC Glucose 317 H* 06/22/22 05:22: POC Glucose 207 H 06/22/22 06:03: WBC 18.2 H D, RBC 4.81, Hgb 14.7, Hct 44.9, MCV 93.3, MCH 30.6, MCHC 32.8, RDW 14.6, Plt Count 258 D, MPV 8.2, Neut % (Auto) 76.9, Lymph % (Auto) 18.9, [place] % (Auto) 3.7, Eos % (Auto) 0.3, Baso % (Auto) 0.2, Neut # (Auto) 14.0 H, Lymph # (Auto) 3.4, [place] # (Auto) 0.7, Eos # (Auto) 0.1, Baso # (Auto) 0.0, Total Counted 100, Neutrophils % (Manual) 76, Lymphocytes % (Manual) 21, Monocytes % (Manual) 3, Platelet Estimate Normal, RBC Morphology Normal 06/22/22 06:03: Sodium 140, Potassium 3.9, Chloride 97 L, Carbon Dioxide 34 H, Anion Gap 12.9, BUN 16 D, Creatinine 0.70 D, Estimated Creat Clear 93, Estimated GFR 90, Est GFR ( Amer) 109 D, Glucose 121 H D, Calcium 8.4, Magnesium 2.2, Total Bilirubin 0.3, AST 27, ALT 25, Alkaline Phosphatase 105, Total Protein 6.5, Albumin 3.5, Globulin 3.0, Albumin/Globulin Ratio 1.2 I & O for Labs for Last 24 Hours: Intake & Output 06/19/22 06/20/22 06/21/22 06/22/22 23:59 23:59 23:59 23:59 Intake Total 1395 / 1395 240 / 240 Output Total 0 / 0 0 / 0 Balance 1395 / 1395 240 / 240 Weight 369 lb 0.861 oz 368 lb 2.751 oz 365 lb Constitutional: Present no acute distress Head: Present normocephalic and atraumatic ENT: Present normal exam, normal oropharynx and mucous membranes moist Neck: Present normal inspection and full ROM Respiratory: Present respiratory distress, wheezes, crackles and able to speak in complete sentences Cardiac: Present S1/S2, Tachycardia and radial pulses present GI: Present soft and distention; Absent tenderness or guarding Rectal (female): Present deferred (female): Present deferred Skin: Present intact; Absent cyanosis or jaundice Neuro: Present alert, awake and oriented x 3 Extremities: Present normal inspection and edema; Absent clubbing or cyanosis Psychiatric: Present normal affect and cooperative Assessment and Plan *Assessment and plan (1) Acute respiratory failure with hypoxia and hypercapnia: Status: Acute Category: Medical Code(s): J96.01 - Acute respiratory failure with hypoxia; J96.02 - Acute respiratory failure with hypercapnia Plan Ms. Pierce is a 47-year-old female current smoker greater than [id number] smoking used to smoke 3 packs a day currently down to half pack a day, carries a prior diagnosis of asthma and COPD not having any significant respiratory complaints diagnosed with COVID-19 pneumonia in 2020 since then needing oxygen appointments as per the patient presented to the hospital with worsening respiratory distress. She also carries a personal history and family history of asthma. Home medications include Breztri inhaler along with albuterol on as-needed basis other significant medical history include eart failure preserved EF, obesity, CAPRI (Mild AHI 6) peripheral vascular disease and tobacco dependence. Echo from April 2022 estimated RVSP of 32. Polysomnography July 2019 AHI 6 Mild leukocytosis upon admission, neutrophilic predominant. ABG on admission showed mild hypercarbic respiratory failure. No evidence of hypoxia noted. COVID-19 and flu PCR negative Chest x-ray reviewed, no acute airspace disease dense consolidation noted. Bronchial thickenin
--- NOTE | 2022-06-22 10:05 | HMH.PHAINT1 ---
Pharmacy Intervention Comments: DISCHARGE MEDICATION COUNSELING COMPLETED. PATIENT WAS INSTRUCTED TO START THE FOLLOWING NEW MEDICATIONS: -LEVOFLOXACIN: TAKE ONCE DAILY. POSSIBLE SIDE EFFECTS OF NAUSEA OR DIARRHEA. INSTRUCTED PATIENT TO TAKE WITH FOOD IF THIS OCCURS. -NICOTINE PATCH: PLACE ONE PATCH DAILY. POSSIBLE SIDE EFFECTS OF SKIN IRRITATION OR SLEEP DISTURBANCES OR NIGHTMARES. INSTRUCTED PATIENT TO REMOVE THE PATCH EACH NIGHT BEFORE BEDTIME IF THIS OCCURS AND TO ROTATE SITES OF APPLICATION FROM DAY TO DAY.
--- NOTE | 2022-06-23 12:45 | CARE MANAGER ---
Spoke with patient related to hospital discharge. She is aware of medication changes and additions. She is aware of her follow up appointments and denies questions or concerns. ANJALI Chu
== END 2022-06-22 11:20 | disposition home or self-care (01) ==
LOC: ER 20:56 → 2ND 21:37
PROVIDERS: Internal Medicine Adolescent Medicine; Internal Medicine Pulmonary Disease; Admitting Provider Family Medicine; Emergency Provider Student in an Organized Health Care Education/Training Program; PCP Family Medicine; Visit Provider Family Medicine
DX: J96.01 Acute respiratory failure with hypoxia (principal); F17.210 Nicotine dependence, cigarettes, uncomplicated; J96.02 Acute respiratory failure with hypercapnia; I50.33 Acute on chronic diastolic (congestive) heart failure; E66.2 Morbid (severe) obesity with alveolar hypoventilation; Z68.43 Body mass index [BMI] 50.0-59.9, adult; J44.1 Chronic obstructive pulmonary disease with (acute) exacerbation; I11.0 Hypertensive heart disease with heart failure; I27.20 Pulmonary hypertension, unspecified
CPT/HCPCS: 36415; 71046; 80048; 80053; 82803; 82962; 83036; 83735; 83880; 84145; 85007; 85025; 86140; 87070; 87205; 87635; 87636; 93005; 94640; 94760; 94761; 99285; C9803; G0378; J3475; U0003; U0005

== ENCOUNTER → 2022-07-07 23:30 | Outpatient (CLI) | payer OTHER, SELFPAY ==
[2022-07-07 17:48] LABS: Thyroid Stimulating Hormone 3.01 uIU/mL (0.465-4.68)
== END ==
PROVIDERS: PCP Family Medicine; Visit Provider Family Medicine
DX: E03.9 Hypothyroidism, unspecified (principal)
CPT/HCPCS: 84443

== ENCOUNTER → 2022-07-19 09:46 | Outpatient (CLI) | payer OTHER, SELFPAY ==
[2022-07-19 10:35] VITALS: PULSE 83; PULSE 84
--- NOTE | 2022-07-19 13:48 | RESP.PFTSS ---
PATIENT REFUSED SIX MINUTE WALK. SHE STATES THAT HER KNEES AND HER ANKLE HURT TOO BAD AND SHE WOULD BE UNABLE TO WALK.
== END ==
PROVIDERS: PCP Family Medicine; Visit Provider Internal Medicine Pulmonary Disease
DX: J44.1 Chronic obstructive pulmonary disease with (acute) exacerbation (principal)
CPT/HCPCS: 94060; 94640; 94727; 94729

== ENCOUNTER 2023-02-28 09:37 | Outpatient (CLI) | payer OTHER, SELFPAY ==
[2023-02-28 10:22] LABS: Basophils # 0.1 K/mm3 (0-0.2); Eosinophils # 0.2 K/mm3 (0.0-0.4); Eosinophils % 2.8 % (0.1-12.0); Hematocrit 51.7 % (37.0-47.0); Hemoglobin 17.4 g/dL (12.2-16.2); Lymphocytes # 2.3 K/mm3 (0.7-4.5); Lymphocytes % 29.8 % (10-50); Mean Corpuscular HGB Conc 33.7 g/dL (31.8-35.4); Mean Corpuscular Hemoglobin 31.5 pg (27.0-31.2); Mean Corpuscular Volume 93.5 fl (81-99); Mean Platelet Volume 8.4 fl (7.4-10.4); Monocytes # 0.3 K/mm3 (0.1-1.0); Monocytes % 3.6 % (1.7-9.3); Neutrophils # 4.8 K/mm3 (1.8-7.8); Neutrophils % 62.8 % (37.0-80.0); Platelet Count 252 K/mm3 (142-424); Red Blood Count 5.53 M/mm3 (4.20-5.40); Red Cell Distribution Width 14.6 % (11.5-17.5); White Blood Count 7.7 K/mm3 (4.8-10.8)
[2023-03-04 01:08] LABS: D001-IgE D pteronyssinus 0.62 kU/L (Class II); D002-IgE D farinae 0.45 kU/L (Class I); E005-IgE Dog Dander >100 kU/L (Class VI); E072-IgE Mouse Urine <0.10 kU/L (Class 0); G002-IgE Bermuda Grass 0.14 kU/L (Class 0/I); G006-IgE Timothy Grass <0.10 kU/L (Class 0); Immunoglobulin E, Total 1944 IU/mL (6-495); M001-IgE Penicillium chrysogen <0.10 kU/L (Class 0); M002-IgE Cladosporium herbarum <0.10 kU/L (Class 0); M003-IgE Aspergillus fumigatus <0.10 kU/L (Class 0); M006-IgE Alternaria alternata <0.10 kU/L (Class 0); T001-IgE Maple/Box Elder 0.11 kU/L (Class 0/I); T003-IgE Common Silver Birch <0.10 kU/L (Class 0); T006-IgE Cedar, Mountain 0.16 kU/L (Class 0/I); T007-IgE Oak, White 0.13 kU/L (Class 0/I); T008-IgE Elm, American 0.31 kU/L (Class 0/I); T010-IgE Walnut 1.62 kU/L (Class III); T011-IgE Maple Leaf Sycamore 0.15 kU/L (Class 0/I); T015-IgE Ash, White <0.10 kU/L (Class 0); T022-IgE Pecan, Hickory 3.38 kU/L (Class III); T070-IgE White Mulberry <0.10 kU/L (Class 0); W001-IgE Ragweed, Short 0.41 kU/L (Class I); W011-IgE Thistle, Russian 0.13 kU/L (Class 0/I); W014-IgE Pigweed, Common <0.10 kU/L (Class 0); W018-IgE Sheep Sorrel <0.10 kU/L (Class 0)
== END 2023-02-28 23:59 ==
LOC: LAB 09:39
PROVIDERS: PCP Family Medicine; Visit Provider Internal Medicine Pulmonary Disease
DX: J30.9 Allergic rhinitis, unspecified (principal); J45.909 Unspecified asthma, uncomplicated; R06.09 Other forms of dyspnea
CPT/HCPCS: 36415; 82785; 85025; 86003

== ENCOUNTER 2023-04-01 19:25 | Outpatient (CLI) | payer OTHER, SELFPAY ==
[2023-04-01 18:08] LABS: Hemoglobin A1C 5.6 % (4.0-6.0)
[2023-04-01 18:13] LABS: Thyroid Stimulating Hormone 5.92 uIU/mL (0.465-4.68)
[2023-04-04 09:33] LABS: Alanine Aminotransferase 24 U/L (12-78); Albumin Level 3.7 g/dl (3.5-5.0); Alkaline Phosphatase 121 U/L (38-126); Anion Gap 13.6 mEq/L (5-15); Aspartate Amino Transferase 30 U/L (14-36); Bilirubin,Direct 0.2 mg/dl (0.0-0.4); Bilirubin,Indirect 0.7 mg/dL (0.0-0.9); Bilirubin,Total 0.9 mg/dl (0.2-1.3); Bilirubin,Unconjugated 0.8 mg/dL (0.0-1.1); Blood Urea Nitrogen 12 mg/dl (7-17); Calcium 9.1 mg/dl (8.4-10.2); Carbon Dioxide 24 mmol/L (22.0-30.0); Chloride 108 mmol/L (98-107); Cholesterol 217 mg/dl (140-200); Estimated Glomerular Filt Rate 89 ml/min (>60); GFR (African American) 108 ML/MIN (>60); Glucose 98 mg/dl (74-100); HDL Cholesterol 36 mg/dl (40-60); Potassium 4.6 mmoL/L (3.5-5.1); Sodium 141 mmol/L (136-145); Total Protein,Serum 6.7 g/dl (6.3-8.2); Triglycerides 96 mg/dl (30-150); VLDL Cholesterol 19 mg/dL (0-40)
[2023-04-04 09:44] LABS: Direct LDL Cholesterol 149.64 mg/dL (100-129)
[2023-04-04 09:49] LABS: Free T4 (Free Thyroxine) 1.22 ng/dl (0.78-2.19)
== END 2023-04-01 23:59 ==
LOC: LAB.DROPOF 19:26
PROVIDERS: Nurse Practitioner; PCP Nurse Practitioner Family; Visit Provider Nurse Practitioner Family
DX: E03.9 Hypothyroidism, unspecified (principal); E78.5 Hyperlipidemia, unspecified; I10 Essential (primary) hypertension; E55.9 Vitamin D deficiency, unspecified; F17.210 Nicotine dependence, cigarettes, uncomplicated
CPT/HCPCS: 80048; 80061; 80076; 82306; 83036; 84439; 84443

== ENCOUNTER 2023-04-07 12:48 | Outpatient (CLI) | payer OTHER, SELFPAY ==
--- NOTE | 2023-04-07 12:48 | MM_ITS ---
PROCEDURE INFORMATION: Exam: MG Bilateral Screening 3D Mammography Exam date and time: 04/07/2023 12:55 PM Age: 48 years old Clinical indication: Screening examination TECHNIQUE: Imaging protocol: Bilateral Screening tomosynthesis and 2D mammography including computer-aided detection (CAD) when performed. COMPARISON: 1. MG MM DIG SCREENING MAMM BI W/CAD 04/06/2022 2:18 PM 2. MG DMSB DIG MAMM-SCREEN MARCEL W/CAD 12/24/2016 4:05 PM FINDINGS: MAMMOGRAPHY: Breast composition: The breasts are almost entirely fatty. Mass: None. Architectural distortion: None. Calcifications: No suspicious calcifications. Asymmetric density: None. Skin thickening: None. Axillary adenopathy: None. IMPRESSION: No mammographic evidence of malignancy. Annual screening is recommended unless otherwise clinically indicated. ASSESSMENT: BI-RADS Category 1: Negative
== END 2023-04-07 23:59 ==
LOC: RAD 12:48
PROVIDERS: PCP Family Medicine; Visit Provider Nurse Practitioner Family
DX: Z12.31 Encounter for screening mammogram for malignant neoplasm of breast (principal); E03.9 Hypothyroidism, unspecified; E78.5 Hyperlipidemia, unspecified; I10 Essential (primary) hypertension
CPT/HCPCS: 77063; 77067

== ENCOUNTER 2023-07-21 16:28 | Outpatient (CLI) | payer OTHER, SELFPAY ==
[2023-07-21 16:27] LABS: Chloride 105 mmol/L (98-107); Sodium 139 mmol/L (136-145)
[2023-07-21 16:30] LABS: Alanine Aminotransferase 25 U/L (12-78); Albumin Level 3.4 g/dl (3.5-5.0); Albumin/Globulin Ratio 1.1 (1.1-1.8); Alkaline Phosphatase 95 U/L (38-126); Aspartate Amino Transferase 45 U/L (14-36); Bilirubin,Total 0.8 mg/dl (0.2-1.3); Blood Urea Nitrogen 10 mg/dl (7-17); Carbon Dioxide 29 mmol/L (22.0-30.0); Estimated Glomerular Filt Rate 89 ml/min (>60); GFR (African American) 108 ML/MIN (>60); Globulin 3.1 g/dL (1.3-3.2); Glucose 104 mg/dl (74-100); Total Protein,Serum 6.5 g/dl (6.3-8.2)
[2023-07-21 16:31] LABS: Calcium 8.5 mg/dl (8.4-10.2); Magnesium 1.8 mg/dl (1.6-2.3)
[2023-07-21 18:54] LABS: Vitamin B12 199 pg/mL (239-931)
[2023-07-21 19:54] LABS: Hemoglobin A1C 5.4 % (4.0-6.0)
== END 2023-07-21 23:59 | disposition home or self-care (01) ==
LOC: LAB.DROPOF 16:45
PROVIDERS: PCP Nurse Practitioner Family; Visit Provider Nurse Practitioner Family
DX: E03.9 Hypothyroidism, unspecified (principal); E78.2 Mixed hyperlipidemia
CPT/HCPCS: 80053; 82607; 83036; 83735

== ENCOUNTER 2023-07-27 07:59 | Outpatient (CLI) | payer OTHER, SELFPAY ==
--- NOTE | 2023-07-27 08:03 | US_ITS ---
FINAL REPORT CLINICAL HISTORY: Bilateral lower extremity pain and discoloration, Morbid obesity, Smoker,HTN COMPARISON: None FINDINGS: LOWER EXTREMITY SEGMENTAL PRESSURE MEASUREMENTS FINDINGS: Pressure indices are as follows: RIGHT LOWER EXTREMITY: Thigh: 1.27 Calf: 0.94 Ankle, posterior tibial artery: 1.08 Ankle, dorsalis pedis: 1.11 Toe: 0.77 SHIRLENE: 1.11 Comments: Within normal limits LEFT LOWER EXTREMITY: Thigh: NC Calf: 1.17 Ankle, posterior tibial artery: 1.05 Ankle, dorsalis pedis: 0.99 Toe: 0.68 SHIRLENE: 1.05 Comments: Within normal limits IMPRESSION: No evidence of peripheral vascular disease. Reviewed, Interpreted and Dictated by Jose Stovall MD Transcribed by Cari Ruiz Authenticated and [facility]
== END 2023-07-27 23:59 | disposition home or self-care (01) ==
LOC: RT 07:59
PROVIDERS: PCP Family Medicine; Visit Provider Nurse Practitioner Family
DX: I73.9 Peripheral vascular disease, unspecified (principal)
CPT/HCPCS: 93923

== ENCOUNTER 2023-10-27 17:23 | Emergency (ER) | payer OTHER, SELFPAY ==
[2023-10-27] VITALS (13 sets, daily range): BP systolic 110–168; BP diastolic 71–80; PULSE 76–104; RESP 20–22; TEMP 36.9; O2SAT 94–98; BMI 57.8
--- NOTE | 2023-10-27 17:38 | ED_ITS ---
<Statement entered by Renu Corbin DO - 10/27/23 21:30> I was consulted by the WIL, and we discussed the complexity of the problems being addressed. I approved the treatment and management plan for this patient's care in the emergency department, thus performing a substantive portion of the medical decision making. Renu Corbin DO Discharge Plan Disposition Patient Disposition: Home, Self-Care Condition: Good Chief Complaint: PAIN Prescriptions Prescriptions: No Action albuterol sulfate 90 mcg/actuation HFA aerosol inhaler 2 puff IH Q6HP PRN (Reason: Shortness Of Breath) 30 Days Qty: 1 5RF Breztri Aerosphere 160-9-4.8 mcg/actuation HFA aerosol inhaler 2 inh inhalation BID 90 Days Qty: 10.7 3RF ipratropium-albuterol 0.5 mg-3 mg(2.5 mg base)/3 mL solution for nebulization 3 ml inhalation Q6H PRN (Reason: shortness of breath or wheezing) Qty: 90 3RF azelastine 137 mcg (0.1 %) aerosol,spray 2 spray intranasal BIDP PRN (Reason: Allergies) 30 Days Qty: 30 2RF Rx Instructions: into both nostrils cetirizine [All Day Allergy (cetirizine)] 10 mg tablet 10 mg PO DAILY PRN (Reason: allergy symptoms) Qty: 30 3RF fluticasone propionate [Flonase Allergy Relief] 50 mcg/actuation spray,suspension 2 spray intranasal DAILY 90 Days Qty: 16 2RF Rx Instructions: administer into each nostril montelukast [Singulair] 10 mg tablet 10 mg PO DAILY Qty: 90 2RF omeprazole 40 mg capsule,delayed release(DR/EC) See Rx Instructions .ROUTE .COMPLEX Qty: 30 5RF Dose Instruction: TAKE 1 CAPSULE BY MOUTH ONCE DAILY (SWALLOW WHOLE) DO NOT CRUSH, CHEW, DISSOLVE, OR CUT/BREAK. Rx Instructions: TAKE 1 CAPSULE BY MOUTH ONCE DAILY (SWALLOW WHOLE) DO NOT CRUSH, CHEW, DISSOLVE, OR CUT/BREAK. aspirin [Adult Low Dose Aspirin] 81 mg tablet,delayed release (DR/EC) 81 mg PO DAILY Qty: 90 3RF spironolactone [Aldactone] 100 mg tablet 100 mg PO DAILY Qty: 90 3RF losartan 100 mg tablet 100 mg PO DAILY Qty: 90 3RF furosemide [Lasix] 40 mg tablet 40 mg PO MOWEFR Qty: 90 3RF bisoprolol fumarate 10 mg tablet 10 mg PO DAILY Qty: 90 3RF atorvastatin [Lipitor] 40 mg tablet 40 mg PO DAILY Qty: 30 2RF levothyroxine 50 mcg tablet 50 mcg PO DAILY Qty: 30 2RF mecobalamin (vitamin B12) 1,000 mcg tablet,chewable 1,000 mcg PO DAILY Qty: 90 2RF ergocalciferol (vitamin D2) [Vitamin D2] 1,250 mcg (50,000 unit) capsule 1,250 mcg PO WEEKLY 30 Days Qty: 5 2RF Referrals Follow up/Referrals: Marlo López MD [Primary Care Provider] - See instructions Activity Restrictions/Add. Instructions Additional Instructions/Restrictions: Follow-up with your PCP within 48 hours for recheck and further workup as needed. Return to ER for any worsening signs or symptoms including fever intolerance of oral intake inability to pass stool or flatus. Clinical Impressions Clinical Impression: Right lower quadrant abdominal pain Print Language Print Language: Icelandic Discharge ED Provider: Renu Corbin General Adult HPI General Chief complaint: PAIN Stated complaint: Right groin pain,Abdominal Pain Time Seen by Provider: 10/27/23 17:38 History of Present Illness HPI narrative: Patient presents for evaluation of right lower quadrant pain. Patient gives a history of 3 to 4 weeks of right lower quadrant abdominal pain. She states that either when she coughs or bends over she has to hold her abdomen in the right lower quadrant for not to hurt. It occasionally hurts eating and she does. She denies any nausea vomiting diarrhea hemoptysis hematochezia melena. She has had a bowel movement today she is passing flatus today. She is not intolerant of oral intake. She denies dysuria. She has had a cholecystectomy and appendectomy. Related Data Previous Rx's ?Medication ?Instructions ?Recorded albuterol sulfate 90 mcg/actuation 2 puff inhalation Q6HP PRN 03/09/23 aerosol inhaler Shortness Of Breath 30 days #1 ea budesonide 160 mcg-glycopyr 9 2 inh inhalation BID 90 days #10.7 03/09/23 mcg-formot 4.8 mcg/actuation HFA grams inhaler (Breztri Aerosphere) ipratropium 0.5 mg-albuterol 3 mg 3 ml inhalation Q6H PRN shortness 03/09/23 (2.5 mg base)/3 mL nebulization of breath or wheezing #90 mL soln aspirin 81 mg tablet,delayed 81 mg PO DAILY Heart health #90 03/16/23 release (Adult Low Dose Aspirin) tabs azelastine 137 mcg (0.1 %) nasal 2 spray intranasal BIDP PRN 04/01/23 spray Allergies 30 days #30 mL cetirizine 10 mg tablet (All Day 10 mg PO DAILY PRN allergy 04/01/23 Allergy (cetirizine)) symptoms #30 tabs fluticasone propionate 50 2 spray intranasal DAILY 90 days 04/01/23 mcg/actuation nasal #16 grams spray,suspension (Flonase Allergy Relief) montelukast 10 mg tablet 10 mg PO DAILY #90 tabs 04/01/23 (Singulair) omeprazole 40 mg capsule,delayed See Rx Instructions .Route 04/01/23 release .COMPLEX #30 caps levothyroxine 50 mcg tablet 50 mcg PO DAILY #30 tabs 04/04/23 mecobalamin (vitamin B12) 1,000 1,000 mcg PO DAILY #90 tabs 07/22/23 mcg chewable tablet ergocalciferol (vitamin D2) 1,250 1,250 mcg PO WEEKLY Supplement 30 08/22/23 mcg (50,000 unit) capsule (Vitamin days #5 caps D2) atorvastatin 40 mg tablet (Lipitor) 40 mg PO DAILY #30 tabs 09/14/23 bisoprolol fumarate 10 mg tablet 10 mg PO DAILY Heart rate #90 tabs 09/14/23 furosemide 40 mg tablet (Lasix) 40 mg PO MOWEFR Edema #90 tabs 09/14/23 losartan 100 mg tablet 100 mg PO DAILY High blood 09/14/23 pressure #90 tabs spironolactone 100 mg tablet 100 mg PO DAILY Edema #90 tabs 09/14/23 (Aldactone) Allergies Allergy/AdvReac Type Severity Reaction Status Date / Time isosorbide AdvReac Mild Verified 10/06/23 10:05 [facility] Disclaimer: The information contained in this section may have been updated after the patient was seen, as this information can be updated by other users. Medical History Smoking greater than 30 pack years Dyspnea on exertion COPD mixed type Asthma Asthma Obesity hypoventilation syndrome Morbid obesity with BMI of 50.0-59.9, adult Heart failure with preserved ejection fraction Tobacco dependence History of seasonal allergies Bilateral knee pain COVID-19 Exposure to COVID-19 virus Pulmonary HTN Diastolic dysfunction CAPRI (obstructive sleep apnea) PAD (peripheral artery disease) Tobacco use HLD (hyperlipidemia) HTN (hypertension) Surgical History History of endometrial ablation Hx of cardiac cath History of ankle surgery H/O tubal ligation History of H/O hernia repair Family History Father Cancer Coronary artery disease Hypertension Thyroid disorder Diabetes Mother Coronary artery disease Hypertension Thyroid disorder Diabetes Grandmother Diabetes Social History Smoking Status: Current every day smoker tobacco type: cigarettes packs per day: 27 second hand exposure: No alcohol intake: never substance use type: denies use current occupational status: other Travel in the last 8 weeks: None household members: spouse and children housing: house current occupational exposures/hazards: No caffeine: Yes ROS Obtained: Yes Systems reviewed as appropriate & no additional complaints except as documented Physical Exam General General appearance: alert and in no apparent distress Respiratory Respiratory exam: Present normal lung sounds bilaterally Cardiovascular Cardiovascular exam: Present regular rate Neurological Exam Neurological exam: Present alert and oriented X3 Medical Decision Making Medical Records Medical records reviewed: Yes I reviewed the patient's medical records. Screening: Per USPSTF and CDC recommendations, given the prevalence of disease in our region, it is our hospital?s policy to screen for HIV and viral Hepatitis for all patients aged 18 and over and those with ongoing risk factors. Jimmie Inquiry Pt receiving controlled substance: No Vital Signs: 10/27/23 17:26 10/27/23 18:45 10/27/23 19:15 Temperature 98.4 F Temperature Source Oral Pulse Rate 92 H 87 Pulse Rate [Right] 102 H Respiratory Rate 22 Blood Pressure Blood Pressure [Right Arm] 168/74 H Blood Pressure Mean Blood Pressure Mean [Right Arm] 105 02 Sat by Pulse Oximetry 95 94 L 95 Oxygen Delivery Method Room Air 10/27/23 19:30 10/27/23 19:36 10/27/23 19:36 Temperature Temperature Source Pulse Rate 83 104 H Pulse Rate [Right] Respiratory Rate Blood Pressure 133/80 Blood Pressure [Right Arm] Blood Pressure Mean 97 Blood Pressure Mean [Right Arm] 02 Sat by Pulse Oximetry 96 96 Oxygen Delivery Method 10/27/23 19:45 10/27/23 20:00 10/27/23 20:01 Temperature Temperature Source Pulse Rate 89 85 Pulse Rate [Right] Respiratory Rate Blood Pressure 135/79 Blood Pressure [Right Arm] Blood Pressure Mean 98 Blood Pressure Mean [Right Arm] 02 Sat by Pulse Oximetry 96 94 L Oxygen Delivery Method 10/27/23 20:01 10/27/23 20:21 10/27/23 20:30 Temperature Temperature Source Pulse Rate 85 89 84 Pulse Rate [Right] Respiratory Rate Blood Pressure Blood Pressure [Right Arm] Blood Pressure Mean Blood Pressure Mean [Right Arm] 02 Sat by Pulse Oximetry 94 L 96 96 Oxygen Delivery Method 10/27/23 20:31 10/27/23 20:31 10/27/23 20:45 Temperature Temperature Source Pulse Rate 81 89 Pulse Rate [Right] Respiratory Rate Blood Pressure 110/71 Blood Pressure [Right Arm] Blood Pressure Mean 90 Blood Pressure Mean [Right Arm] 02 Sat by Pulse Oximetry 97 95 Oxygen Delivery Method Lab Data Lab results reviewed: Yes I reviewed the patient's lab results. Lab Results 10/27/23 17:41: Urine Color Yellow, Urine Appearance Clear, Urine pH 5.5, Ur Specific [place] >= 1.030, Urine Protein Negative, Urine Glucose (UA) Negative, Urine Ketones Trace, Urine Blood Negative, Urine Nitrate Negative, Urine Bilirubin Negative, Urine Urobilinogen 0.2, Ur Leukocyte Esterase Negative, Urine RBC Occasional, Urine WBC 3-5, Ur Squamous Epith Cells 10-20, Calcium Oxalate Crystal 1+, Urine Bacteria Trace, Urine Mucus 3+ 10/27/23 18:20: WBC 12.3 H, RBC 4.83, Hgb 15.2, Hct 46.6, MCV 96.6, MCH 31.5 H, MCHC 32.6, RDW 14.5, Plt Count 266, MPV 7.1 L, Neut % (Auto) 67.9, Lymph % (Auto) 26.2, [place] % (Auto) 3.6, Eos % (Auto) 1.9, Baso % (Auto) 0.4, Neut # (Auto) 8.3 H, Lymph # (Auto) 3.2, [place] # (Auto) 0.4, Eos # (Auto) 0.2, Baso # (Auto) 0.1, Sodium 139, Potassium 3.4 L, Chloride 106, Carbon Dioxide 29, Anion Gap 7.4, BUN 13, Creatinine 0.80, Estimated Creat Clear 84, Estimated GFR 77, Est GFR ( Amer) 93, Glucose 101 H, Calcium 8.9, Total Bilirubin 1.2, AST 33, ALT 33, Alkaline Phosphatase 93, Total Protein 7.0, Albumin 3.9, Globulin 3.1, Albumin/Globulin Ratio 1.3, Serum HCG, Qual Negative, HIV 1&2 Antibody Rapid Nonreactive 10/27/23 18:20 10/27/23 18:20 Orders (Tests/Meds): ED MEDICATIONS Generic Name Dose Route Start Last Admin Trade Name Freq PRN Reason Stop Dose Admin Sodium Chloride 10 ml 10/27/23 20:22 10/27/23 20:23 Sodium Chloride 0.9% 10ml Syr (Rad Only) IV 11/26/23 20:21 10 ml NEEDED PRN Administration Maintain IV Site Discontinued Medications Generic Name Dose Route Start Last Admin Trade Name Freq PRN Reason Stop Dose Admin Acetaminophen 1,000 mg 10/27/23 18:11 10/27/23 18:27 Acetaminophen 1,000mg/100ml Vial IV 10/27/23 18:12 1,000 mg ONCE ONE Administration Lactated Ringer's 1,000 mls @ 999 mls/hr 10/27/23 18:11 10/27/23 18:27 Lactated Ringer's 1000 Ml Bag IV 10/27/23 19:11 999 mls/hr .Q1H1M ONE Administration Iopamidol 75 ml 10/27/23 20:22 10/27/23 20:23 Iopamidol-370 (76%);100ml Bottle IV 10/27/23 20:23 75 ml ONCE ONE Administration Ketorolac Tromethamine 15 mg 10/27/23 18:11 10/27/23 18:27 Ketorolac 30mg/Ml Vial IV 10/27/23 18:12 15 mg ONCE ONE Administration ORDERS Category Date Time Status CT abdomen pelvis w con Stat Cat Scan 10/27/23 18:11 Completed CBC w/Auto Diff [Complete Blood Count Auto Diff] Stat Lab 10/27/23 18:20 Completed CMP [Comprehensive Metabolic Panel] Stat Lab 10/27/23 18:20 Completed HCG Qualitative, Serum Stat Lab 10/27/23 18:20 Completed HIV (1&2) Antibody Rapid Stat Lab 10/27/23 18:20 Completed Hep C Ab with Reflex to RNA Stat Lab 10/27/23 18:20 Received UA [Urinalysis and Microscopic] Stat Lab 10/27/23 17:41 Completed Medical Decision Narrative: In summary patient is a 48-year-old female who presents to the emergency department for evaluation of right lower quadrant abdominal pain. Patient is hemodynamically stable upon arrival, afebrile. Physical exam is remarkable for a morbidly obese 48-year-old female with a large pannus. Upon elevation of her pannus she is tender to palpation in the right lower quadrant/abdominal wall. There is no abdominal wall bulging on Valsalva but does increase her tenderness. Differential diagnosis includes urinary tract infection constipation ovarian cyst etc. Initial workup will be conducted with hematologic labs urinalysis CT scan abdomen pelvis. Initial interventions include crystalloid bolus Toradol Tylenol. Initial workup reviewed by me shows that her hematologic labs are nonactionable urinalysis shows occasional red blood cells 3-5 white cells 10-20 epithelial cells indicating contamination 1+ crystal of calcium oxalate trace bacteria 3+ mucus in my informal interpretation of her CT scan abdomen pelvis shows fat-containing umbilical hernia without evidence of stranding or bowel involvement prior to radiology read. Upon repeat evaluation moderate improvement in her discomfort. Given this patient is appropriate for discharge referral back to PCP and strict return precautions. Critical Care Critical Care Time Critical Care Time: No
--- NOTE | 2023-10-27 17:44 | PC.NURSE ---
pt reports she is having increased pain in the r groin area. denies trouble voiding. states she is having trouble walking as a result.
--- NOTE | 2023-10-27 18:11 | CT_ITS ---
PROCEDURE INFORMATION: Exam: CT Abdomen And Pelvis With Contrast Exam date and time: 10/27/2023 8:17 PM Age: 48 years old Clinical indication: Abdominal pain; Additional info: Right lower quadrant abdominal pain TECHNIQUE: Imaging protocol: Computed tomography of the abdomen and pelvis with contrast. Total images: 342 Radiation optimization: All CT scans at this facility use at least one of these dose optimization techniques: automated exposure control; mA and/or kV adjustment per patient size (includes targeted exams where dose is matched to clinical indication); or iterative reconstruction. Contrast material: ISOVUE; Contrast volume: 75 ml; Contrast route: IV; COMPARISON: CR XR CHEST 2V 06/20/2022 7:28 PM FINDINGS: Lungs: Calcified left lower lobe pulmonary granuloma. Heart: Normal heart size. Liver: Decreased liver attenuation from phase of contrast versus steatosis. Hepatomegaly at 23.5 cm. No discrete liver mass. Gallbladder and biliary ducts: Status post cholecystectomy. No biliary ductal dilatation. Pancreas: Normal. No ductal dilation. Spleen: Upper normal spleen at 13.2 cm. No splenic mass. Adrenal glands: Normal. No mass. Kidneys and ureters: No hydronephrosis, nephrolithiasis, or renal mass. No perinephric fluid. Stomach and bowel: Unremarkable stomach and duodenum. No ileus or bowel obstruction. Limited bowel wall assessment. Unremarkable small bowel and terminal ileum. Unremarkable colon. Collapsed rectum. Partially calcified remote small focus of epiploic appendagitis near the hepatic flexure. Appendix: No evidence for appendicitis. Intraperitoneal space: Unremarkable. No free air. No significant fluid collection. Vasculature: Abdominal aorta is normal in caliber. Major abdominal vessels enhance appropriately. Pelvic phleboliths. Lymph nodes: Unremarkable. No enlarged lymph nodes. Urinary bladder: Collapsed bladder. Reproductive: Physiologic uterus and ovaries. No adnexal mass or free pelvic fluid. Bones/joints: Moderate to severe degenerative disc disease and facet joint spondylosis L4-L5. Grade 1 anterior spondylolisthesis L4-L5. Minor retrolisthesis L5-S1. Limited bone detail secondary to attenuation artifacts. Benign sclerotic bone island right femoral head. Soft tissues: Limited by attenuation artifact from morbid obesity. 5.6 cm fat containing periumbilical hernia without bowel loop involvement. Diastasis of the rectus fascia. IMPRESSION: 1. No acute intra-abdominal or pelvic process. 2. No evidence for appendicitis. 3. Hepatomegaly with mild steatosis. 4. 5.6 cm fat containing periumbilical hernia. 5. Additional chronic and incidental findings.
[2023-10-27] MEDS: KETOROLAC 30MG/ML VIAL 15 MG IV (18:27)
[2023-10-27] MEDS: LACTATED RINGERS 1000ML 1,000 ML 999 ML IV (18:27)
[2023-10-27] MEDS: ACETAMINOPHEN 1,000MG/100ML VIAL 1000 MG IV (18:27)
[2023-10-27 18:42] LABS: Basophils # 0.1 K/mm3 (0-0.2); Basophils % 0.4 % (0.1-2.0); Eosinophils # 0.2 K/mm3 (0.0-0.4); Eosinophils % 1.9 % (0.1-12.0); Hematocrit 46.6 % (37.0-47.0); Hemoglobin 15.2 g/dL (12.2-16.2); Lymphocytes # 3.2 K/mm3 (0.7-4.5); Lymphocytes % 26.2 % (10-50); Mean Corpuscular HGB Conc 32.6 g/dL (31.8-35.4); Mean Corpuscular Hemoglobin 31.5 pg (27.0-31.2); Mean Corpuscular Volume 96.6 fl (81-99); Mean Platelet Volume 7.1 fl (7.4-10.4); Monocytes # 0.4 K/mm3 (0.1-1.0); Monocytes % 3.6 % (1.7-9.3); Neutrophils # 8.3 K/mm3 (1.8-7.8); Neutrophils % 67.9 % (37.0-80.0); Platelet Count 266 K/mm3 (142-424); Red Blood Count 4.83 M/mm3 (4.20-5.40); Red Cell Distribution Width 14.5 % (11.5-17.5); White Blood Count 12.3 K/mm3 (4.8-10.8)
[2023-10-27 18:45] LABS: Albumin Level 3.9 g/dl (3.5-5.0); Chloride 106 mmol/L (98-107); Sodium 139 mmol/L (136-145)
[2023-10-27 18:46] LABS: Potassium 3.4 mmoL/L (3.5-5.1)
[2023-10-27 18:48] LABS: Alanine Aminotransferase 33 U/L (12-78); Albumin/Globulin Ratio 1.3 (1.1-1.8); Alkaline Phosphatase 93 U/L (38-126); Anion Gap 7.4 mEq/L (5-15); Aspartate Amino Transferase 33 U/L (14-36); Bilirubin,Total 1.2 mg/dl (0.2-1.3); Blood Urea Nitrogen 13 mg/dl (7-17); Carbon Dioxide 29 mmol/L (22.0-30.0); Creatinine Clearance Estimated 84 mL/min (50-200); Estimated Glomerular Filt Rate 77 ml/min (>60); GFR (African American) 93 ML/MIN (>60); Globulin 3.1 g/dL (1.3-3.2)
[2023-10-27 18:49] LABS: Calcium 8.9 mg/dl (8.4-10.2); Glucose 101 mg/dl (74-100)
[2023-10-27 18:51] LABS: Microscopic, Urine URINE MICROSCOPIC (MICROSCOPIC)
[2023-10-27 19:22] LABS: HCG Qualitative, Serum Negative (Negative)
[2023-10-27 19:24] LABS: Appearance,Urine CLEAR (Clear); Bilirubin,Urine Negative (Negative); Blood, Urine Negative (Negative); Color,Urine YELLOW (Yellow); Glucose,Urine (UA) Negative (Negative); Ketones,Urine TRACE (Negative); Leukocyte Esterase,Urine Negative (Negative); Nitrate,Urine Negative (Negative); PH,Urine 5.5 (5.0-8.5); Protein,Urine Negative (Negative); Specific Gravity, Urine >= 1.030 (1.005-1.030); Urobilinogen,Urine 0.2 EU/dl (0.2)
[2023-10-27 19:47] LABS: HIV (1&2) Antibody Rapid NONREACTIVE (NONREACTIVE)
[2023-10-27 20:06] LABS: RBC,Urine Occasional #/hpf (0-3)
[2023-10-27 20:07] LABS: Calcium Oxalate Crystals,Urine 1+ /lpf; Mucus,Urine 3+ /lpf
[2023-10-27 20:08] LABS: Bacteria,Urine Trace /lpf
[2023-10-27] MEDS: IOPAMIDOL-370 (76%);100ML BOTTLE 75 ML IV (20:23)
[2023-10-27] MEDS: SODIUM CHLORIDE 0.9% 10ML SYR (RAD ONLY) 10 ML IV (20:23)
[2023-10-29 09:32] LABS: HCV Ab Non Reactive (Non Reactive)
== END 2023-10-27 22:05 | disposition home or self-care (01) ==
PROVIDERS: Physician Assistant; Emergency Provider Emergency Medicine; PCP Family Medicine
DX: R10.31 Right lower quadrant pain (principal); J44.9 Chronic obstructive pulmonary disease, unspecified; E66.01 Morbid (severe) obesity due to excess calories; I50.30 Unspecified diastolic (congestive) heart failure; I11.0 Hypertensive heart disease with heart failure; I27.20 Pulmonary hypertension, unspecified; I73.9 Peripheral vascular disease, unspecified; E78.5 Hyperlipidemia, unspecified; G47.33 Obstructive sleep apnea (adult) (pediatric); F17.210 Nicotine dependence, cigarettes, uncomplicated
CPT/HCPCS: 74177; 80053; 81001; 84703; 85025; 86803; 87389; 96361; 96374; 96375; 99285; J0131; J1885; J7120; Q9967

== ENCOUNTER 2024-02-20 08:44 | Outpatient (CLI) | payer OTHER, SELFPAY ==
[2024-02-20 09:34] LABS: Creatine Kinase 69 U/L (30-135)
[2024-02-20 09:35] LABS: Alanine Aminotransferase 29 U/L (12-78); Albumin Level 3.6 g/dl (3.5-5.0); Alkaline Phosphatase 103 U/L (38-126); Aspartate Amino Transferase 29 U/L (14-36); Bilirubin,Direct 0.1 mg/dl (0.0-0.4); Bilirubin,Indirect 0.6 mg/dL (0.0-0.9); Bilirubin,Total 0.7 mg/dl (0.2-1.3); Bilirubin,Unconjugated 0.6 mg/dL (0.0-1.1); Cholesterol 186 mg/dl (140-200); HDL Cholesterol 37 mg/dl (40-60); Total Protein,Serum 6.1 g/dl (6.3-8.2); Triglycerides 120 mg/dl (30-150); VLDL Cholesterol 24 mg/dL (0-40)
[2024-02-20 09:46] LABS: Direct LDL Cholesterol 132.22 mg/dL (100-129)
[2024-02-20 10:05] LABS: Thyroid Stimulating Hormone 4.93 uIU/mL (0.465-4.68)
[2024-02-20 10:41] LABS: Vitamin B12 467 pg/mL (239-931)
[2024-02-20 10:50] LABS: Folate 3.31 ng/mL
== END 2024-02-20 23:59 | disposition home or self-care (01) ==
LOC: LAB 08:44
PROVIDERS: Physician Assistant; PCP Family Medicine; Visit Provider Specialist
DX: E55.9 Vitamin D deficiency, unspecified (principal); E03.9 Hypothyroidism, unspecified; R53.83 Other fatigue; M62.838 Other muscle spasm; E78.2 Mixed hyperlipidemia; I10 Essential (primary) hypertension; Z72.0 Tobacco use
CPT/HCPCS: 36415; 80061; 80076; 82550; 82607; 82746; 84443

== ENCOUNTER 2024-03-27 13:17 | Observation (INO) | payer OTHER, SELFPAY ==
[2024-03-27] VITALS (12 sets, daily range): BP systolic 128–166; BP diastolic 67–99; PULSE 84–100; RESP 17–25; TEMP 36.6–36.9; O2SAT 84–99; BMI 57.6; BMI 56.5
--- NOTE | 2024-03-27 13:32 | PC.NURSE ---
1330 Pt taken to room 11. BP and pulse ox placed. O2 sat was noted to be 80% with a good pleth on room air. Oxygen applied by NC at 6L. O2 sat improved to 95%. Decreased down to 2L. Primary RN notified of pt arrival and oxygen saturation.
[2024-03-27 13:37] LABS: Coronavirus 19, PCR Not Detected (NotDetected); Influenza A, PCR Not Detected (NotDetected); Influenza B, PCR Not Detected (NotDetected)
--- NOTE | 2024-03-27 13:41 | ED_ITS ---
<Statement entered by Renu Corbin DO - 03/28/24 07:34> I was consulted by the WIL, and we discussed the complexity of the problems being addressed. I approved the treatment and management plan for this patient's care in the emergency department, thus performing a substantive portion of the medical decision making. Renu Corbin DO Discharge Plan Disposition Patient Disposition: Admitted Condition: Fair Clinical Impressions Clinical Impression: Acute hypoxemic respiratory failure, Hypokalemia, Hypomagnesemia, Hypocalcemia, Elevated brain natriuretic peptide (BNP) level Discharge ED Provider: Renu Corbin General Adult HPI General Chief complaint: Upper Respiratory Infection Stated complaint: Soa, congestion Time Seen by Provider: 03/27/24 13:41 Mode of Arrival: Wheelchair Source of Information: Patient Limitations: No Limitations Description of Symptoms (Recalled from ER Triage Doc. by RN): PT presents from Dr. López's office for an appointment. Pt's O2 level in the office was 88%. She states she also had a productive cough x 2 weeks and states she feels like she has a sinus infection. History of Present Illness HPI narrative: Patient presents from her PCPs office for hypoxia. Patient reports 2 weeks of increasing shortness of breath and productive cough. Patient feels like she has had an infection and actually set up an appointment with Dr. López for evaluation. On arrival it was noted that she was satting at 88% on room air. Patient has a known history of ongoing tobaccoism and has COPD on her chart but her patient denies knowing that she has COPD. She also has a history of morbid obesity with a current BMI of 56 today hypertension peripheral artery disease obesity hypoventilation syndrome CHF. She currently denies chest pain fever chills hemoptysis hematochezia melena nausea vomiting diarrhea. She is not on home O2 but does have a home nebulizer machine that she has been utilizing over the last 2 weeks. It has not given her any relief. Related Data Previous Rx's ?Medication ?Instructions ?Recorded aspirin 81 mg tablet,delayed 81 mg PO DAILY [facility] #90 03/16/23 release (Adult Low Dose Aspirin) tabs azelastine 137 mcg (0.1 %) nasal 2 spray intranasal BIDP PRN 04/01/23 spray Allergies 30 days #30 mL omeprazole 40 mg capsule,delayed See Rx Instructions .Route 04/01/23 release .COMPLEX #30 caps mecobalamin (vitamin B12) 1,000 1,000 mcg PO DAILY #90 tabs 07/22/23 mcg chewable tablet bisoprolol fumarate 10 mg tablet 10 mg PO DAILY Heart rate #90 tabs 09/14/23 furosemide 40 mg tablet (Lasix) 40 mg PO MOWEFR Edema #90 tabs 09/14/23 losartan 100 mg tablet 100 mg PO DAILY High blood 09/14/23 pressure #90 tabs spironolactone 100 mg tablet 100 mg PO DAILY Edema #90 tabs 09/14/23 (Aldactone) budesonide 160 mcg-glycopyr 9 2 inh inhalation BID 90 days #10.7 01/23/24 mcg-formot 4.8 mcg/actuation HFA grams inhaler ([employer] Aerosphere) cetirizine 10 mg tablet See Rx Instructions .Route 01/23/24 .COMPLEX #30 tabs fluticasone propionate 50 2 spray intranasal DAILY 90 days 01/23/24 mcg/actuation nasal #16 grams spray,suspension (Flonase Allergy Relief) montelukast 10 mg tablet See Rx Instructions .Route 01/23/24 .COMPLEX #90 tabs ipratropium 0.5 mg-albuterol 3 mg 3 ml inhalation Q6H PRN shortness 02/02/24 (2.5 mg base)/3 mL nebulization of breath or wheezing #90 mL soln ergocalciferol (vitamin D2) 1,250 See Rx Instructions .Route 02/21/24 mcg (50,000 unit) capsule (Vitamin .COMPLEX #5 caps D2) magnesium chloride 70 mg 70 mg PO HS Muscle cramps #30 tabs 02/21/24 (magnesium chloride) tablet,delayed release levothyroxine 50 mcg tablet 50 mcg PO DAILY 30 days #40 tabs 02/22/24 atorvastatin 80 mg tablet 80 mg PO DAILY #90 tabs 03/15/24 albuterol sulfate 90 mcg/actuation See Rx Instructions .Route 03/20/24 aerosol inhaler (Ventolin HFA) .COMPLEX #18 grams Allergies Allergy/AdvReac Type Severity Reaction Status Date / Time isosorbide AdvReac Mild Verified 03/27/24 12:04 [facility] Disclaimer: The information contained in this section may have been updated after the patient was seen, as this information can be updated by other users. Medical History Smoking greater than 30 pack years Dyspnea on exertion COPD mixed type Asthma Asthma Obesity hypoventilation syndrome Morbid obesity with BMI of 50.0-59.9, adult Heart failure with preserved ejection fraction Tobacco dependence History of seasonal allergies Bilateral knee pain COVID-19 Exposure to COVID-19 virus Pulmonary HTN Diastolic dysfunction CAPRI (obstructive sleep apnea) PAD (peripheral artery disease) Tobacco use HLD (hyperlipidemia) HTN (hypertension) Surgical History Hx of cholecystectomy History of endometrial ablation Hx of cardiac cath History of ankle surgery H/O tubal ligation History of H/O hernia repair Family History Father Cancer Coronary artery disease Hypertension Thyroid disorder Diabetes Mother Coronary artery disease Hypertension Thyroid disorder Diabetes Grandmother Diabetes Social History Smoking Status: Current every day smoker tobacco type: cigarettes packs per day: 27 second hand exposure: No alcohol intake: never substance use type: denies use current occupational status: other Travel in the last 8 weeks: None household members: spouse and children housing: house marital status: current occupational exposures/hazards: No caffeine: Yes Have you lived/traveled outside [place] in past 30 days?: No Contact w/someone who lives/traveled outside US past 30 days?: No Exposure to someone with infectious disease in past 14 days?: No Do you have a fever (greater than 100.4 F or 38 C)?: No Have you tested positive for COVID-19: No Exposed to someone with COVID-19 in past 14 days?: No Do you have a sore throat?: No Do you have a cough?: No Do you have any weakness?: No Do you have any diarrhea?: No Are you experiencing any unusual bleeding?: No Do you have any muscle aches/pain?: No Do you have any abdominal pain?: No Are you experiencing loss of taste or smell?: No Other Medical History Have you received the Flu Vaccine for this season: No Have you received the Pneumonia Vaccine: No ROS Obtained: Yes Systems reviewed as appropriate & no additional complaints except as documented Physical Exam General General appearance: alert and in no apparent distress Respiratory Respiratory exam: Present normal lung sounds bilaterally (End expiratory wheezes in the lower lung fine with no increased work of breathing or accessory muscle use.) and wheezes; Absent respiratory distress or accessory muscle use Cardiovascular Cardiovascular exam: Present regular rate Neurological Exam Neurological exam: Present alert and oriented X3 Medical Decision Making Medical Records Medical records reviewed: Yes I reviewed the patient's medical records. Screening: Per USPSTF and CDC recommendations, given the prevalence of disease in our region, it is our hospital?s policy to screen for HIV and viral Hepatitis for all patients aged 18 and over and those with ongoing risk factors. Jimmie Inquiry Pt receiving controlled substance: No Vital Signs: 03/27/24 13:18 03/27/24 13:30 03/27/24 13:45 Temperature 97.8 F Temperature Source Tympanic Pulse Rate 98 H Pulse Rate [Right] 97 H Respiratory Rate 18 25 H Blood Pressure Blood Pressure [Right Arm] 166/83 H Blood Pressure Mean [Right Arm] 110 Blood Pressure Source [Right Arm] Automatic Cuff Blood Pressure Position [Right Arm] Sitting 02 Sat by Pulse Oximetry 90 L 84 L 89 L Oxygen Delivery Method Room Air Room Air Nasal Cannula Oxygen Flow Rate (LPM) 2 03/27/24 13:50 03/27/24 14:30 03/27/24 15:00 Temperature Temperature Source Pulse Rate 95 H 100 H Pulse Rate [Right] Respiratory Rate 22 20 Blood Pressure 153/84 H 154/83 H Blood Pressure [Right Arm] Blood Pressure Mean [Right Arm] Blood Pressure Source [Right Arm] Blood Pressure Position [Right Arm] 02 Sat by Pulse Oximetry 95 99 95 Oxygen Delivery Method Nasal Cannula Nasal Cannula Nasal Cannula Oxygen Flow Rate (LPM) 4 4 4 03/27/24 16:30 03/27/24 17:00 03/27/24 17:29 Temperature 98.2 F Temperature Source Pulse Rate 95 H 97 H 84 Pulse Rate [Right] Respiratory Rate 24 23 20 Blood Pressure 154/94 H 147/99 H 147/89 H Blood Pressure [Right Arm] Blood Pressure Mean [Right Arm] Blood Pressure Source [Right Arm] Blood Pressure Position [Right Arm] 02 Sat by Pulse Oximetry 93 L 93 L Oxygen Delivery Method Nasal Cannula Nasal Cannula Room Air Oxygen Flow Rate (LPM) 4 4 Lab Data Lab results reviewed: Yes I reviewed the patient's lab results. Lab Results 03/27/24 13:24: Chlamy pneumoniae PCR Not detected, Adenovirus (PCR) Not detected, B. pertussis DNA (PCR) Not detected, Coronavirus OC43 (PCR) Not detected, Coronavirus HKU1 (PCR) Not detected, Coronavirus 229E (PCR) Not detected, SARS-CoV-2 (PCR) Not detected 03/27/24 13:24: SARS-CoV-2 (PCR) Not detected, Coronavirus NL63 (PCR) Not detected, Human Metapneumovir PCR Not detected, Influenza A (H1) PCR Not detected, Influ A (H1N1/09) PCR Not detected, Influenza A (H3) PCR Not detected, Influenza Type A (PCR) Not detected, Influenza A Untype (PCR) Not detected, Influenza Type B (PCR) Not detected 03/27/24 13:24: Influenza Type B (PCR) Not detected, M. pneumoniae (PCR) Not detected, Parainfluenza 1 (PCR) Not detected, Parainfluenza 2 (PCR) Not detected, Parainfluenza 3 (PCR) Not detected, Parainfluenza 4 (PCR) Not detected, RSV (PCR) Not detected, Entero/Rhino (PCR) Not detected 03/27/24 13:40: WBC 9.9, RBC 4.76, Hgb 14.7, Hct 42.7, MCV 89.7, MCH 30.9, MCHC 34.4, RDW 14.0, Plt Count 209, MPV 9.9, Neut % (Auto) 61.9, Lymph % (Auto) 31.3, [place] % (Auto) 4.8, Eos % (Auto) 0.8, Baso % (Auto) 0.2, Neut # (Auto) 6.1, Lymph # (Auto) 3.1, [place] # (Auto) 0.5, Eos # (Auto) 0.1, Baso # (Auto) 0.0, PT 10.7, INR 0.97, Sodium 141, Potassium 2.6 L*, Chloride 102, Carbon Dioxide 35 H, Anion Gap 6.6, BUN 7, Creatinine 0.70, Estimated Creat Clear 91, Estimated GFR 89, Est GFR ( Amer) 108, Glucose 84, Hemoglobin A1c 5.5, Calcium 7.9 L, Magnesium 1.5 L, Total Bilirubin 0.7, AST 31, ALT 24, Alkaline Phosphatase 105, Troponin I < 0.01, NT-Pro-B Natriuret Pep 188 H, Total Protein 7.2, Albumin 3.7, Globulin 3.5 H, Albumin/Globulin Ratio 1.1, Procalcitonin 0.086, TSH 3.44, Free T4 Index 4.2 L, Thyroxine (T4) 11.9 H, T3 Uptake 35 03/27/24 13:50: VBG pH 7.40, VBG pCO2 49.3, VBG pO2 34.9, VBG HCO3 30.1 H, VBG Total CO2 31.6 H, VBG O2 Saturation 68.8, VBG Base Excess 5.3 H, VBG Lactic Acid 2.3 H 03/27/24 15:40: Urine Color Yellow, Urine Appearance Clear, Urine pH 6.0, Ur Specific Mize 1.010, Urine Protein Negative, Urine Glucose (UA) Negative, Urine Ketones Negative, Urine Blood Negative, Urine Nitrate Negative, Urine Bilirubin Negative, Urine Urobilinogen 0.2, Ur Leukocyte Esterase Negative, Urine RBC None, Urine WBC 3-5, Ur Squamous Epith Cells Occasional, Urine Bacteria Trace 03/27/24 13:40 03/27/24 13:40 Orders (Tests/Meds): ED MEDICATIONS Generic Name Dose Route Start Last Admin Trade Name Henryq PRN Reason Stop Dose Admin Acetaminophen 650 mg 03/27/24 21:40 03/27/24 22:14 Acetaminophen 325mg Tab PO 04/26/24 21:39 650 mg Q6HP PRN Administration Fever or Mild Pain (1-3) Albuterol/Ipratropium 3 ml 03/27/24 18:00 03/27/24 18:22 Ipratropium/Albuterol 3 Ml [facility] 04/26/24 17:59 3 ml Q6RT TERRY Administration Aspirin 81 mg 03/28/24 09:00 Aspirin Ec 81mg Tablet PO 04/27/24 08:59 DAILY TERRY Atorvastatin Calcium 80 mg 03/28/24 09:00 Atorvastatin 40mg Tablet PO 04/27/24 08:59 DAILY [facility] Budesonide 0.5 mg 03/28/24 06:00 Budesonide 0.5mg/2ml [facility] 04/27/24 05:59 BIDRT TERRY Bumetanide 1 mg 03/28/24 09:00 Bumetanide 1mg/4ml Vial IV 04/27/24 08:59 BIDL TERRY Enoxaparin Sodium 60 mg 03/27/24 21:00 03/27/24 21:03 Enoxaparin 60mg/0.6ml Syringe SUBCUT 04/26/24 20:59 60 mg BID TERRY Administration Sodium Chloride 1,000 mls @ 125 mls/hr 03/27/24 15:15 03/27/24 15:37 Sod Chlor 0.9% 1000ml Bag IV 04/26/24 15:14 125 mls/hr .Q8H TERRY Administration Levofloxacin/Dextrose 750 mg in 150 mls @ 100 mls/hr 03/27/24 18:15 03/27/24 18:48 Levofloxacin 750mg/150ml Premix IV 04/06/24 18:14 100 mls/hr Q24H TERRY Administration Irbesartan 150 mg 03/28/24 09:00 Irbesartan 150mg Tab PO 04/27/24 08:59 DAILY TERRY Levothyroxine Sodium 50 mcg 03/28/24 09:00 Levothyroxine 50mcg (0.05mg) Tab PO 04/27/24 08:59 DAILY TERRY Montelukast Sodium 10 mg 03/28/24 18:00 Montelukast Sodium 10mg Tab PO 04/27/24 17:59 PM TERRY Nicotine 14 mg 03/27/24 20:00 Nicotine 14mg/24hrs Patch TD 04/26/24 19:59 DAILYP PRN Nicotine Cravings Non-Formulary Medication 100 mg 03/28/24 09:00 Spironolactone [Aldactone] PO 04/27/24 08:59 DAILY TERRY Non-Formulary Medication 2 inh 03/27/24 21:00 03/27/24 20:57 Oresmohqxj-Kjquzoit-Jtdahzhawm [Breztri Aerosphere] IH 04/26/24 20:59 Not Given BID TERRY Non-Formulary Medication 10 mg 03/28/24 09:00 Bisoprolol Fumarate PO 04/27/24 08:59 DAILY TERRY Pantoprazole Sodium 40 mg 03/27/24 21:00 03/27/24 21:03 Pantoprazole 40mg Tablet PO 04/26/24 20:59 40 mg HS TERRY Administration Discontinued Medications Generic Name Dose Route Start Last Admin Trade Name Henryq PRN Reason Stop Dose Admin Albuterol/Ipratropium 9 ml 03/27/24 13:49 03/27/24 13:59 Ipratropium/Albuterol 3 Ml Neb IH 03/27/24 13:50 9 ml ONCE ONE Administration Dexamethasone Sodium Phosphate 10 mg 03/27/24 13:49 03/27/24 13:59 Dexamethasone 4mg/Ml 5ml Mdv IV 03/27/24 13:50 10 mg ONCE ONE Administration Potassium Chloride/Water 100 mls @ 50 mls/hr 03/27/24 14:47 03/27/24 21:03 Potassium Chloride 20meq/100ml Ivpb IV 03/27/24 20:46 50 mls/hr Q2H TERRY Administration Magnesium Sulfate 2 gm in 50 mls @ 50 mls/hr 03/27/24 14:47 03/27/24 14:59 Magnesium Sulfate 2gm/50ml Premix IV 03/27/24 15:46 50 mls/hr ONCE ONE Administration Calcium Gluconate/Sodium Chloride 2 gm in 100 mls @ 50 mls/hr 03/27/24 14:48 03/27/24 15:23 Calcium Gluconate 2,000mg/100ml Nacl Premix IV 03/27/24 16:47 50 mls/hr ONCE ONE Administration Magnesium Sulfate 2 gm in 50 mls @ 50 mls/hr 03/27/24 17:05 03/27/24 18:07 Magnesium Sulfate 2gm/50ml Premix IV 03/27/24 18:04 50 mls/hr ONCE ONE Administration Iopamidol 85 ml 03/27/24 14:46 03/27/24 14:47 Iopamidol-370 (76%);100ml Bottle IV 03/27/24 14:47 85 ml ONCE ONE Administration Potassium Chloride 60 meq 03/27/24 14:47 03/27/24 14:59 Potassium Chloride 20meq Tab PO 03/27/24 14:48 60 meq ONCE ONE Administration Sodium Chloride 10 ml 03/27/24 14:46 03/27/24 14:47 Sodium Chloride 0.9% 10ml Syr (Rad Only) IV 03/27/24 14:47 10 ml ONCE ONE Administration Sodium Chloride 50 ml 03/27/24 14:46 03/27/24 14:46 0.9 % Sodium Chloride 50 Ml Vial IV 03/27/24 14:47 50 ml ONCE ONE Administration ORDERS Category Date Time Status CT angio chest PE protocol Stat Cat Scan 03/27/24 13:49 Completed BNP [NT Pro Brain Natriuretic Pep.] Stat Lab 03/27/24 13:40 Completed CBC w/Auto Diff [Complete Blood Count Auto Diff] Stat Lab 03/27/24 13:40 Completed CMP [Comprehensive Metabolic Panel] Stat Lab 03/27/24 13:40 Completed Complete Blood Count Auto Diff AMLAB Lab 03/28/24 06:00 Ordered Comprehensive Metabolic Panel AMLAB Lab 03/28/24 06:00 Ordered Full Resp Panel w/COVID ([facility]) Routine Lab 03/27/24 13:24 Completed Hemoglobin A1C Stat Lab 03/27/24 13:40 Completed INR [Prothrombin Time INR] Stat Lab 03/27/24 13:40 Completed Magnesium AMLAB Lab 03/28/24 06:00 Ordered Magnesium Stat Lab 03/27/24 13:40 Completed Procalcitonin Stat Lab 03/27/24 13:40 Completed Rapid PCR Covid and Flu A/B Stat Lab 03/27/24 13:24 Completed Thyroid Panel Stat Lab 03/27/24 13:40 Completed Trop I [Troponin I] Stat Lab 03/27/24 13:40 Completed Troponin I Q3H Lab 03/27/24 18:03 Completed Troponin I Q3H Lab 03/27/24 19:58 Completed UA [Urinalysis and Microscopic] Stat Lab 03/27/24 15:40 Completed VBG [Venous Blood Gas] Stat RT 03/27/24 13:50 Completed HEART Score History (anamnesis): Slightly suspicious ECG: Normal Age: 45-65 years Risk factors: 3 or more risk factors Troponin: </= normal limit HEART Score: 3 Medical Decision Narrative: In summary patient is a 49-year-old female who presents to the emergency department for evaluation of hypoxia cough and congestion.. Patient is initially hypertensive with a blood pressure 166/83 with a heart rate of 97 with normal sinus rhythm on the bedside monitor breathing 18 times a minute satting at 88% on room air upon arrival, with a temperature of 97.8. Physical exam reveals a morbidly obese 49-year-old female, with a BMI of 56, who is in no acute distress. Breath sounds show faint end expiratory wheezes in the bilateral lung fine but breath sounds are heard to bases with no increased work of breathing or accessory muscle use. Heart sounds are S1-S2 without murmurs gallops rubs or or thrills and patient has nonpitting edema to the level of the knees without tenderness erythema or induration. Differential diagnosis includes PE versus pneumonia versus CHF versus COPD exacerbation etc. Initial workup will be conducted with hematologic labs VBG twelve-lead EKG CTA PE protocol full respiratory panel. Initial interventions include supplemental O2 DuoNeb Decadron continuous cardiac monitoring pulse oximetry. Initial workup reviewed by me shows patient has normal white count normal H&H no neutrophilic shift, INR 0.97, VBG shows a pH of 7.40 pCO2 of 43.9 and a VBG lactic acid of 2.3, patient has a critically low potassium of 2.6 a calcium of 7.9 with a normal albumin magnesium of 1.5 initial troponin of less than 0.01 and NT proBNP of 188 a procalcitonin of 0.086 TSH of 3.44 a bland urinalysis and her respiratory panel is negative for all organisms tested. Upon repeat evaluation patient is requiring 4 L to maintain a sat of 93% and is unable to be weaned off of O2. Given this I had interactive discussion with hospital medicine regarding patient YOUNG and findings and patient management and she will be admitted for further evaluation and care. Critical Care Critical Care Time Critical Care Time: Yes Attestation: On 03/27/24, the high probability of a clinically significant, sudden or life threatening deterioration of the following system(s) required my full and direct attention, intervention and personal management. The time I documented below is in addition to time spent performing reported procedures but includes the following listed in this critical care notation. Total Time Total Critical Care Time: 35
--- NOTE | 2024-03-27 13:49 | CT_ITS ---
FINAL REPORT TECHNIQUE: Axial imaging of the chest is obtained after the administration of contrast. 3-D MIP reformatted images were also obtained and reviewed per PE protocol. This study was performed with techniques to keep radiation doses as low as reasonably achievable (ALARA). Individualized dose reduction techniques using automated exposure control or adjustment of mA and/or kV according to the patient's size were employed. CLINICAL HISTORY: Dyspnea FINDINGS: There is suboptimal opacification of the pulmonary arteries. There is no central pulmonary embolism. However, peripheral embolism cannot be excluded. Some of this is due to contrast bolus timing and some is related to motion artifact. There is no axillary, hilar or mediastinal adenopathy. There is no pleural or pericardial effusion. There are reticulonodular opacities and small irregular nodular opacities in the right greater than left upper and lower lobes. Findings are favored represent bronchopneumonia. Limited imaging of the upper abdomen demonstrates no acute abnormality. Liver is fatty infiltrated. Spleen is enlarged. No acute osseous abnormality is seen. IMPRESSION: Technically limited exam without central pulmonary embolism or dissection. Bilateral bronchopneumonia. Recommend 3-month follow-up chest CT. Reviewed, Interpreted and Dictated by Iman Lainez MD Transcribed by Tish Polo Authenticated and [facility]
[2024-03-27 13:58] LABS: VBG Base Excess 5.3 mmol/L (-2.4-2.3); VBG HCO3 30.1 mmol/L (23-30); VBG Oxygen Saturation 68.8 % (50-70); VBG PCO2 49.3 mmol/L (35-51); VBG PO2 34.9 mmol/L (28-40); VBG Total CO2 31.6 mmol/L (23-27)
[2024-03-27 13:59] LABS: Lactate Venous 2.3 mmol/L (0.4-2.0)
[2024-03-27] MEDS: DEXAMETHASONE 4MG/ML 5ML MDV 10 MG IV (13:59)
[2024-03-27] MEDS: IPRATROPIUM/ALBUTEROL 3 ML NEB 9 ML IH (13:59)
[2024-03-27 14:02] LABS: Basophils % 0.2 % (0.1-2.0); Eosinophils # 0.1 K/mm3 (0.0-0.4); Eosinophils % 0.8 % (0.1-12.0); Hematocrit 42.7 % (37.0-47.0); Hemoglobin 14.7 g/dL (12.2-16.2); Lymphocytes # 3.1 K/mm3 (0.7-4.5); Lymphocytes % 31.3 % (10-50); Mean Corpuscular HGB Conc 34.4 g/dL (31.8-35.4); Mean Corpuscular Hemoglobin 30.9 pg (27.0-31.2); Mean Corpuscular Volume 89.7 fl (81-99); Mean Platelet Volume 9.9 fl (7.4-10.4); Monocytes # 0.5 K/mm3 (0.1-1.0); Monocytes % 4.8 % (1.7-9.3); Neutrophils # 6.1 K/mm3 (1.8-7.8); Neutrophils % 61.9 % (37.0-80.0); Platelet Count 209 K/mm3 (142-424); Red Blood Count 4.76 M/mm3 (4.20-5.40); White Blood Count 9.9 K/mm3 (4.8-10.8)
[2024-03-27 14:05] LABS: INR 0.97 (0.9-1.1); Prothrombin Time 10.7 seconds (9.2-12.1)
[2024-03-27 14:07] LABS: Albumin Level 3.7 g/dl (3.5-5.0); Chloride 102 mmol/L (98-107); Sodium 141 mmol/L (136-145)
[2024-03-27 14:10] LABS: Alanine Aminotransferase 24 U/L (12-78); Albumin/Globulin Ratio 1.1 (1.1-1.8); Alkaline Phosphatase 105 U/L (38-126); Anion Gap 6.6 mEq/L (5-15); Aspartate Amino Transferase 31 U/L (14-36); Bilirubin,Total 0.7 mg/dl (0.2-1.3); Blood Urea Nitrogen 7 mg/dl (7-17); Carbon Dioxide 35 mmol/L (22.0-30.0); Creatinine Clearance Estimated 91 mL/min (50-200); Estimated Glomerular Filt Rate 89 ml/min (>60); GFR (African American) 108 ML/MIN (>60); Globulin 3.5 g/dL (1.3-3.2); Total Protein,Serum 7.2 g/dl (6.3-8.2)
[2024-03-27 14:11] LABS: Calcium 7.9 mg/dl (8.4-10.2); Glucose 84 mg/dl (74-100); Magnesium 1.5 mg/dl (1.6-2.3)
[2024-03-27 14:20] LABS: NT Pro Brain Natriuretic Pep. 188 pg/mL (0-125)
[2024-03-27 14:31] LABS: Troponin I < 0.01 ng/ml (0.00-0.034)
[2024-03-27 14:33] LABS: Potassium 2.6 mmoL/L (3.5-5.1)
[2024-03-27 14:34] LABS: Free Thyroxine Index 4.2 ug/dL (5.93-13.13); T4 (Thyroxine) 11.9 ug/dl (5.53-11.0); Triiodothryronine (T3) Uptake 35 % (23.5-40.5)
[2024-03-27] MEDS: 0.9 % SODIUM CHLORIDE 50 ML VIAL IV (14:46)
[2024-03-27] MEDS: SODIUM CHLORIDE 0.9% 10ML SYR (RAD ONLY) 10 ML IV (14:47)
[2024-03-27] MEDS: IOPAMIDOL-370 (76%);100ML BOTTLE 85 ML IV (14:47)
[2024-03-27 14:48] LABS: Thyroid Stimulating Hormone 3.44 uIU/mL (0.465-4.68)
[2024-03-27 14:57] LABS: Hemoglobin A1C 5.5 % (4.0-6.0)
[2024-03-27] MEDS: MAGNESIUM SULFATE IN WATER 2 GM/50 ML PIGGYBACK IV ×2 (14:59→18:07)
[2024-03-27] MEDS: POTASSIUM CHLORIDE 20MEQ TAB 60 MEQ PO (14:59)
[2024-03-27 15:19] LABS: Procalcitonin 0.086 ng/mL (0.0-2.0)
[2024-03-27] MEDS: CALCIUM GLUC IN NACL, ISO-OSM 2 GM/100 ML BAG IV (15:23)
--- NOTE | 2024-03-27 15:32 | PC.NURSE ---
Called dietary for food for patient.
[2024-03-27] MEDS: 0.9 % SODIUM CHLORIDE 1000ML 1,000 ML 125 ML IV (15:37)
[2024-03-27 15:52] LABS: Adenovirus,PCR Not Detected (NotDetected); Bordetella Pertussis Not Detected (NotDetected); Chlamydophila Pneumoniae, PCR Not Detected (NotDetected); Coronavirus 19, PCR Not Detected (NotDetected); Coronavirus 229E Not Detected (NotDetected); Coronavirus NL63 Not Detected (NotDetected); Coronavirus OC43 Not Detected (NotDetected); Coronovirus HKU1,PCR Not Detected (NotDetected); Human Metapneumovirus Not Detected (NotDetected); Influenza A, PCR Not Detected (NotDetected); Influenza AH1, 2009 Not Detected (NotDetected); Influenza AH1, PCR Not Detected (NotDetected); Influenza AH3,PCR Not Detected (NotDetected); Influenza B, PCR Not Detected (NotDetected); Mycoplasma Pneumoniae, PCR Not Detected (NotDetected); Parainfluenza 1, PCR Not Detected (NotDetected); Parainfluenza 2, PCR Not Detected (NotDetected); Parainfluenza 3, PCR Not Detected (NotDetected); Parainfluenza 4, PCR Not Detected (NotDetected); Respiratory Syncytial Virus Not Detected (NotDetected); Rhinovirus/Enterovirus Not Detected (NotDetected)
[2024-03-27 15:52] LABS: Microscopic, Urine URINE MICROSCOPIC (MICROSCOPIC)
[2024-03-27 15:54] LABS: Appearance,Urine CLEAR (Clear); Bilirubin,Urine Negative (Negative); Blood, Urine Negative (Negative); Color,Urine YELLOW (Yellow); Glucose,Urine (UA) Negative (Negative); Ketones,Urine Negative (Negative); Leukocyte Esterase,Urine Negative (Negative); Nitrate,Urine Negative (Negative); Protein,Urine Negative (Negative); Urobilinogen,Urine 0.2 EU/dl (0.2)
--- NOTE | 2024-03-27 16:06 | PC.NURSE ---
Call light is in reach. Patient stated that she doesnt need anything at this time.
[2024-03-27] MEDS: KCl 20mEq/100ml 100 ML 50 MEQ IV ×3 (16:12→21:03)
[2024-03-27 16:13] LABS: Bacteria,Urine Trace /lpf; Squamous Epithelial Cell,Urine Occasional #/hpf (0-5)
--- NOTE | 2024-03-27 16:57 | PC.NURSE ---
ALISIA HOWARD SPEAKING WITH DR VÁSQUEZ
--- NOTE | 2024-03-27 17:07 | PC.NURSE ---
called store warehouse associate for bed request
--- NOTE | 2024-03-27 17:10 | P.HP_ITS ---
History of Present Illness *Admission Date: 03/27/24 *Reason for visit:: Dyspnea, cough *History of present illness: Ms. Xie is a 49-year-old female with morbid obesity, history of CAD, hyperlipidemia, tobacco use disorder, COPD. States that for the past few weeks she has had shortness of breath and cough. Is gotten worse over the past 2 to 3 days. Cough initially was productive but is gotten better. Dyspnea is worsened over the past 2 to 3 days. Initially presented to her PCPs office today where her O2 sats were found to be 88%. Has had some chills but no [place] fever. Workup in the ER with negative respiratory panel. Chest imaging concerning for bronchopneumonia. New oxygen requirement with improvement on 2 to 3 L nasal cannula oxygen. Medicine consulted for admission for pneumonia with acute hypoxemic respiratory failure. On evaluation after arriving to the floor, patient is alert and oriented x 3. Stable on 3 L with O2 sats of 90%. Denies any chest pain. Having nonproductive cough at this time. Continues to smoke but has been smoking less over the past week. States she had COVID 3 years ago and required oxygen at that time as well. Denies any sleep apnea. Denies any orthopnea. [facility] Disclaimer: The information contained in this section may have been updated after the patient was seen, as this information can be updated by other users. Medical History Smoking greater than 30 pack years Dyspnea on exertion COPD mixed type Asthma Asthma Obesity hypoventilation syndrome Morbid obesity with BMI of 50.0-59.9, adult Heart failure with preserved ejection fraction Tobacco dependence History of seasonal allergies Bilateral knee pain COVID-19 Exposure to COVID-19 virus Pulmonary HTN Diastolic dysfunction CAPRI (obstructive sleep apnea) PAD (peripheral artery disease) Tobacco use HLD (hyperlipidemia) HTN (hypertension) Surgical History Hx of cholecystectomy History of endometrial ablation Hx of cardiac cath History of ankle surgery H/O tubal ligation History of H/O hernia repair Family History Father Cancer Coronary artery disease Hypertension Thyroid disorder Diabetes Mother Coronary artery disease Hypertension Thyroid disorder Diabetes Grandmother Diabetes Social History Smoking Status: Current every day smoker tobacco type: cigarettes packs per day: 27 second hand exposure: No alcohol intake: never substance use type: denies use current occupational status: other Travel in the last 8 weeks: None household members: spouse and children housing: house marital status: current occupational exposures/hazards: No caffeine: Yes Have you lived/traveled outside [place] in past 30 days?: No Contact w/someone who lives/traveled outside [place] past 30 days?: No Exposure to someone with infectious disease in past 14 days?: No Do you have a fever (greater than 100.4 F or 38 C)?: No Have you tested positive for COVID-19: No Exposed to someone with COVID-19 in past 14 days?: No Do you have a sore throat?: No Do you have a cough?: No Do you have any weakness?: No Do you have any diarrhea?: No Are you experiencing any unusual bleeding?: No Do you have any muscle aches/pain?: No Do you have any abdominal pain?: No Are you experiencing loss of taste or smell?: No Other Medical History Have you received the Flu Vaccine for this season: No Have you received the Pneumonia Vaccine: No Review of Systems Review of Systems Review of systems (narrative): 14 point review of systems performed, pertinent positives and negatives as per HPI Meds Home Medications and Allergies Home Medications ?Medication ?Instructions ?Recorded ?Confirmed ?Type aspirin 81 mg tablet,delayed 81 mg PO DAILY Heart health #90 03/16/23 03/27/24 Rx release (Adult Low Dose Aspirin) tabs azelastine 137 mcg (0.1 %) nasal 2 spray intranasal BIDP PRN 04/01/23 03/27/24 Rx spray Allergies 30 days #30 mL omeprazole 40 mg capsule,delayed See Rx Instructions .Route 04/01/23 03/27/24 Rx release .COMPLEX #30 caps mecobalamin (vitamin B12) 1,000 1,000 mcg PO DAILY #90 tabs 07/22/23 03/27/24 Rx mcg chewable tablet bisoprolol fumarate 10 mg tablet 10 mg PO DAILY Heart rate #90 tabs 09/14/23 03/27/24 Rx furosemide 40 mg tablet (Lasix) 40 mg PO MOWEFR Edema #90 tabs 09/14/23 03/27/24 Rx losartan 100 mg tablet 100 mg PO DAILY High blood 09/14/23 03/27/24 Rx pressure #90 tabs spironolactone 100 mg tablet 100 mg PO DAILY Edema #90 tabs 09/14/23 03/27/24 Rx (Aldactone) budesonide 160 mcg-glycopyr 9 2 inh inhalation BID 90 days #10.7 01/23/24 03/27/24 Rx mcg-formot 4.8 mcg/actuation HFA grams inhaler (Breztri Aerosphere) cetirizine 10 mg tablet See Rx Instructions .Route 01/23/24 03/27/24 Rx .COMPLEX #30 tabs fluticasone propionate 50 2 spray intranasal DAILY 90 days 01/23/24 03/27/24 Rx mcg/actuation nasal #16 grams spray,suspension (Flonase Allergy Relief) montelukast 10 mg tablet See Rx Instructions .Route 01/23/24 03/27/24 Rx .COMPLEX #90 tabs ipratropium 0.5 mg-albuterol 3 mg 3 ml inhalation Q6H PRN shortness 02/02/24 03/27/24 Rx (2.5 mg base)/3 mL nebulization of breath or wheezing #90 mL soln ergocalciferol (vitamin D2) 1,250 See Rx Instructions .Route 02/21/24 03/27/24 Rx mcg (50,000 unit) capsule (Vitamin .COMPLEX #5 caps D2) magnesium chloride 70 mg 70 mg PO HS Muscle cramps #30 tabs 02/21/24 03/27/24 Rx (magnesium chloride) tablet,delayed release levothyroxine 50 mcg tablet 50 mcg PO DAILY 30 days #40 tabs 02/22/24 03/27/24 Rx atorvastatin 80 mg tablet 80 mg PO DAILY #90 tabs 03/15/24 03/27/24 Rx albuterol sulfate 90 mcg/actuation See Rx Instructions .Route 03/20/24 03/27/24 Rx aerosol inhaler (Ventolin HFA) .COMPLEX #18 grams New Prescriptions to Start Prescriptions: Allergies Allergy/AdvReac Type Severity Reaction Status Date / Time isosorbide AdvReac Mild Verified 03/27/24 12:04 Exam Data for Last 24 hours Vital signs and Labs for Last 24 Hours: Temp Pulse Resp BP Pulse Ox O2 Del Method O2 Flow Rate 97.8 F 97 H 23 147/99 H 93 L Nasal Cannula 4 03/27/24 13:18 03/27/24 17:00 03/27/24 17:00 03/27/24 17:00 03/27/24 17:00 03/27/24 17:00 03/27/24 17:00 Laboratory Results - last 24 hr 03/27/24 13:24: SARS-CoV-2 (PCR) Not detected, Influenza A Untype (PCR) Not detected, Influenza Type B (PCR) Not detected 03/27/24 13:40: WBC 9.9, RBC 4.76, Hgb 14.7, Hct 42.7, MCV 89.7, MCH 30.9, MCHC 34.4, RDW 14.0, Plt Count 209, MPV 9.9, Neut % (Auto) 61.9, Lymph % (Auto) 31.3, [place] % (Auto) 4.8, Eos % (Auto) 0.8, Baso % (Auto) 0.2, Neut # (Auto) 6.1, Lymph # (Auto) 3.1, [place] # (Auto) 0.5, Eos # (Auto) 0.1, Baso # (Auto) 0.0, PT 10.7, INR 0.97, Sodium 141, Potassium 2.6 L*, Chloride 102, Carbon Dioxide 35 H, Anion Gap 6.6, BUN 7, Creatinine 0.70, Estimated Creat Clear 91, Estimated GFR 89, Est GFR ( Amer) 108, Glucose 84, Hemoglobin A1c 5.5, Calcium 7.9 L, Magnesium 1.5 L, Total Bilirubin 0.7, AST 31, ALT 24, Alkaline Phosphatase 105, Troponin I < 0.01, NT-Pro-B Natriuret Pep 188 H, Total Protein 7.2, Albumin 3.7, Globulin 3.5 H, Albumin/Globulin Ratio 1.1, Procalcitonin 0.086, TSH 3.44, Free T4 Index 4.2 L, Thyroxine (T4) 11.9 H, T3 Uptake 35 03/27/24 13:50: VBG pH 7.40, VBG pCO2 49.3, VBG pO2 34.9, VBG HCO3 30.1 H, VBG Total CO2 31.6 H, VBG O2 Saturation 68.8, VBG Base Excess 5.3 H, VBG Lactic Acid 2.3 H 03/27/24 15:40: Urine Color Yellow, Urine Appearance Clear, Urine pH 6.0, Ur Specific [place] 1.010, Urine Protein Negative, Urine Glucose (UA) Negative, Urine Ketones Negative, Urine Blood Negative, Urine Nitrate Negative, Urine Bilirubin Negative, Urine Urobilinogen 0.2, Ur Leukocyte Esterase Negative, Urine RBC None, Urine WBC 3-5, Ur Squamous Epith Cells Occasional, Urine Bacteria Trace I & O for Last 24 hours: Intake & Output 03/24/24 03/25/24 03/26/24 03/27/24 23:59 23:59 23:59 23:59 Weight 161.932 kg Constitutional Constitutional: no acute distress, morbidly obese, chronically ill appearing and cooperative *Routine HEENT Exam Head: Present normocephalic Eye: Present EOMI and PERRL ENT: Present mucous membranes moist *Routine Neck Exam Neck: Present supple and full ROM; Absent JVD *Routine Respiratory Exam Respiratory: Present rhonchi, wheezes, distant breath sounds, diminished air movement, normal respiratory effort and symmetric chest movement; Absent crackles *Routine Cardiovascular Exam Cardiovascular: Present RRR *Routine Abdominal Exam Abdominal: Present soft and normoactive bowel sounds; Absent tenderness *Routine Rectal Exam Rectal:: deferred *Routine Genitalia Exam Genitalia:: deferred *Routine Extremities Exam Extremities: Present full ROM; Absent cyanosis, clubbing or edema *Routine Skin Exam Skin: Present warm; Absent rash *Routine Neurological Exam Neurological: Present alert, oriented X3, moving all extremities, vision grossly intact, hearing grossly intact and normal speech; Absent sensory deficit or motor deficit Routine Psychiatric Exam Psychiatric: Present normal affect, normal thought process, cooperative, good insight and good judgment Assessment and Plan *Assessment and plan (1) Acute respiratory failure with hypoxia and hypercapnia: Status: Acute Category: Medical Code(s): J96.01 - Acute respiratory failure with hypoxia; J96.02 - Acute respiratory failure with hypercapnia (2) Acute on chronic heart failure with preserved ejection fraction: Status: Acute Category: Medical Code(s): I50.33 - Acute on chronic diastolic (congestive) heart failure (3) Morbid obesity with BMI of 50.0-59.9, adult: Problem Comment: Advised to follow-up with PCP for weight loss under medical supervision Status: Chronic Category: Medical Code(s): E66.01 - Morbid (severe) obesity due to excess calories; Z68.43 - Body mass index [BMI] 50.0-59.9, adult (4) Tobacco dependence: Status: Acute Category: Medical Code(s): F17.200 - Nicotine dependence, unspecified, uncomplicated (5) Hypocalcemia: Status: Acute Category: Medical Code(s): E83.51 - Hypocalcemia (6) Hypomagnesemia: Status: Acute Category: Medical Code(s): E83.42 - Hypomagnesemia (7) Hypokalemia: Status: Acute Category: Medical Code(s): E87.6 - Hypokalemia (8) Hypothyroidism: Problem Comment: Advised to follow-up with PCP to adjust current doses of levothyroxine Status: Chronic Qualifiers: Hypothyroidism type: acquired Qualified Code(s): E03.9 - Hypothyroidis m, unspecified Category: Medical Code(s): E03.9 - Hypothyroidism, unspecified (9) HLD (hyperlipidemia): Status: Chronic Qualifiers: Hyperlipidemia type: mixed hyperlipidemia Qualified Code(s): E78.2 - Mixed hyperlipidemia Category: Medical Code(s): E78.5 - Hyperlipidemia, unspecified (10) COPD mixed type: Problem Comment: Consider smoking cessation Status: Chronic Category: Medical Code(s): J44.9 - Chronic obstructive pulmonary disease, unspecified Plan 49-year-old female who presents to the emergency department with dyspnea. She has been assessed with OHS/CAPRI but does not use NIPPV therapy at home. Persistent cough over the past 2 weeks. Found to be hypoxic today on presentation to her PCP. Discussed case with ER physician, request admission for management of acute hypoxemic respiratory failure and bronchopneumonia. I agreed to admit for further management. Problems addressed as follows: Acute respiratory failure with hypoxia Bronchopneumonia history of OHS/CAPRI -Continue supplemental oxygen, goal saturation greater 90%, Currently on 3 L. -Continue DuoNebs every 6 hours scheduled along with budesonide every 12 scheduled. -Levofloxacin 750 mg daily x5 days -Pulmonology consulted to see the patient in the morning. -Per my review of chest CT, has thickening around bronchial [place]. No focal consolidation or lobar pneumonia Acute on chronic HFpEF Electrolyte disturbances - April 2022 echo reviewed with EF 55% and RVSP of 32, improved from echo in 2020 - Continue Bumex 1 mg IV twice daily, bisoprolol 10 mg daily, irbesartan 150 mg daily, spironolactone 100 mg daily - Electrolyte disturbances with hypocalcemia, hypomagnesemia, hypokalemia, replace aggressively per electrolyte protocol - Potassium 2.6, calcium 7.9, magnesium 1.5. Repeat CBC, CMP, magnesium ordered for the morning. Tobacco dependence Tobacco cessation education Nicotine replacement therapy 14mg patch daily PRN Hypothyroidism: continue home levothyroxine 50 mcg daily, TSH 3.44 Morbid obesity complicates all aspects of her care VTE prophylaxis: Lovenox 60 mg twice daily adjusted for BMI and kidney function CODE STATUS: Full code Cardiac diet
--- NOTE | 2024-03-27 17:29 | PC.NURSE ---
called report to vale alberts rn
[2024-03-27 18:00] LABS: Reflex Lactic Add Lactic Reflex
[2024-03-27] MEDS: IPRATROPIUM/ALBUTEROL 3 ML NEB IH (18:22)
[2024-03-27] MEDS: LEVOFLOXACIN/D5W 750 MG/150 ML 750 MG/150 ML PIGGYBACK 100 MG IV (18:48)
[2024-03-27 19:34] LABS: Troponin I < 0.01 ng/ml (0.00-0.034)
[2024-03-27 20:40] LABS: Troponin I < 0.01 ng/ml (0.00-0.034)
[2024-03-27 20:55] LABS: Reflex Lactic (2 hrs) Add Lactic Reflex
[2024-03-27] MEDS: ENOXAPARIN 60MG/0.6ML SYRINGE 60 MG SUBCUT (21:03)
[2024-03-27] MEDS: PANTOPRAZOLE 40MG TABLET 40 MG PO (21:03)
[2024-03-27 21:32] LABS: Lactic Acid Follow up (RFLX 2) 3.8 mmol/L (0.7-2.1)
[2024-03-27] MEDS: ACETAMINOPHEN 325MG TAB 650 MG PO (22:14)
[2024-03-28] VITALS (7 sets, daily range): BP systolic 127–145; BP diastolic 57–88; PULSE 68–93; RESP 17–20; TEMP 36.5–36.6; O2SAT 91–95; BMI 56.7
[2024-03-28] MEDS: IPRATROPIUM/ALBUTEROL 3 ML NEB IH ×3 (00:18→10:56)
--- NOTE | 2024-03-28 02:41 | PC.NURSE ---
PT IS RESTING IN BED. ALERT AND ORIENTED X4. EATING AND DRINKING WELL. O2 SATURATION HAS MAINTAINED 90-95% ON 3 L NC. PT GETS REALLY SOA WHEN AMBULATING TO THE BATHROOM. LUNG SOUNDS DIMINISHED WITH SCATTERED WHEEZES. ABDOMEN LARGE/SOFT/NON TENDER WITH ACTIVE BOWEL SOUNDS. WILL CONTINUE TO MONITOR.
--- NOTE | 2024-03-28 02:49 | EXP.EVENT.NO ---
Patient is eating and drinking well., Was still receiving IV fluids at 125., Going to put a stop to this at this time as the patient is not dehydrated probably some fluid overload at this time having some difficulty with keeping oxygenation. So IV fluids have been stopped
[2024-03-28] MEDS: BUDESONIDE 0.5MG/2ML NEB 0.5 MG IH (06:03)
[2024-03-28 06:56] LABS: Basophils % 0.1 % (0.1-2.0); Hematocrit 39.9 % (37.0-47.0); Hemoglobin 13.5 g/dL (12.2-16.2); Lymphocytes # 1.4 K/mm3 (0.7-4.5); Lymphocytes % 14.4 % (10-50); Mean Corpuscular HGB Conc 33.8 g/dL (31.8-35.4); Mean Corpuscular Hemoglobin 30.7 pg (27.0-31.2); Mean Corpuscular Volume 90.7 fl (81-99); Mean Platelet Volume 10.1 fl (7.4-10.4); Monocytes # 0.2 K/mm3 (0.1-1.0); Monocytes % 2.4 % (1.7-9.3); Neutrophils % 82.4 % (37.0-80.0); Platelet Count 225 K/mm3 (142-424); Red Cell Distribution Width 14.2 % (11.5-17.5); White Blood Count 9.7 K/mm3 (4.8-10.8)
[2024-03-28 07:12] LABS: Albumin Level 3.5 g/dl (3.5-5.0); Chloride 105 mmol/L (98-107); Sodium 141 mmol/L (136-145)
[2024-03-28 07:13] LABS: Potassium 4.2 mmoL/L (3.5-5.1)
[2024-03-28 07:15] LABS: Alanine Aminotransferase 27 U/L (12-78); Alkaline Phosphatase 94 U/L (38-126); Anion Gap 12.2 mEq/L (5-15); Aspartate Amino Transferase 27 U/L (14-36); Bilirubin,Total 0.3 mg/dl (0.2-1.3); Blood Urea Nitrogen 6 mg/dl (7-17); Carbon Dioxide 28 mmol/L (22.0-30.0); Creatinine Clearance Estimated 106 mL/min (50-200); Estimated Glomerular Filt Rate 106 ml/min (>60); GFR (African American) 129 ML/MIN (>60)
[2024-03-28 07:16] LABS: Albumin/Globulin Ratio 1.1 (1.1-1.8); Calcium 8.4 mg/dl (8.4-10.2); Globulin 3.2 g/dL (1.3-3.2); Glucose 184 mg/dl (74-100); Magnesium 1.9 mg/dl (1.6-2.3); Total Protein,Serum 6.7 g/dl (6.3-8.2)
--- NOTE | 2024-03-28 08:15 | P.DS_ITS ---
General Admission date:: 03/27/24 Discharge date: 03/28/24 HPI HPI HPI: Ms. Xie is a 49-year-old female with morbid obesity, history of CAD, hyperlipidemia, tobacco use disorder, COPD. States that for the past few weeks she has had shortness of breath and cough. Is gotten worse over the past 2 to 3 days. Cough initially was productive but is gotten better. Dyspnea is worsened over the past 2 to 3 days. Initially presented to her PCPs office today where her O2 sats were found to be 88%. Has had some chills but no [place] fever. Workup in the ER with negative respiratory panel. Chest imaging concerning for bronchopneumonia. New oxygen requirement with improvement on 2 to 3 L nasal cannula oxygen. Medicine consulted for admission for pneumonia with acute hypoxemic respiratory failure. On evaluation after arriving to the floor, patient is alert and oriented x 3. Stable on 3 L with O2 sats of 90%. Denies any chest pain. Having nonproductive cough at this time. Continues to smoke but has been smoking less over the past week. States she had COVID 3 years ago and required oxygen at that time as well. Denies any sleep apnea. Denies any orthopnea. Hospital Course Hospital Course Hospital Course: 49-year-old female who presents to the emergency department with dyspnea. She has been assessed with OHS/CAPRI but does not use NIPPV therapy at home. Persistent cough over the past 2 weeks. Found to be hypoxic on presentation to her PCP. Discussed case with ER physician, request admission for management of acute hypoxemic respiratory failure and bronchopneumonia. I agreed to admit for further management. Patient responded well to breathing treatments and antibiotics. Weaning oxygen. Necessitating 2 L continuous still at time of discharge however. Stable to discharge home to continue treatment as an outpatient. Problems addressed as follows: Problems addressed as follows: Acute respiratory failure with hypoxia Bronchopneumonia history of OHS/CAPRI -Admitted with new oxygen requirement and chest imaging concerning for thickening of the bronchial [place]. No focal consolidation or lobar pneumonia. Started on Levaquin 750 mg daily for 5 days. Initiated on DuoNebs every 6 hours along with budesonide every 12 hours. Supplemental oxygen required at 3 L initially. Able to wean to 2 L by time of discharge. Pulmonology consulted to evaluate patient in for establishment for follow-up. Recommend initiating Breztri. White count normal at 9.7. Stable to discharge home with continued oxygen therapy with plan for close follow-up with pulmonology. Acute on chronic HFpEF Electrolyte disturbances - April 2022 echo reviewed with EF 55% and RVSP of 32, improved from echo in 2020.initiated on Bumex 1 mg IV twice daily. Had good response. Continue bisoprolol 10 mg daily, irbesartan 150 mg daily, spironolactone 100 mg daily. Mild electrolyte disturbances at the time of admission. Saw improvement in electrolytes with potassium 4.2, magnesium 1.9. Kidney function normal with BUN 6, creatinine 0.6. Continue diuretic with Lasix per home regimen of 40 mg every other day. Tobacco dependence Tobacco cessation education. Nicotine replacement therapy 14mg patch daily PRN during admission. Hypothyroidism: continue home levothyroxine 50 mcg daily, TSH 3.44 Patient's oxygen saturation at rest is 86% on room air. Necessitating supplemental oxygen continuously at 2 L via nasal cannula Exam Data for Last 24 hours Vital signs and Labs for Last 24 Hours: Temp Pulse Resp BP Pulse Ox O2 Del Method O2 Flow Rate 97.9 F 68 18 142/76 H 95 Room Air 3 03/28/24 04:00 03/28/24 06:04 03/28/24 04:00 03/28/24 04:00 03/28/24 06:04 03/28/24 06:21 03/28/24 06:04 Laboratory Results - last 24 hr 03/27/24 13:24: Chlamy pneumoniae PCR Not detected, Adenovirus (PCR) Not detected, B. pertussis DNA (PCR) Not detected, Coronavirus OC43 (PCR) Not detected, Coronavirus HKU1 (PCR) Not detected, Coronavirus 229E (PCR) Not detected, SARS-CoV-2 (PCR) Not detected 03/27/24 13:24: SARS-CoV-2 (PCR) Not detected, Coronavirus NL63 (PCR) Not detected, Human Metapneumovir PCR Not detected, Influenza A (H1) PCR Not detected, Influ A (H1N1/09) PCR Not detected, Influenza A (H3) PCR Not detected, Influenza Type A (PCR) Not detected, Influenza A Untype (PCR) Not detected, Influenza Type B (PCR) Not detected 03/27/24 13:24: Influenza Type B (PCR) Not detected, M. pneumoniae (PCR) Not detected, Parainfluenza 1 (PCR) Not detected, Parainfluenza 2 (PCR) Not detected, Parainfluenza 3 (PCR) Not detected, Parainfluenza 4 (PCR) Not detected, RSV (PCR) Not detected, Entero/Rhino (PCR) Not detected 03/27/24 13:40: WBC 9.9, RBC 4.76, Hgb 14.7, Hct 42.7, MCV 89.7, MCH 30.9, MCHC 34.4, RDW 14.0, Plt Count 209, MPV 9.9, Neut % (Auto) 61.9, Lymph % (Auto) 31.3, [place] % (Auto) 4.8, Eos % (Auto) 0.8, Baso % (Auto) 0.2, Neut # (Auto) 6.1, Lymph # (Auto) 3.1, [place] # (Auto) 0.5, Eos # (Auto) 0.1, Baso # (Auto) 0.0, PT 10.7, INR 0.97, Sodium 141, Potassium 2.6 L*, Chloride 102, Carbon Dioxide 35 H, Anion Gap 6.6, BUN 7, Creatinine 0.70, Estimated Creat Clear 91, Estimated GFR 89, Est GFR ( Amer) 108, Glucose 84, Hemoglobin A1c 5.5, Calcium 7.9 L, Magnesium 1.5 L, Total Bilirubin 0.7, AST 31, ALT 24, Alkaline Phosphatase 105, Troponin I < 0.01, NT-Pro-B Natriuret Pep 188 H, Total Protein 7.2, Albumin 3.7, Globulin 3.5 H, Albumin/Globulin Ratio 1.1, Procalcitonin 0.086, TSH 3.44, Free T4 Index 4.2 L, Thyroxine (T4) 11.9 H, T3 Uptake 35 03/27/24 13:50: VBG pH 7.40, VBG pCO2 49.3, VBG pO2 34.9, VBG HCO3 30.1 H, VBG Total CO2 31.6 H, VBG O2 Saturation 68.8, VBG Base Excess 5.3 H, VBG Lactic Acid 2.3 H 03/27/24 15:40: Urine Color Yellow, Urine Appearance Clear, Urine pH 6.0, Ur Specific [place] 1.010, Urine Protein Negative, Urine Glucose (UA) Negative, Urine Ketones Negative, Urine Blood Negative, Urine Nitrate Negative, Urine Bilirubin Negative, Urine Urobilinogen 0.2, Ur Leukocyte Esterase Negative, Urine RBC None, Urine WBC 3-5, Ur Squamous Epith Cells Occasional, Urine Bacteria Trace 03/27/24 18:03: Lactate 4.0 H, Troponin I < 0.01 03/27/24 19:58: Troponin I < 0.01 03/27/24 21:13: Lactate 3.8 H 03/28/24 06:11: WBC 9.7, RBC 4.40, Hgb 13.5, Hct 39.9, MCV 90.7, MCH 30.7, MCHC 33.8, RDW 14.2, Plt Count 225, MPV 10.1, Neut % (Auto) 82.4 H, Lymph % (Auto) 14.4, [place] % (Auto) 2.4, Eos % (Auto) 0.0 L, Baso % (Auto) 0.1, Neut # (Auto) 8.0 H, Lymph # (Auto) 1.4, [place] # (Auto) 0.2, Eos # (Auto) 0.0, Baso # (Auto) 0.0, Sodium 141, Potassium 4.2 D, Chloride 105, Carbon Dioxide 28, Anion Gap 12.2, BUN 6 L, Creatinine 0.60, Estimated Creat Clear 106, Estimated GFR 106, Est GFR ( Amer) 129, Glucose 184 H D, Calcium 8.4, Magnesium 1.9 D, Total Bilirubin 0.3, AST 27, ALT 27, Alkaline Phosphatase 94, Total Protein 6.7, Albumin 3.5, Globulin 3.2, Albumin/Globulin Ratio 1.1 I & O for Last 24 hours: Intake & Output 03/25/24 03/26/24 03/27/24 03/28/24 23:59 23:59 23:59 23:59 Output Total 0 / 0 0 / 0 Balance 0 / 0 0 / 0 Weight 158.757 kg 160.118 kg Constitutional Constitutional: no acute distress, morbidly obese, chronically ill appearing and cooperative *Routine HEENT Exam Head: Present normocephalic Eye: Present EOMI and PERRL ENT: Present mucous membranes moist *Routine Neck Exam Neck: Present supple; Absent lymphadenopathy *Routine Respiratory Exam Respiratory: Present wheezes and distant breath sounds; Absent rhonchi or crackles *Routine Cardiovascular Exam Cardiovascular: Present RRR *Routine Abdominal Exam Abdominal: Present soft and normoactive bowel sounds; Absent tenderness *Routine Rectal Exam Patient deferred: visual exam *Routine Exam Patient deferred: external exam *Routine Extremities Exam Extremities: Absent cyanosis, clubbing or edema *Routine Skin Exam Skin: Present intact and warm; Absent rash *Routine Neurological Exam Neurological: Present alert, oriented X3 and moving all extremities; Absent altered mental status Results Data Completed and Pending Labs on day of discharge: Labs from last 24 hours 03/28/24 03/27/24 03/27/24 06:11 21:13 19:58 WBC 9.7 RBC 4.40 Hgb 13.5 Hct 39.9 MCV 90.7 MCH 30.7 MCHC 33.8 RDW 14.2 Plt Count 225 MPV 10.1 Neut % (Auto) 82.4 H Lymph % (Auto) 14.4 [place] % (Auto) 2.4 Eos % (Auto) 0.0 L Baso % (Auto) 0.1 Neut # (Auto) 8.0 H Lymph # (Auto) 1.4 [place] # (Auto) 0.2 Eos # (Auto) 0.0 Baso # (Auto) 0.0 PT INR VBG pH VBG pCO2 VBG pO2 VBG HCO3 VBG Total CO2 VBG O2 Saturation VBG Base Excess VBG Lactic Acid Sodium 141 Potassium 4.2 D Chloride 105 Carbon Dioxide 28 Anion Gap 12.2 BUN 6 L Creatinine 0.60 Estimated Creat Clear 106 Estimated GFR 106 Est GFR ( Amer) 129 Glucose 184 H D Hemoglobin A1c Lactate 3.8 H Calcium 8.4 Magnesium 1.9 D Total Bilirubin 0.3 AST 27 ALT 27 Alkaline Phosphatase 94 Troponin I < 0.01 NT-Pro-B Natriuret Pep Total Protein 6.7 Albumin 3.5 Globulin 3.2 Albumin/Globulin Ratio 1.1 Procalcitonin TSH Free T4 Index Thyroxine (T4) T3 Uptake Urine Color Urine Appearance Urine pH Ur Specific [place] Urine Protein Urine Glucose (UA) Urine Ketones Urine Blood Urine Nitrate Urine Bilirubin Urine Urobilinogen Ur Leukocyte Esterase Urine RBC Urine WBC Ur Squamous Epith Cells Urine Bacteria Chlamy pneumoniae PCR Adenovirus (PCR) B. pertussis DNA (PCR) Coronavirus OC43 (PCR) Coronavirus HKU1 (PCR) Coronavirus 229E (PCR) SARS-CoV-2 (PCR) Coronavirus NL63 (PCR) Human Metapneumovir PCR Influenza A (H1) PCR Influ A (H1N1) PCR Influenza A (H3) PCR Influenza Type A (PCR) Influenza A Untype (PCR) Influenza Type B (PCR) M. pneumoniae (PCR) Parainfluenza 1 (PCR) Parainfluenza 2 (PCR) Parainfluenza 3 (PCR) Parainfluenza 4 (PCR) RSV (PCR) Entero/Rhino (PCR) 03/27/24 03/27/24 03/27/24 18:03 15:40 13:50 WBC RBC Hgb Hct MCV MCH MCHC RDW Plt Count MPV Neut % (Auto) Lymph % (Auto) [place] % (Auto) Eos % (Auto) Baso % (Auto) Neut # (Auto) Lymph # (Auto) [place] # (Auto) Eos # (Auto) Baso # (Auto) PT INR VBG pH 7.40 VBG pCO2 49.3 VBG pO2 34.9 VBG HCO3 30.1 H VBG Total CO2 31.6 H VBG O2 Saturation 68.8 VBG Base Excess 5.3 H VBG Lactic Acid 2.3 H Sodium Potassium Chloride Carbon Dioxide Anion Gap BUN Creatinine Estimated Creat Clear Estimated GFR Est GFR ( Amer) Glucose Hemoglobin A1c Lactate 4.0 H Calcium Magnesium Total Bilirubin AST ALT Alkaline Phosphatase Troponin I < 0.01 NT-Pro-B Natriuret Pep Total Protein Albumin Globulin Albumin/Globulin Ratio Procalcitonin TSH Free T4 Index Thyroxine (T4) T3 Uptake Urine Color Yellow Urine Appearance Clear Urine pH 6.0 Ur Specific [place] 1.010 Urine Protein Negative Urine Glucose (UA) Negative Urine Ketones Negative Urine Blood Negative Urine Nitrate Negative Urine Bilirubin Negative Urine Urobilinogen 0.2 Ur Leukocyte Esterase Negative Urine RBC None Urine WBC 3-5 Ur Squamous Epith Cells Occasional Urine Bacteria Trace Chlamy pneumoniae PCR Adenovirus (PCR) B. pertussis DNA (PCR) Coronavirus OC43 (PCR) Coronavirus HKU1 (PCR) Coronavirus 229E (PCR) SARS-CoV-2 (PCR) Coronavirus NL63 (PCR) Human Metapneumovir PCR Influenza A (H1) PCR Influ A (H1N1) PCR Influenza A (H3) PCR Influenza Type A (PCR) Influenza A Untype (PCR) Influenza Type B (PCR) M. pneumoniae (PCR) Parainfluenza 1 (PCR) Parainfluenza 2 (PCR) Parainfluenza 3 (PCR) Parainfluenza 4 (PCR) RSV (PCR) Entero/Rhino (PCR) 03/27/24 03/27/24 03/27/24 13:40 13:24 13:24 WBC 9.9 RBC 4.76 Hgb 14.7 Hct 42.7 MCV 89.7 MCH 30.9 MCHC 34.4 RDW 14.0 Plt Count 209 MPV 9.9 Neut % (Auto) 61.9 Lymph % (Auto) 31.3 [place] % (Auto) 4.8 Eos % (Auto) 0.8 Baso % (Auto) 0.2 Neut # (Auto) 6.1 Lymph # (Auto) 3.1 [place] # (Auto) 0.5 Eos # (Auto) 0.1 Baso # (Auto) 0.0 PT 10.7 INR 0.97 VBG pH VBG pCO2 VBG pO2 VBG HCO3 VBG Total CO2 VBG O2 Saturation VBG Base Excess VBG Lactic Acid Sodium 141 Potassium 2.6 L* Chloride 102 Carbon Dioxide 35 H Anion Gap 6.6 BUN 7 Creatinine 0.70 Estimated Creat Clear 91 Estimated GFR 89 Est GFR ( Amer) 108 Glucose 84 Hemoglobin A1c 5.5 Lactate Calcium 7.9 L Magnesium 1.5 L Total Bilirubin 0.7 AST 31 ALT 24 Alkaline Phosphatase 105 Troponin I < 0.01 NT-Pro-B Natriuret Pep 188 H Total Protein 7.2 Albumin 3.7 Globulin 3.5 H Albumin/Globulin Ratio 1.1 Procalcitonin 0.086 TSH 3.44 Free T4 Index 4.2 L Thyroxine (T4) 11.9 H T3 Uptake 35 Urine Color Urine Appearance Urine pH Ur Specific [place] Urine Protein Urine Glucose (UA) Urine Ketones Urine Blood Urine Nitrate Urine Bilirubin Urine Urobilinogen Ur Leukocyte Esterase Urine RBC Urine WBC Ur Squamous Epith Cells Urine Bacteria Chlamy pneumoniae PCR Adenovirus (PCR) B. pertussis DNA (PCR) Coronavirus OC43 (PCR) Coronavirus HKU1 (PCR) Coronavirus 229E (PCR) SARS-CoV-2 (PCR) Not detected Coronavirus NL63 (PCR) Not detected Human Metapneumovir PCR Not detected Influenza A (H1) PCR Not detected Influ A (H1N1) PCR Not detected Influenza A (H3) PCR Not detected Influenza Type A (PCR) Not detected Influenza A Untype (PCR) Not detected Influenza Type B (PCR) Not detected Not detected M. pneumoniae (PCR) Not detected Parainfluenza 1 (PCR) Not detected Parainfluenza 2 (PCR) Not detected Parainfluenza 3 (PCR) Not detected Parainfluenza 4 (PCR) Not detected RSV (PCR) Not detected Entero/Rhino (PCR) Not detected 03/27/24 13:24 WBC RBC Hgb Hct MCV MCH MCHC RDW Plt Count MPV Neut % (Auto) Lymph % (Auto) [place] % (Auto) Eos % (Auto) Baso % (Auto) Neut # (Auto) Lymph # (Auto) [place] # (Auto) Eos # (Auto) Baso # (Auto) PT INR VBG pH VBG pCO2 VBG pO2 VBG HCO3 VBG Total CO2 VBG O2 Saturation VBG Base Excess VBG Lactic Acid Sodium Potassium Chloride Carbon Dioxide Anion Gap BUN Creatinine Estimated Creat Clear Estimated GFR Est GFR ( Amer) Glucose Hemoglobin A1c Lactate Calcium Magnesium Total Bilirubin AST ALT Alkaline Phosphatase Troponin I NT-Pro-B Natriuret Pep Total Protein Albumin Globulin Albumin/Globulin Ratio Procalcitonin TSH Free T4 Index Thyroxine (T4) T3 Uptake Urine Color Urine Appearance Urine pH Ur Specific [place] Urine Protein Urine Glucose (UA) Urine Ketones Urine Blood Urine Nitrate Urine Bilirubin Urine Urobilinogen Ur Leukocyte Esterase Urine RBC Urine WBC Ur Squamous Epith Cells Urine Bacteria Chlamy pneumoniae PCR Not detected Adenovirus (PCR) Not detected B. pertussis DNA (PCR) Not detected Coronavirus OC43 (PCR) Not detected Coronavirus HKU1 (PCR) Not detected Coronavirus 229E (PCR) Not detected SARS-CoV-2 (PCR) Not detected Coronavirus NL63 (PCR) Human Metapneumovir PCR Influenza A (H1) PCR Influ A (H1N1) PCR Influenza A (H3) PCR Influenza Type A (PCR) Influenza A Untype (PCR) Influenza Type B (PCR) M. pneumoniae (PCR) Parainfluenza 1 (PCR) Parainfluenza 2 (PCR) Parainfluenza 3 (PCR) Parainfluenza 4 (PCR) RSV (PCR) Entero/Rhino (PCR) DS: Diagnosis Discharge Diagnosis (1) Acute respiratory failure with hypoxia and hypercapnia: Status: Acute Code(s): J96.01 - Acute respiratory failure with hypoxia; J96.02 - Acute respiratory failure with hypercapnia (2) Acute on chronic heart failure with preserved ejection fraction: Status: Acute Code(s): I50.33 - Acute on chronic diastolic (congestive) heart failure (3) Morbid obesity with BMI of 50.0-59.9, adult: Status: Chronic Code(s): E66.01 - Morbid (severe) obesity due to excess calories; Z68.43 - Body mass index [BMI] 50.0-59.9, adult Problem details: Advised to follow-up with PCP for weight loss under medical supervision (4) Tobacco dependence: Status: Acute Code(s): F17.200 - Nicotine dependence, unspecified, uncomplicated (5) Hypocalcemia: Status: Acute Code(s): E83.51 - Hypocalcemia (6) Hypomagnesemia: Status: Acute Code(s): E83.42 - Hypomagnesemia (7) Hypokalemia: Status: Acute Code(s): E87.6 - Hypokalemia (8) Hypothyroidism: Status: Chronic Code(s): E03.9 - Hypothyroidism, unspecified Qualifiers: Hypothyroidism type: acquired Qualified Code(s): E03.9 - Hypothyroidism, unspecified Problem details: Advised to follow-up with PCP to adjust current doses of levothyroxine (9) HLD (hyperlipidemia): Status: Chronic Code(s): E78.5 - Hyperlipidemia, unspecified Qualifiers: Hyperlipidemia type: mixed hyperlipidemia Qualified Code(s): E78.2 - Mixed hyperlipidemia (10) COPD mixed type: Status: Chronic Code(s): J44.9 - Chronic obstructive pulmonary disease, unspecified Problem details: Consider smoking cessation Meds Home Medications and Allergies Home Medications ?Medication ?Instructions ?Recorded ?Confirmed ?Type azelastine 137 mcg (0.1 %) nasal 2 spray intranasal BIDP PRN 04/01/23 03/27/24 Rx spray Allergies 30 days #30 mL furosemide 40 mg tablet (Lasix) 40 mg PO MOWEFR Edema #90 tabs 09/14/23 03/27/24 Rx budesonide 160 mcg-glycopyr 9 2 inh inhalation BID 90 days #10.7 01/23/24 03/27/24 Rx mcg-formot 4.8 mcg/actuation HFA grams inhaler (Breztri Aerosphere) fluticasone propionate 50 2 spray intranasal DAILY 90 days 01/23/24 03/27/24 Rx mcg/actuation nasal #16 grams spray,suspension (Flonase Allergy Relief) ipratropium 0.5 mg-albuterol 3 mg 3 ml inhalation Q6H PRN shortness 02/02/24 03/27/24 Rx (2.5 mg base)/3 mL nebulization of breath or wheezing #90 mL soln levothyroxine 50 mcg tablet 50 mcg PO DAILY 30 days #40 tabs 02/22/24 03/27/24 Rx albuterol sulfate 90 mcg/actuation 2 puff inhalation Q6HP PRN 03/28/24 03/28/24 History aerosol inhaler (Ventolin HFA) Shortness Of Breath aspirin 81 mg tablet,delayed 81 mg PO DAILY 03/28/24 03/27/24 History release (Adult Low Dose Aspirin) atorvastatin 80 mg tablet 80 mg PO HS 03/28/24 03/28/24 History bisoprolol fumarate 10 mg tablet 10 mg PO DAILY 03/28/24 03/27/24 History cetirizine 10 mg tablet 10 mg PO DAILY 03/28/24 03/28/24 History cyanocobalamin (vitamin B-12) 1,000 mcg PO DAILY 03/28/24 03/28/24 History 1,000 mcg tablet ergocalciferol (vitamin D2) 1,250 1,250 mcg PO WEEKLY 03/28/24 03/28/24 History mcg (50,000 unit) capsule (Vitamin D2) levofloxacin 750 mg tablet 750 mg PO 1100 4 days #4 tabs 03/28/24 Rx losartan 100 mg tablet 100 mg PO DAILY 03/28/24 03/27/24 History magnesium chloride 64 mg 64 mg PO DAILY 03/28/24 03/28/24 History (magnesium chloride) tablet,delayed release montelukast 10 mg tablet 10 mg PO HS 03/28/24 03/28/24 History omeprazole 40 mg capsule,delayed 40 mg PO DAILY 03/28/24 03/28/24 History release prednisone 20 mg tablet 40 mg (2 x 20 mg) PO DAILY 4 days 03/28/24 Rx #8 tabs spironolactone 100 mg tablet 100 mg PO DAILY 03/28/24 03/27/24 History (Aldactone) New Prescriptions to Start Prescriptions: levofloxacin Boaz Viera prednisone Boaz Viera Allergies Allergy/AdvReac Type Severity Reaction Status Date / Time isosorbide AdvReac Mild Verified 03/27/24 12:04 Discharge Plan Disposition Patient Disposition: Home, Self-Care Condition: Fair Follow up Plan Follow up with: Marlo López MD [Primary Care Provider] - 04/03/24 1:30 pm Luma Velez MD [Physician] - 04/19/24 11:40 am Prescriptions/Medication Reconciliation: New levofloxacin 750 mg Tablet 750 mg PO 1100 4 Days Qty: 4 0RF prednisone 20 mg tablet 40 mg PO DAILY 4 Days Qty: 8 0RF Continued ipratropium-albuterol 0.5 mg-3 mg(2.5 mg base)/3 mL solution for nebulization 3 ml inhalation Q6H PRN (Reason: shortness of breath or wheezing) Qty: 90 3RF azelastine 137 mcg (0.1 %) aerosol,spray 2 spray intranasal BIDP PRN (Reason: Allergies) 30 Days Qty: 30 2RF Rx Instructions: into both nostrils furosemide [Lasix] 40 mg tablet 40 mg PO MOWEFR Qty: 90 3RF Breztri Aerosphere 160-9-4.8 mcg/actuation HFA aerosol inhaler 2 inh inhalation BID 90 Days Qty: 10.7 3RF fluticasone propionate [Flonase Allergy Relief] 50 mcg/actuation spr ay,suspension 2 spray intranasal DAILY 90 Days Qty: 16 2RF Rx Instructions: administer into each nostril levothyroxine 50 mcg tablet 50 mcg PO DAILY 30 Days Qty: 40 2RF Rx Instructions: (2) tablets on Tue and (1) tablet 5 days a week cetirizine 10 mg tablet 10 mg PO DAILY cyanocobalamin (vitamin B-12) 1,000 mcg tablet 1,000 mcg PO DAILY omeprazole 40 mg capsule,delayed release(DR/EC) 40 mg PO DAILY ergocalciferol (vitamin D2) [Vitamin D2] 1,250 mcg (50,000 unit) capsule 1,250 mcg PO WEEKLY albuterol sulfate [Ventolin HFA] 90 mcg/actuation HFA aerosol inhaler 2 puff INHALATION Q6HP PRN (Reason: Shortness Of Breath) magnesium chloride 64 mg tablet,delayed release (DR/EC) 64 mg PO DAILY atorvastatin 80 mg tablet 80 mg PO HS Rx Instructions: nightly spironolactone [Aldactone] 100 mg tablet 100 mg PO DAILY aspirin [Adult Low Dose Aspirin] 81 mg tablet,delayed release (DR/EC) 81 mg PO DAILY Rx Instructions: daily bisoprolol fumarate 10 mg tablet 10 mg PO DAILY montelukast 10 mg tablet 10 mg PO HS losartan 100 mg tablet 100 mg PO DAILY Other Ambulatory Orders: Home Medical Equipment (Routine) Location: None Selected Ordered By: Boaz Viera Problem Reconciliation Problems Reviewed?: Yes Patient Discharge Instructions ACTIVITY: Continue current activity DIET: continue same diet Patient Instructions: DI for Pneumonia -- Adult, DI for Hypokalemia, DI for Hypomagnesemia Print Language: [place] Providers Primary Care Provider: Marol López Admit Provider: Boaz Viera Attending Provider: Boaz Viera
--- NOTE | 2024-03-28 09:37 | HMH.PHAINT1 ---
Pharmacy Intervention Comments: home medication list verified using list from outpatient pharmacy and office notes
[2024-03-28] MEDS: BISOPROLOL 5MG TABLET 10 MG PO (09:51)
[2024-03-28] MEDS: BUMETANIDE 1MG/4ML VIAL 1 MG IV (09:51)
[2024-03-28] MEDS: LEVOTHYROXINE 50MCG (0.05MG) TAB 50 MCG PO (09:51)
[2024-03-28] MEDS: ASPIRIN EC 81MG TABLET 81 MG PO (09:51)
[2024-03-28] MEDS: IRBESARTAN 150MG TAB 150 MG PO (09:51)
[2024-03-28] MEDS: SPIRONOLACTONE 25MG TABLET 100 MG PO (09:51)
[2024-03-28] MEDS: ENOXAPARIN 60MG/0.6ML SYRINGE 60 MG SUBCUT (09:52)
[2024-03-28] MEDS: levoFLOXacin 750 MG TABLET PO (12:02)
--- NOTE | 2024-03-28 12:22 | PC.NURSE ---
81% on room air while walking.
--- NOTE | 2024-03-28 12:42 | PC.NURSE ---
86% on RA at rest.
--- NOTE | 2024-03-28 14:31 | CARE MANAGER ---
Patient agreeable to [facility] for Oxygen. Order sent. [facility] will deliver shortly.
--- NOTE | 2024-03-28 18:07 | CA_ITS ---
APPROVED REPORT EXAM: Comprehensive 2D, Doppler, and color-flow Echocardiogram Knowledge Engineer: Sarah Dobbins CRT Ht: 5 ft 6 in Wt: 357lbs BSA: 2.56 BP: 147/89 mmHg Indications: Congestive Heart Failure, COPD, Shortness of Breath, Peripheral Edema, Hyperlipidemia, Hypertension/HDD, Smoker 2D Dimensions LA Volume 26.90 mL M-Mode Dimensions RVDd 3.38 cm (0.9-2.6) LA Diam 2.90 cm (1.9-4.0) LVDd 4.03 cm (3.5-5.7) LVDs 3.00 cm (3.5-5.7) IVSd 1.90 cm (0.6-1.1) PWd 0.91 cm (0.6-1.1) EF (Teich) 50.90% FS 25.60% EDV (Teich) 71.30 mL TAPSE 2.59 (<1.7) ESV (Teich) 35.00 mL LV Diastology E Decel Time 157 (160-240 msec) E/A Ratio 0.83 MED A' 16.40 cm/s LAT A' 16.60 cm/s Aortic Valve AO Peak GR. 8.90 mmHg Mitral Valve MV A Velocity 93.0 (40-130 cm/s) E/A Ratio 0.83 Pulmonary Valve PV Peak Velocity 80.0 (50-150 cm/s) Tricuspid Valve TR P. Velocity 333.00 cm/s RAP Estimate 10.00 mmHg RVSP 54.30 mmHg Left Ventricle The left ventricle is normal size. The left ventricular systolic function is normal. The left ventricular ejection fraction is within the normal range. There is increased LV wall thickness. There is normal LV segmental wall motion. Diastolic function is indeterminate. LVEF is 60%. Right Ventricle Right ventricle is mildly dilated. The right ventricular systolic function is normal. Atria Left atrium is mildly dilated. Right atrium is mildly dilated. There is no Doppler evidence of interatrial shunt. Aortic Valve The aortic valve is mildly thickened. There is no aortic valvular stenosis. No aortic regurgitation is present. Mitral Valve The mitral valve is normal in structure. No evidence of mitral valve stenosis. Trace mitral regurgitation. Tricuspid Valve Tricuspid valve is grossly normal in structure and function. Mild tricuspid regurgitation. RVSP is 30-35 mmHg. Pulmonic Valve The pulmonary valve is normal in structure. Trace pulmonic regurgitation. Great Vessels The aortic root is normal in size. IVC is normal in size and collapses >50% with inspiration. Pericardium There is no pericardial effusion. Other Information Study Quality: Fair Conclusion Normal biventricular systolic function. Mild RV dilation. Mild biatrial dilation. Mild TR. Electronically signed by : Esmer Forrester MD 03/28/2024 12:29:55
--- NOTE | 2024-03-29 10:44 | SW/DCPLANNER ---
Spoke with patient on the phone. Patient stated that she is doing well. Patient stated that she is aware of her upcoming appointments. Patient stated that she got her medicine brought to her from clinic pharmacy. Patient stated that she has no concern or questions at this time. Antonio Peter
== END 2024-03-28 15:00 | disposition home or self-care (01) ==
LOC: ER 17:03 → 2ND 17:30
PROVIDERS: Physician Assistant; Admitting Provider Internal Medicine Adolescent Medicine; Emergency Provider Emergency Medicine; PCP Family Medicine; Visit Provider Internal Medicine Adolescent Medicine
DX: J96.01 Acute respiratory failure with hypoxia (principal); J18.0 Bronchopneumonia, unspecified organism; E66.2 Morbid (severe) obesity with alveolar hypoventilation; Z68.43 Body mass index [BMI] 50.0-59.9, adult; F17.210 Nicotine dependence, cigarettes, uncomplicated; I25.10 Atherosclerotic heart disease of native coronary artery without angina pectoris; I11.0 Hypertensive heart disease with heart failure; I50.33 Acute on chronic diastolic (congestive) heart failure; Z79.899 Other long term (current) drug therapy; E83.51 Hypocalcemia; E83.42 Hypomagnesemia; E87.6 Hypokalemia; E03.9 Hypothyroidism, unspecified; E78.2 Mixed hyperlipidemia
CPT/HCPCS: 36415; 71275; 80053; 81001; 82803; 83036; 83605; 83735; 83880; 84145; 84436; 84443; 84479; 84484; 85025; 85610; 87633; 87636; 93306; 94640; 94760; 99291; G0378; J1100; J1650; J1939; J1956; J3475; J7030; J7620; Q9967

== ENCOUNTER 2024-05-11 15:14 | Outpatient (CLI) | payer OTHER, SELFPAY ==
--- NOTE | 2024-05-11 17:00 | MM_ITS ---
PROCEDURE INFORMATION: Exam: MG Bilateral Screening 3D Mammography Exam date and time: 05/11/2024 3:30 PM Age: 49 years old Clinical indication: Screening exam. TECHNIQUE: Imaging protocol: Bilateral Screening tomosynthesis and 2D mammography including computer-aided detection (CAD) when performed. COMPARISON: 1. MG MM DIG SCREENING MAMM BI W/CAD 04/07/2023 12:55 PM 2. MG MM DIG SCREENING MAMM BI W/CAD 04/06/2022 2:18 PM FINDINGS: MAMMOGRAPHY: Breast composition: There are scattered areas of fibroglandular density. Mass: No suspicious masses. Architectural distortion: None. Calcifications: No suspicious calcifications. Asymmetric density: None. Skin thickening: None. Axillary adenopathy: None. IMPRESSION: No mammographic evidence of malignancy. Annual screening is recommended unless otherwise clinically indicated. ASSESSMENT: BI-RADS Category 1: Negative.
== END 2024-05-11 23:59 | disposition home or self-care (01) ==
LOC: RAD 15:14
PROVIDERS: PCP Family Medicine; Visit Provider Family Medicine
DX: Z12.31 Encounter for screening mammogram for malignant neoplasm of breast (principal)
CPT/HCPCS: 77063; 77067

== ENCOUNTER 2024-06-04 09:00 | Outpatient (RCR) | payer OTHER, SELFPAY | END 2024-06-04 23:59 | disposition home or self-care (01) | LOC: PT 09:00 | PROVIDERS: PCP Family Medicine; Visit Provider Orthopaedic Surgery Adult Reconstructive Orthopaedic Surgery | DX: M75.81 Other shoulder lesions, right shoulder (principal); M25.511 Pain in right shoulder | CPT/HCPCS: 97110; 97163; 97530 ==

== ENCOUNTER 2024-06-22 09:00 | Outpatient (RCR) | payer OTHER, SELFPAY | END 2024-06-28 10:07 | disposition home or self-care (01) | LOC: PT 09:00 | PROVIDERS: PCP Family Medicine; Visit Provider Orthopaedic Surgery Adult Reconstructive Orthopaedic Surgery | DX: M19.011 Primary osteoarthritis, right shoulder (principal); M75.81 Other shoulder lesions, right shoulder | CPT/HCPCS: 20560; 97014; 97035; 97110; 97530; G0283 ==

== ENCOUNTER 2024-09-12 09:41 | Outpatient (CLI) | payer OTHER, SELFPAY ==
[2024-09-12 10:22] LABS: Hematocrit 46.5 % (37.0-47.0); Hemoglobin 15.7 g/dL (12.2-16.2); Immature Granulocytes % 0.3 %; Mean Corpuscular HGB Conc 33.8 g/dL (31.8-35.4); Mean Corpuscular Hemoglobin 30.7 pg (27.0-31.2); Mean Corpuscular Volume 90.8 fl (81-99); Nucleated Red Blood Cells % 0 %; Platelet Count 201 K/mm3 (142-424); Red Blood Count 5.12 M/mm3 (4.20-5.40); Red Cell Distribution Width-SD 43.6 fL; White Blood Count 10.3 K/mm3 (4.8-10.8)
[2024-09-12 10:45] LABS: Alanine Aminotransferase 18 U/L (12-78); Albumin Level 3.9 g/dl (3.5-5.0); Anion Gap 13.3 mEq/L (5-15); Aspartate Amino Transferase 25 U/L (14-36); Bilirubin,Direct 0.1 mg/dl (0.0-0.4); Bilirubin,Indirect 0.7 mg/dL (0.0-0.9); Bilirubin,Total 0.8 mg/dl (0.2-1.3); Bilirubin,Unconjugated 0.7 mg/dL (0.0-1.1); Blood Urea Nitrogen 9 mg/dl (7-17); Calcium 8.7 mg/dl (8.4-10.2); Carbon Dioxide 25 mmol/L (22.0-30.0); Chloride 106 mmol/L (98-107); Cholesterol 231 mg/dl (140-200); Creatinine,Serum 0.50 mg/dl (0.52-1.04); Estimated Glomerular Filt Rate 131 ml/min (>60); GFR (African American) 159 ML/MIN (>60); Glucose 87 mg/dl (74-100); Magnesium 1.9 mg/dl (1.6-2.3); Potassium 4.3 mmoL/L (3.5-5.1); Sodium 140 mmol/L (136-145); Total Protein,Serum 6.7 g/dl (6.3-8.2); Triglycerides 148 mg/dl (30-150)
[2024-09-12 10:46] LABS: Alkaline Phosphatase 102 U/L (38-126); HDL Cholesterol 43 mg/dl (40-60)
[2024-09-12 11:00] LABS: Free T4 (Free Thyroxine) 0.98 ng/dl (0.78-2.19)
[2024-09-12 11:31] LABS: Thyroid Stimulating Hormone 5.13 uIU/mL (0.465-4.68)
[2024-09-12 11:38] LABS: Hemoglobin A1C 5.2 % (4.0-6.0)
== END 2024-09-12 23:59 | disposition home or self-care (01) ==
LOC: LAB 09:42
PROVIDERS: PCP Family Medicine; Visit Provider Nurse Practitioner
DX: E78.2 Mixed hyperlipidemia (principal); Z13.1 Encounter for screening for diabetes mellitus; I10 Essential (primary) hypertension; E66.01 Morbid (severe) obesity due to excess calories; Z68.43 Body mass index [BMI] 50.0-59.9, adult
CPT/HCPCS: 36415; 80048; 80061; 80076; 83036; 83735; 84439; 84443; 85025